=== PATIENT | female | born 2000 | race Caucasian/White ===

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

== ENCOUNTER → 2019-01-17 15:12 | Outpatient (CLI) | payer MEDICAID, SELFPAY | PROVIDERS: Visit Provider Nurse Practitioner Obstetrics & Gynecology | DX: Z34.90 Encounter for supervision of normal pregnancy, unspecified, unspecified trimester (principal) | CPT/HCPCS: 86403 ==

== ENCOUNTER 2019-02-03 01:57 | Outpatient (CLI) | payer MEDICAID, SELFPAY ==
[2019-02-03 02:30] VITALS: BMI 30.2
[2019-02-03 02:31] VITALS: BMI 30.2
[2019-02-03 02:41] LABS: Microscopic, Urine URINE MICROSCOPIC (MICROSCOPIC)
[2019-02-03 02:43] LABS: Appearance,Urine SL CLOUDY (Clear); Bilirubin,Urine Negative (Negative); Blood, Urine Negative (Negative); Color,Urine YELLOW (Yellow); Glucose,Urine (UA) Negative (Negative); Ketones,Urine Negative (Negative); Leukocyte Esterase,Urine 1+ (Negative); Nitrate,Urine Negative (Negative); Protein,Urine Negative (Negative); Specific Gravity, Urine <= 1.005 (1.005-1.030); Urobilinogen,Urine 0.2 EU/dl (0.2)
[2019-02-03 02:45] LABS: Squamous Epithelial Cell,Urine 20-50 #/hpf (0-5)
[2019-02-03 02:48] LABS: Amphetamine/Metha Screen,Urine Negative ng/mL (<1000); Barbiturates Screen,Urine Negative ng/mL (<200); Benzodiazepines Screen,Urine Negative ng/mL (<200); Cannabinoid Screen,Urine Negative ng/mL (<50); Cocaine Screen,Urine Negative ng/mL (<300); Methadone Screen,Urine Negative ng/mL (<300); Opiate Screen,Urine Negative ng/mL (<300); Phencyclidine Screen,Urine Negative ng/mL (<25)
== END 2019-02-03 03:30 | disposition home or self-care (01) ==
LOC: OBOUT 01:59 → OB 02:00
PROVIDERS: PCP Internal Medicine Adolescent Medicine; Referring Provider Nurse Practitioner Obstetrics & Gynecology; Visit Provider Obstetrics & Gynecology
DX: O60.03 Preterm labor without delivery, third trimester (principal); Z3A.38 38 weeks gestation of pregnancy
CPT/HCPCS: 59025; 80305; 81001; 87086

== ENCOUNTER 2019-02-03 13:32 | Outpatient (CLI) | payer MEDICAID, SELFPAY ==
[2019-02-03 13:45] VITALS: BP 108/66; PULSE 103; RESP 18; TEMP 36.9; O2SAT 97; BMI 29.9
[2019-02-03 15:00] LABS: Amphetamine/Metha Screen,Urine Negative ng/mL (<1000); Barbiturates Screen,Urine Negative ng/mL (<200); Benzodiazepines Screen,Urine Negative ng/mL (<200); Cannabinoid Screen,Urine Negative ng/mL (<50); Cocaine Screen,Urine Negative ng/mL (<300); Methadone Screen,Urine Negative ng/mL (<300); Opiate Screen,Urine Negative ng/mL (<300); Phencyclidine Screen,Urine Negative ng/mL (<25)
== END 2019-02-03 15:45 | disposition home or self-care (01) ==
LOC: OBOUT 13:34 → OB 13:35
PROVIDERS: PCP Internal Medicine Adolescent Medicine; Visit Provider Nurse Practitioner Obstetrics & Gynecology
DX: O60.03 Preterm labor without delivery, third trimester (principal); Z3A.38 38 weeks gestation of pregnancy
CPT/HCPCS: 59025; 80305; 96360

== ENCOUNTER 2019-02-06 21:47 | Outpatient (CLI) | payer MEDICAID, SELFPAY ==
[2019-02-06 21:54] VITALS: BMI 30.4
[2019-02-06 21:55] VITALS: BP 116/62; PULSE 102; RESP 18; TEMP 37.1; O2SAT 95; BMI 30.4
[2019-02-06 22:03] LABS: Microscopic, Urine URINE MICROSCOPIC (MICROSCOPIC)
[2019-02-06 22:12] LABS: Amphetamine/Metha Screen,Urine Negative ng/mL (<1000); Appearance,Urine CLEAR (Clear); Barbiturates Screen,Urine Negative ng/mL (<200); Benzodiazepines Screen,Urine Negative ng/mL (<200); Bilirubin,Urine Negative (Negative); Blood, Urine Negative (Negative); Cannabinoid Screen,Urine Negative ng/mL (<50); Cocaine Screen,Urine Negative ng/mL (<300); Color,Urine YELLOW (Yellow); Glucose,Urine (UA) Negative (Negative); Ketones,Urine Negative (Negative); Leukocyte Esterase,Urine 1+ (Negative); Methadone Screen,Urine Negative ng/mL (<300); Nitrate,Urine Negative (Negative); Opiate Screen,Urine Negative ng/mL (<300); Phencyclidine Screen,Urine Negative ng/mL (<25); Protein,Urine Negative (Negative); Specific Gravity, Urine <= 1.005 (1.005-1.030); Urobilinogen,Urine 0.2 EU/dl (0.2)
[2019-02-06 22:34] LABS: Bacteria,Urine Trace /lpf
== END 2019-02-06 23:00 | disposition home or self-care (01) ==
LOC: OBOUT 21:48 → OB 21:48
PROVIDERS: PCP Internal Medicine Adolescent Medicine; Visit Provider Obstetrics & Gynecology
DX: O60.03 Preterm labor without delivery, third trimester (principal); Z3A.38 38 weeks gestation of pregnancy
CPT/HCPCS: 59025; 80305; 81001; 87086

== ENCOUNTER 2019-02-08 19:16 | Outpatient (CLI) | payer MEDICAID, SELFPAY ==
[2019-02-08 19:24] VITALS: BMI 30.4
[2019-02-08 19:40] LABS: Microscopic, Urine URINE MICROSCOPIC (MICROSCOPIC)
[2019-02-08 19:47] LABS: Appearance,Urine CLEAR (Clear); Bilirubin,Urine Negative (Negative); Blood, Urine Negative (Negative); Color,Urine YELLOW (Yellow); Glucose,Urine (UA) Negative (Negative); Ketones,Urine Negative (Negative); Leukocyte Esterase,Urine Negative (Negative); Nitrate,Urine Negative (Negative); Protein,Urine Negative (Negative); Urobilinogen,Urine 0.2 EU/dl (0.2)
[2019-02-08 19:51] LABS: Amphetamine/Metha Screen,Urine Negative ng/mL (<1000); Barbiturates Screen,Urine Negative ng/mL (<200); Benzodiazepines Screen,Urine Negative ng/mL (<200); Cannabinoid Screen,Urine Negative ng/mL (<50); Cocaine Screen,Urine Negative ng/mL (<300); Methadone Screen,Urine Negative ng/mL (<300); Opiate Screen,Urine Negative ng/mL (<300); Phencyclidine Screen,Urine Negative ng/mL (<25)
[2019-02-08 19:53] LABS: Amorphous Sediment,Urine Trace /lpf; WBC,Urine Occasional #/hpf (0-3)
[2019-02-08 20:15] LABS: Fetal Membrane Rupture (Rapid) Negative (Negative)
[2019-02-08 20:23] VITALS: BP 116/69; PULSE 95; RESP 18; TEMP 37.1; O2SAT 98; BMI 30.4
== END 2019-02-08 20:55 | disposition home or self-care (01) ==
LOC: OBOUT 19:18 → OB 19:20
PROVIDERS: PCP Nurse Practitioner Obstetrics & Gynecology; Visit Provider Nurse Practitioner Obstetrics & Gynecology
DX: O60.03 Preterm labor without delivery, third trimester (principal); Z3A.38 38 weeks gestation of pregnancy
CPT/HCPCS: 59025; 80305; 81001; 84112

== ENCOUNTER 2019-02-10 14:51 | Outpatient (CLI) | payer MEDICAID, SELFPAY ==
[2019-02-10 15:12] VITALS: BP 115/57; PULSE 90; RESP 18; TEMP 36.8; O2SAT 98; BMI 30.4
[2019-02-10 15:45] LABS: Microscopic, Urine URINE MICROSCOPIC (MICROSCOPIC)
[2019-02-10 15:54] LABS: Appearance,Urine CLOUDY (Clear); Bilirubin,Urine Negative (Negative); Blood, Urine Negative (Negative); Color,Urine YELLOW (Yellow); Glucose,Urine (UA) Negative (Negative); Ketones,Urine Negative (Negative); Leukocyte Esterase,Urine 3+ (Negative); Nitrate,Urine Negative (Negative); Protein,Urine Negative (Negative); Urobilinogen,Urine 0.2 EU/dl (0.2)
[2019-02-10 15:55] LABS: Amphetamine/Metha Screen,Urine Negative ng/mL (<1000); Barbiturates Screen,Urine Negative ng/mL (<200); Benzodiazepines Screen,Urine Negative ng/mL (<200); Cannabinoid Screen,Urine Negative ng/mL (<50); Cocaine Screen,Urine Negative ng/mL (<300); Methadone Screen,Urine Negative ng/mL (<300); Opiate Screen,Urine Negative ng/mL (<300); Phencyclidine Screen,Urine Negative ng/mL (<25)
[2019-02-10 16:12] LABS: Bacteria,Urine 1+ /lpf; Squamous Epithelial Cell,Urine 20-50 #/hpf (0-5)
--- NOTE | 2019-02-10 17:29 | P.PN_ITS ---
Internal Medicine - PN: Subj *Date: 02/10/19 *Time: 17:28 Interval history: She is a 19-year-old 2 para 1 at 38+ weeks gestational age. She is scheduled for in 48 hours time. She complains of contractions and discomfort. Exam Vital signs and Labs for Last 24 Hours: Temp Pulse Resp BP Pulse Ox 98.3 F 90 18 115/57 L 98 02/10/19 15:12 02/10/19 15:12 02/10/19 15:12 02/10/19 15:12 02/10/19 15:12 Laboratory Results - last 24 hr 02/10/19 15:07: Urine Color Yellow, Urine Appearance Cloudy, Urine pH 7.0, Ur Specific [place] 1.010, Urine Protein Negative, Urine Glucose (UA) Negative, Urine Ketones Negative, Urine Blood Negative, Urine Nitrate Negative, Urine Bilirubin Negative, Urine Urobilinogen 0.2, Ur Leukocyte Esterase 3+ A, Urine WBC 5-10, Ur Squamous Epith Cells 20-50, Urine Bacteria 1+ 02/10/19 15:07: Urine Opiates Screen Negative, Urine Methadone Screen Negative, Ur Barbituates Screen Negative, Ur Phencyclidine Scrn Negative, Ur Amphetamines Screen Negative, U Benzodiazepines Scrn Negative, Urine Cocaine Screen Negative, U Marijuana (THC) Screen Negative I & O for Last 24 hours: Intake & Output 02/08/19 02/09/19 02/10/19 02/11/19 11:59 11:59 11:59 11:59 Weight 172 lb - Constitutional no acute distress - *Routine HEENT Exam Head: Present: normocephalic Eye: Present: EOMI, PERRL ENT: Present: mucous membranes moist - *Routine Exam Patient deferred: external exam, groin exam, perineal exam Assessment and Plan (1) False labor Current visit: Yes Status: Acute Category: Medical Code(s): O47.9 - False labor, unspecified - Assessment and plan all Dx Assessment and Plan for all problems:: Her cervix is 2 cm 50% effaced and has not changed. She is having irregular contractions she does not appear to be in any distress. As result of that we are giving her Vistaril to help her sleep and she will follow-up with me in the morning. We will plan her at 48 hours.
== END 2019-02-10 17:36 | disposition home or self-care (01) ==
LOC: OBOUT 14:53 → OB 14:53
PROVIDERS: PCP Internal Medicine Adolescent Medicine; Visit Provider Nurse Practitioner Obstetrics & Gynecology
DX: O60.03 Preterm labor without delivery, third trimester (principal); Z3A.39 39 weeks gestation of pregnancy
CPT/HCPCS: 59025; 80305; 81001; 87086

== ENCOUNTER 2019-02-11 16:23 | Inpatient (IN) ==
[2019-02-11 17:29] LABS: Microscopic, Urine URINE MICROSCOPIC (MICROSCOPIC)
[2019-02-11 18:01] LABS: Appearance,Urine CLEAR (Clear); Bilirubin,Urine Negative (Negative); Blood, Urine Negative (Negative); Color,Urine YELLOW (Yellow); Glucose,Urine (UA) Negative (Negative); Ketones,Urine Negative (Negative); Leukocyte Esterase,Urine 1+ (Negative); PH,Urine 6.5 (5.0-8.5); Protein,Urine Negative (Negative); Urobilinogen,Urine 0.2 EU/dl (0.2)
[2019-02-11 18:05] LABS: Amphetamine/Metha Screen,Urine Negative ng/mL (<1000); Barbiturates Screen,Urine Negative ng/mL (<200); Benzodiazepines Screen,Urine Negative ng/mL (<200); Cannabinoid Screen,Urine Negative ng/mL (<50); Cocaine Screen,Urine Negative ng/mL (<300); Methadone Screen,Urine Negative ng/mL (<300); Opiate Screen,Urine Negative ng/mL (<300); Phencyclidine Screen,Urine Negative ng/mL (<25)
[2019-02-11 18:10] LABS: Bacteria,Urine Trace /lpf
[2019-02-11 19:18] LABS: Basophils % 0.2 % (0.1-2.0); Eosinophils # 0.1 K/mm3 (0.0-0.4); Eosinophils % 0.9 % (0.1-12.0); Hematocrit 39.3 % (37.0-47.0); Hemoglobin 13.1 g/dL (12.2-16.2); Lymphocytes # 1.8 K/mm3 (0.7-4.5); Lymphocytes % 17.8 % (10-50); Mean Corpuscular HGB Conc 33.4 g/dL (31.8-35.4); Mean Platelet Volume 8.1 fl (7.4-10.4); Monocytes # 0.5 K/mm3 (0.1-1.0); Neutrophils # 7.8 K/mm3 (1.8-7.8); Neutrophils % 76.1 % (37.0-80.0); Platelet Count 257 K/mm3 (142-424); Red Blood Count 4.37 M/mm3 (4.20-5.40); Red Cell Distribution Width 15.8 % (11.5-17.5); White Blood Count 10.2 K/mm3 (4.5-13.0)
--- NOTE | 2019-02-11 19:43 | History & Physical Report ---
OB - H&P: HPI Antepartum - History of Present Illness Chief complaint: Term , contractions, pain History of present illness: She is a 19-year-old 2 para 1 at 39 weeks. She is due for a section tomorrow morning. She came in having contractions. She has not changed her cervix. She has had multiple admissions over the last couple of weeks and her cervix has remained 2 cm 50% and station -2. We are going to admit her overnight for pain relief and her is scheduled for tomorrow morning. - History of Present Criteria for establishing EDC:: LMP confirmed by 1st trimester US care: good care Ultrasounds: normal 1st trimester US, normal mid trimester US Obstetrical complications: none Medical complications: none [facility] History I have reviewed the patient's past medical history: Yes Medical History: Reports:: Anxiety, Asthma, Depression, Migraine Denies:: Cancer, Diabetes Mellitus Type 1, Diabetes Mellitus Type 2, MRSA *Have you ever received a pneumonia vaccine?: No *Have you received a flu vaccine this season?: No Other Medical History: Reports: Arthritis, Thyroid Disease Other Surgeries: Yes: No Previous Surgery, Amputation: No Fractures: No - *Social History Smoking Status: Current every day smoker Tobacco Type: cigarettes # Packs/Day (cigarettes): 1 #Yrs smoked (if former smoker): 2 Alcohol Intake: never Alcohol Intake Frequency:: holidays/special occasions only Substance Use Type: denies use *Occupational Status:: unemployed Housing: house Household Members: family *Travel in the last 8 weeks: None - Psychiatric History Pschychiatric History:: Reports:: Anxiety, Depression Family Hx:: Diabetes, Hypertension, Cancer Para: 1 Review of Systems - Review of Systems Review of systems:: pertinent systems reviewed and negative unless documented below Meds Home Medications Medication Instructions Recorded Confirmed Type 1 tab PO HS 06/12/17 02/11/19 History vitamin,calcium,vbdagora-yafl-kxash acid tablet RX: Docusate Sodium 100 mg PO DAILY 02/06/19 02/11/19 History RX: Ferrous Sulfate 325 mg PO DAILY 02/06/19 02/11/19 History RX: Loratadine [Allergy Relief] 10 mg PO DAILY 02/06/19 02/11/19 History RX: Sertraline HCl [Zoloft] 50 mg PO DAILY 02/06/19 02/11/19 History Allergies Allergy/AdvReac Type Severity Reaction Status Date / Time cephalexin [From KEFLEX] Allergy Intermediate I-RASH Verified 02/11/19 09:52 OB - H&P: Exam - Physical Exam Vital signs: Temp Pulse Resp BP Pulse Ox 98.4 F 86 20 133/71 98 02/11/19 17:04 02/11/19 17:04 02/11/19 17:04 02/11/19 17:04 02/11/19 17:04 - Constitutional no acute distress - Routine HEENT Exam Head: Present: normocephalic Eye: Present: EOMI, PERRL ENT: Present: mucous membranes moist - Routine Neck Exam Present: supple, full ROM - Routine Respiratory Exam Absent: accessory muscle use (good air entry bilaterally), respiratory distress, wheezes, crackles - Routine Cardiovascular Exam Present: RRR. Absent: murmur - Routine Abdominal Exam Present: soft, normoactive bowel sounds. Absent: tenderness, distended, guarding - Routine Rectal Exam Patient deferred: visual exam, digital exam - Routine Exam Patient deferred: external exam, groin exam, perineal exam - Routine Extremities Exam Present: full ROM. Absent: cyanosis, edema - Routine Skin Exam Present: intact. Absent: cyanosis - Routine Neurological Exam Present: alert, oriented X3 - Routine Psychiatric Exam Present: normal affect OB - Results - Labs Labs: Short CBC 02/11/19 Range/Units 19:08 WBC 10.2 (4.5-13.0) K/mm3 Hgb 13.1 (12.2-16.2) g/dL Hct 39.3 (37.0-47.0) % Plt Count 257 (142-424) K/mm3 Urine 02/11/19 Range/Units 16:30 Urine Color Yellow (Yellow) Urine Appearance Clear (Clear) Urine pH 6.5 (5.0-8.5) Ur Specific [place] 1.010 (1.005-1.030) Urine Protein Negative (Negative) Urine Glucose (UA) Negative (Negative) OB - A/P Antepartum (1) Previous section Current visit: Yes Status: Acute (2) Delivery by section of full-term Current visit: Yes Status: Acute - Additional Plan Planning to breastfeed?: No Plan: expectant management Additional Information:: She is admitted for pain relief overnight and her section is scheduled for tomorrow morning. She is having contractions but her cervix has remained unchanged.
[2019-02-11 20:25] LABS: Anion Gap 15.9 mEq/L (5-15); Calcium 10.6 mg/dL (8.5-10.1)
--- NOTE | 2019-02-12 06:30 | Progress Note ---
[facility] Anesthesia Checklist - Structural Data Admitted From: Inpatient Planned Operative Procedure/s: labor epidural Consent for Planned Operative Procedure(s) Verified: Yes - Additional verifications Anesthesia Reactions: No - Airway Assessment C-Spine Mobility Assessed: Yes TMJ Mobility Assessed: Yes Dentition: Good Dentition - Neurological Assessment Level of Consciousness: Awake, Alert, Appropriate, Restless - Anesthesia Plan Anesthesia Risk discussed: Yes Anesthesia Plan: Verified ASA Class: II Anesthesia Type: Epidural [facility] History I have reviewed the patient's past medical history: Yes Medical History: Reports:: Anxiety, Asthma, Depression, Migraine Denies:: Cancer, Diabetes Mellitus Type 1, Diabetes Mellitus Type 2, MRSA *Have you ever received a pneumonia vaccine?: No *Have you received a flu vaccine this season?: No Other Medical History: Reports: Arthritis, Thyroid Disease Anesthesia experience/problems:: none Other Surgeries: Yes: No Previous Surgery, Amputation: No Fractures: No - *Social History Educational Level: Completed High School Smoking Status: Current every day smoker Tobacco Type: cigarettes # Packs/Day (cigarettes): 1 #Yrs smoked (if former smoker): 2 Alcohol Intake: never Alcohol Intake Frequency:: holidays/special occasions only Substance Use Type: denies use *Occupational Status:: unemployed Housing: house Household Members: family *Travel in the last 8 weeks: None - Psychiatric History Pschychiatric History:: Reports:: Anxiety, Depression Family Hx:: Diabetes, Hypertension, Cancer Para: 1
--- NOTE | 2019-02-12 08:20 | Operative Note ---
Date of procedure: 02/12/19 Pre-op Diagnosis:: Term , previous section Post-op Diagnosis:: Term , previous section Procedure performed:: Repeat lower segment transverse section Surgeon:: Zain Brar MD Mash Grinder(s):: Dr. Rey PLASMA CUTTING MACHINE OPERATOR:: Dakota Pena Anesthesia: epidural Estimated blood loss (mL): 600 Clinical Note:: She is a 19-year-old 2 para 1 whose had a previous section. She was offered repeat lower segment transverse section at term. Operative findings:: She delivered a liveborn female child at 7:49 AM on the morning of February 12, 2019. Baby had Apgars of 8 at 1 minute and 9 at 5 minutes. pH was 7.37. There was thin meconium. The lower uterine segment was extremely thin. Operative note:: She was taken to the operating room where epidural anesthesia was found be adequate. She was prepped and draped in normal sterile fashion in the supine position with a leftward tilt. A Covington catheter was in the bladder. A Pfannenstiel skin incision was made with knife then carried through to the underlying layer of fascia with cautery. The fascia was opened in the midline with cautery and extended laterally using Solis scissors. [place] clamps were applied to the superior aspect of the fascial incision which was tented up and the underlying rectus muscles dissected off using cautery. The Holly clamps were then applied to the inferior aspect of the fascial incision which in a similar f ashion was tented up and the underlying rectus muscles dissected off using cautery. The rectus muscles were then in the midline, the peritoneum identified, and entered sharply with Metzenbaum scissors. This incision was then extended superiorly and inferiorly with cautery. We had good visualization of the bladder inferiorly. The bladder peritoneum was then opened in the midline and extended laterally using Metzenbaum scissors. A bladder flap was created digitally. Transverse incision was made through the uterine muscle to the amnion. This incision was then extended laterally using fingers traction. The amnion was entered sharply with knife. There was thin meconium in the amniotic fluid. The 's head was then delivered atraumatically. This was followed by the anterior shoulder and the rest of the 's body atraumatically. The oropharynx and nasopharynx were DeLee suctioned. The was then handed off to Dr. Guzmán who assigned Apgars of 8 at 1 minute and 9 at 5 minutes. We then obtained cord blood as well as cord pH. The pH was 7.37. Using gentle traction on the cord and countertraction on the fundus I was able to easily deliver the placenta intact. It had a normal three-vessel cord. The uterus was then cleared of clots and debris . The uterine incision was then closed using running 0 Vicryl suture in a locked fashion. A second layer of the same suture was used to imbricate the first layer. The bladder peritoneum was then closed using running 2-0 Vicryl suture in a locked fashion. The gutters and cul-de-sac were then cleared of clots and debris . Once again hemostasis was assured. The uterus was returned to the abdominal cavity. The peritoneum was grasped with Megan clamps and closed using running 2-0 Vicryl suture. The rectus muscles were then reapproximated using running 0 Vicryl suture. The fascia was closed using running #1 Vicryl suture. The subcutaneous tissues were then irrigated with warm water followed by closure Primitivo's fascia using running 2-0 Monocryl suture. The skin was closed with carlos. I then cleaned the skin with Hibiclens. Sterile dressings were applied. She tolerated the procedure well and was taken to the recovery room in excellent condition. All sponges, instrument and needle counts were correct. Estimated blood loss was approximately 600 mL. Condition: stable Disposition: PACU Specimens:: None Complications:: None
--- NOTE | 2019-02-12 08:26 | Progress Note ---
[facility] Anesthesia Record Part II Discharge Time: 08:52 Destination: Obstetric PACU nurse assessment reviewed?: Yes Patient Condition:: Good Anesthesia Complications:: None Swallowing reflex intact?: Yes Cyanosis?: No
--- NOTE | 2019-02-12 08:26 | Progress Note ---
[facility] Anesthesia Record Part I Intake, IV Amount: 1,200 Estimated blood loss (mL): 600 Urine output (mL): 300 Blood Products used (#): none Blood Pressure: 141/75 SaO2: 98 Pulse Rate: 100 Respiratory Rate: 16 Temperature: 98.6 F Patient is:: Awake, Drowsy, Stable Stable to PACU at:: 08:22
--- NOTE | 2019-02-12 11:09 | Pharmacy Consult Notes ---
[facility] Pharmacy VTE Monitoring - Patient Demographics Admission date: 02/12/19 Report Date: 02/12/19 Time: 11:09 Allergies/Adverse Reactions: Patient Allergies cephalexin [From KEFLEX] Allergy (Intermediate, Verified 02/11/19 09:52) I-RASH Height: 1.52 m Weight: 78.018 kg Patient Problems: Current Active Problems Previous section (Acute) Delivery by section of full-term infant (Acute) - VTE Risk Labs: VTE Related Lab Results Hgb 13.1 g/dL (12.2-16.2) 02/11/19 19:08 Hct 39.3 % (37.0-47.0) 02/11/19 19:08 Plt Count 257 K/mm3 (142-424) 02/11/19 19:08 BUN 4 mg/dL (7-18) L 02/11/19 19:08 Creatinine 0.75 mg/dL (0.55-1.02) 02/11/19 19:08 Estimated Creat Clear 147 mL/min (50-200) 02/11/19 19:08 - Prophylaxis VTE Prophylaxis Ordered?: Yes Types of VTE Prophylaxis: IPCS Thigh High Location of Applied Device: Bilateral Lower Extremeties
[2019-02-12 12:13] LABS: Hematocrit 33.1 % (37.0-47.0)
[2019-02-12 12:14] LABS: Hemoglobin 10.9 g/dL (12.2-16.2)
[2019-02-12 16:29] LABS: Hemoglobin 9.1 g/dL (12.2-16.2)
[2019-02-13 08:35] LABS: Basophils % 0.2 % (0.1-2.0); Eosinophils # 0.1 K/mm3 (0.0-0.4); Eosinophils % 0.6 % (0.1-12.0); Hematocrit 26.8 % (37.0-47.0); Hemoglobin 8.8 g/dL (12.2-16.2); Lymphocytes # 2.5 K/mm3 (0.7-4.5); Lymphocytes % 20.8 % (10-50); Mean Corpuscular HGB Conc 32.7 g/dL (31.8-35.4); Mean Corpuscular Volume 91.9 fl (81-99); Monocytes # 0.6 K/mm3 (0.1-1.0); Neutrophils # 8.8 K/mm3 (1.8-7.8); Neutrophils % 73.6 % (37.0-80.0); Platelet Count 221 K/mm3 (142-424); Red Blood Count 2.92 M/mm3 (4.20-5.40); Red Cell Distribution Width 15.9 % (11.5-17.5)
--- NOTE | 2019-02-13 08:50 | Progress Note ---
Internal Medicine - PN: Subj *Date: 02/13/19 *Time: 08:49 Interval history: She is doing very well this morning. She denies any fever or chills. We are waiting for her blood work. She looks well. She does not look pale. Her hemoglobin yesterday was 9.1. Her lochia is normal. She is bottlefeeding. Exam Vital signs and Labs for Last 24 Hours: Temp Pulse Resp BP Pulse Ox 98.3 F 83 18 112/57 L 98 02/13/19 05:23 02/13/19 05:23 02/13/19 05:23 02/13/19 05:23 02/13/19 05:23 Laboratory Results - last 24 hr 02/12/19 12:00: Hgb 10.9 L D, Hct 33.1 L 02/12/19 16:00: Hgb 9.1 L D, Hct 28.0 L I & O for Last 24 hours: Intake & Output 02/10/19 02/11/19 02/12/19 02/13/19 11:59 11:59 11:59 11:59 Intake Total 1200 / 1200 Balance 1200 / 1200 Weight 172 lb Microbiology Reports for the Last 24 Hours: Microbiology 02/11/19 16:30 Urine,Clean Catch Urine Culture - Final Multiple organisms, suggests contamination. - Constitutional no acute distress Assessment and Plan (1) Previous section Current visit: Yes Status: Acute Category: Surgical Code(s): Z98.891 - History of uterine scar from previous surgery (2) Delivery by section of full-term infant Current visit: Yes Status: Acute Category: Medical Code(s): O82 - Encounter for delivery without indication (3) hemorrhage Current visit: Yes Status: Acute Category: Medical Code(s): O72.1 - Other immediate hemorrhage - Assessment and plan all Dx Assessment and Plan for all problems:: She is doing well this morning. We will await her blood work. She will be here for another 48 hours.
--- NOTE | 2019-02-14 09:17 | Progress Note ---
Internal Medicine - PN: Subj *Date: 02/14/19 *Time: 09:16 Interval history: She continues to do well this morning. She has some complaints of swelling in her legs but otherwise she is doing well. Her incision is clean and dry. She is bottlefeeding. Her lochia is normal. Exam Vital signs and Labs for Last 24 Hours: Temp Pulse Resp BP Pulse Ox 98.2 F 80 18 95/54 L 100 02/14/19 08:00 02/14/19 08:00 02/14/19 08:00 02/14/19 08:00 02/14/19 08:00 I & O for Last 24 hours: Intake & Output 02/11/19 02/12/19 02/13/19 02/14/19 11:59 11:59 11:59 11:59 Intake Total 1200 / 1200 Balance 1200 / 1200 Weight 172 lb Microbiology Reports for the Last 24 Hours: Microbiology 02/11/19 16:30 Urine,Clean Catch Urine Culture - Final Multiple organisms, suggests contamination. - Constitutional no acute distress - *Routine Extremities Exam Present: edema. Absent: calf tenderness Comments: She has 2+ edema of her lower legs. Assessment and Plan (1) Previous section Current visit: Yes Status: Acute Category: Surgical Code(s): Z98.891 - History of uterine scar from previous surgery (2) Delivery by section of full-term Current visit: Yes Status: Acute Category: Medical Code(s): O82 - Encounter for delivery without indication (3) hemorrhage Current visit: Yes Status: Acute Category: Medical Code(s): O72.1 - Other immediate hemorrhage - Assessment and plan all Dx Assessment and Plan for all problems:: She continues to do well. We will encourage her to put her feet up. We will see her back in the morning. We will plan to send her home tomorrow.
[2019-02-15 09:17] VITALS: BP 116/70
--- NOTE | 2019-02-15 09:53 | Discharge Summary ---
General - General Admission date:: 02/11/19 Discharge date: 02/15/19 HPI HPI: She is a 19-year-old 2 now para 2 who was 39 weeks gestational age. She has had a previous section was offered repeat lower segment transverse section at term. She was admitted the night before her surgery with occasional contractions. Hospital Course Hospital Course: On February 12, 2019 she underwent a repeat lower segment transverse section. She delivered a liveborn female child at 7:49 AM. Baby had Apgars of 8 at 1 minute and 9 at 5 minutes. She weighed 8 pounds 12 ounces. She has done well postoperatively and has remained afebrile throughout her hospitalization. She is eating and drinking and ambulating. She is bottlefeeding. Her lochia is normal. She has a positive blood, she is rubella immune and was group A streptococcus negative. She was given the usual instructions with respect to limiting her activity, driving and sexual activity. She was given an injection of Depo-Provera prior to discharge. Her condition on discharge is stable and improved. She will be given a prescription for Percocet 5/325 number 30 tablets. She will also take Motrin along with this. Her condition on discharge is stable. Rhogam Administration: Not Indicated Objective Vital signs: Temp Pulse Resp BP Pulse Ox 98.0 F 90 20 116/70 98 02/15/19 09:17 02/15/19 09:17 02/15/19 09:17 02/15/19 09:17 02/15/19 09:17 no acute distress DS: Diagnosis - Discharge Diagnosis (1) Previous section Status: Acute (2) Delivery by section of full-term Status: Acute (3) hemorrhage Status: Acute Discharge Plan - Patient Discharge Instructions ACTIVITY: No heavy lifting DIET: continue same diet - Follow up Plan Disposition: Home, Self-Intermediate Medications: Home Medications Medication Instructions Recorded Confirmed Type 1 tab PO HS 06/12/17 02/12/19 History vitamin,calcium,wceiedcx-kmym-ttxvv acid tablet Docusate Sodium 100 mg PO DAILY 02/06/19 02/12/19 History Ferrous Sulfate 325 mg PO DAILY 02/06/19 02/12/19 History Loratadine [Allergy Relief] 10 mg PO DAILY 02/06/19 02/12/19 History Sertraline HCl [Zoloft] 50 mg PO DAILY 02/06/19 02/12/19 History Oxycodone HCl/Acetaminophen 1 - 2 tab PO Q4-6H PRN #30 tab 02/15/19 Rx [Percocet 5/325mg tablet] Prescriptions/Medication Reconciliation: New Oxycodone HCl/Acetaminophen [Percocet 5/325mg tablet] 1 - 2 tab PO Q4-6H PRN #30 tab PRN Reason: Severe Pain Continued vitamin,calcium,fpjeucgx-xzpd-ohtpe acid tablet 1 tab PO HS Sertraline HCl [Zoloft] 50 mg PO DAILY Docusate Sodium 100 mg PO DAILY Loratadine [Allergy Relief] 10 mg PO DAILY Ferrous Sulfate 325 mg PO DAILY - Problem Reconciliation Problems Reviewed?: Yes
== END 2019-02-15 14:45 | disposition home or self-care (01) | DRG 788 ==
LOC: OBOUT 16:23 → OB 16:26
PROVIDERS: ADMIT Nurse Practitioner Obstetrics & Gynecology; ATTEND Nurse Practitioner Obstetrics & Gynecology
CPT/HCPCS: 36415; 59025; 80048; 80305; 81001; 82800; 84112; 85014; 85018; 85025; 86850; 87086; J0595; J1050

== ENCOUNTER → 2019-12-24 10:48 | Outpatient (CLI) | payer OTHER, SELFPAY ==
[2019-12-27 19:55] LABS: HCG,Quantitative 16873 mIU/ml (0-5.42)
== END ==
PROVIDERS: Visit Provider Nurse Practitioner Obstetrics & Gynecology
DX: Z34.90 Encounter for supervision of normal pregnancy, unspecified, unspecified trimester (principal)
CPT/HCPCS: 36415; 84702

== ENCOUNTER → 2019-12-30 13:56 | Outpatient (CLI) | payer OTHER, SELFPAY ==
[2020-01-02 09:11] LABS: Neisseria gonorrhoeae, NAA Negative (Negative)
== END ==
PROVIDERS: Visit Provider Nurse Practitioner Obstetrics & Gynecology
DX: Z34.90 Encounter for supervision of normal pregnancy, unspecified, unspecified trimester (principal)
CPT/HCPCS: 87491; 87591

== ENCOUNTER → 2020-01-05 12:35 | Outpatient (CLI) | payer OTHER, SELFPAY ==
--- NOTE | 2020-01-05 12:35 | US_ITS ---
PROCEDURE: US OB <= 14 WEEKS FETUS CLINICAL INDICATION: for dates Early Ob for dates COMPARISON: US OBFEMAT US OB /maternal detail from 09/30/2018 FINDINGS: An intrauterine gestational sac is present with a pole with a crown-rump length of 1.67cm correlating to gestational age of 8weeks 1day. heart tones are present with an FHR of 178bpm. Yolk sac is noted. There is a 1.3 cm right ovarian cyst containing a small at septation. There is a 2 cm left ovarian cyst. IMPRESSION: Live IUP at 8 weeks 1 day Estimated due date by Ultrasound is 08/15/2020 Dictated b Yehuda Mcfadden MD 01/05/2020 16:00 Yehuda Mcfadden MD in [facility] 01/05/2020 16:00
== END ==
PROVIDERS: PCP Internal Medicine Adolescent Medicine; Visit Provider Nurse Practitioner Obstetrics & Gynecology
DX: Z34.90 Encounter for supervision of normal pregnancy, unspecified, unspecified trimester (principal)
CPT/HCPCS: 76801

== ENCOUNTER 2020-01-22 12:39 | Emergency (ER) | payer OTHER, SELFPAY ==
[2020-01-22 12:51] VITALS: BP 108/67; PULSE 91; RESP 16; TEMP 37; O2SAT 98; BMI 21.2
--- NOTE | 2020-01-22 13:01 | US_ITS ---
PROCEDURE: US OB TRANSVAGINAL CLINICAL INDICATION: bleeding MS or bleeding COMPARISON: US US OB <= 14 WEEKS FETUS from 01/05/2020 FINDINGS: An intrauterine gestational sac is present with a pole with a crown-rump length of 4.07cm correlating to gestational age of 11weeks. heart tones are present with an FHR of 164bpm. Yolk sac is noted. There is a 2 cm left ovarian cyst IMPRESSION: Live IUP at 11 weeks Estimated due date by Ultrasound is 08/12/2020 Dictated by: Yehuda Mcfadden MD 01/22/2020 14:40 Yehuda Mcfadden MD in [facility] 01/22/2020 14:40
[2020-01-22 13:10] VITALS: BP 128/73; PULSE 78; O2SAT 98
--- NOTE | 2020-01-22 13:13 | HMH.EDUROGF ---
ED Disposition Clinical Impression: Vaginal bleeding during Disposition: Home, Self-Care Condition on Discharge: Good Instructions: DI for Vaginal Bleeding Additional Instructions: You were seen on an emergency basis. It is very important that you follow up with your primary care provider and/or specialist as we discussed within 2 days. All labs and imaging were obtained and interpreted here to rule out life threatening emergencies, but your final results should be reviewed by your primary doctor at your follow up appointment. Please return to the emergency department if any of your symptoms worsen, or if they do not improve as we discussed. Referrals: Rubens Guzmán MD [Primary Care Provider] - - Critical Care Critical Care Time: No Attestation: On 01/22/20, the high probability of a clinically significant, sudden or life threatening deterioration of the following system(s) required my full and direct attention, intervention and personal management. The time I documented below is in addition to time spent performing reported procedures but includes the following listed in this critical care notation. Medical Decision Making - Jairo Inquiry Pt receiving controlled substance: No Vital Signs: 01/22/20 12:51 01/22/20 13:10 Temperature 98.6 F Temperature Source Oral Pulse Rate [Right Brachial] 91 H 78 Respiratory Rate 16 Blood Pressure [Right Arm] 108/67 L 128/73 Blood Pressure Mean [Right Arm] 80 91 Blood Pressure Source [Right Arm] Automatic Cuff Automatic Cuff Blood Pressure Position [Right Arm] Sitting Sitting 02 Sat by Pulse Oximetry 98 98 Oxygen Delivery Method Room Air Room Air - Lab Data Lab Results 01/22/20 13:10: WBC 8.5, RBC 4.62, Hgb 13.2, Hct 38.6, MCV 83.4, MCH 28.6, MCHC 34.3, RDW 14.4, Plt Count 233, MPV 8.6, Neut % (Auto) 70.1, Lymph % (Auto) 25.3, [place] % (Auto) 3.1, Eos % (Auto) 1.2, Baso % (Auto) 0.3, Neut # (Auto) 5.9, Lymph # (Auto) 2.1, [place] # (Auto) 0.3, Eos # (Auto) 0.1, Baso # (Auto) 0.0 01/22/20 13:10: Sodium 139, Potassium 4.1, Chloride 104, Carbon Dioxide 26, Anion Gap 13.1, BUN 5 L, Creatinine 0.60, Estimated Creat Clear 136, Estimated GFR 126, Est GFR ( Amer) 153, Glucose 91, Calcium 9.6, Total Bilirubin 0.3, AST 20, ALT 20, Alkaline Phosphatase 52, Total Protein 7.2, Albumin 4.1, Globulin 3.1, Albumin/Globulin Ratio 1.3, HCG, Quant [id number] H 01/22/20 13:10: Blood Type A Positive, Antibody Screen Negative Result diagrams: 01/22/20 13:10 01/22/20 13:10 Medical Decision Narrative: 20-year-old female approximately 10 weeks presenting with new onset vaginal bleeding. Nontoxic, afebrile, hemodynamically stable initial and repeat abdominal exam negative for rebound/guarding/rigidity. Transvaginal ultrasound demonstrated a viable IUP. Hemoglobin and hematocrit are nonactionable. Electrolytes are normal. Patient has a known urinary tract infection is already being treated. Rh+ RhoGam not indicated. hCG documented and she will follow-up with obstetrics in 2 days. Female Urogenital HPI - General Chief complaint: Vaginal Bleeding Stated complaint: 10 wks preg cramping bleeding Time Seen by Provider: 01/22/20 13:13 Mode of Arrival: Ambulatory Limitations: No Limitations Description of Symptoms (Recalled from ER Triage Doc. by RN): Patient reports she is 10 wks and about an hour ago started having some bright red bleeding and cramping. - History of Present Illness HPI Narrative: This is a 20-year-old female who presents with a 1 hour history of acute onset moderate bright red blood per vagina with associated lower abdominal cramping that feels like a period. She also had some nausea with this. She has a active UTI and was prescribed Macrobid but has not taken her first dose yet. No fever, chills, vomiting, diarrhea, constipation, cough, shortness of breath, weakness. : Yes - Related Data Home Medications Medication Instru
[2020-01-22 13:22] LABS: Basophils % 0.3 % (0.1-2.0); Eosinophils # 0.1 K/mm3 (0.0-0.4); Eosinophils % 1.2 % (0.1-12.0); Hematocrit 38.6 % (37.0-47.0); Hemoglobin 13.2 g/dL (12.2-16.2); Lymphocytes # 2.1 K/mm3 (0.7-4.5); Lymphocytes % 25.3 % (10-50); Mean Corpuscular HGB Conc 34.3 g/dL (31.8-35.4); Mean Corpuscular Hemoglobin 28.6 pg (27.0-31.2); Mean Corpuscular Volume 83.4 fl (81-99); Mean Platelet Volume 8.6 fl (7.4-10.4); Monocytes # 0.3 K/mm3 (0.1-1.0); Monocytes % 3.1 % (1.7-9.3); Neutrophils # 5.9 K/mm3 (1.8-7.8); Neutrophils % 70.1 % (37.0-80.0); Platelet Count 233 K/mm3 (142-424); Red Blood Count 4.62 M/mm3 (4.20-5.40); Red Cell Distribution Width 14.4 % (11.5-17.5); White Blood Count 8.5 K/mm3 (4.8-10.8)
[2020-01-22 13:26] LABS: Chloride 104 mmol/L (98-107); Potassium 4.1 mmoL/L (3.5-5.1); Sodium 139 mmol/L (136-145)
[2020-01-22 13:29] LABS: Alanine Aminotransferase 20 U/L (12-78); Albumin Level 4.1 g/dl (3.5-5.0); Albumin/Globulin Ratio 1.3 (1.1-1.8); Alkaline Phosphatase 52 U/L (38-126); Anion Gap 13.1 mEq/L (5-15); Aspartate Amino Transferase 20 U/L (14-36); Bilirubin,Total 0.3 mg/dl (0.2-1.3); Blood Urea Nitrogen 5 mg/dl (7-17); Calcium 9.6 mg/dl (8.4-10.2); Carbon Dioxide 26 mmol/L (22.0-30.0); Creatinine Clearance Estimated 136 mL/min (50-200); Estimated Glomerular Filt Rate 126 ml/min (>60); GFR (African American) 153 ML/MIN (>60); Globulin 3.1 g/dL (1.3-3.2); Glucose 91 mg/dl (74-100); Total Protein,Serum 7.2 g/dl (6.3-8.2)
[2020-01-22 15:26] VITALS: BP 99/56; PULSE 74; RESP 16; TEMP 37; O2SAT 98
== END 2020-01-22 15:33 | disposition home or self-care (01) ==
PROVIDERS: Emergency Provider Physician Assistant; PCP Internal Medicine Adolescent Medicine
DX: O20.8 Other hemorrhage in early pregnancy (principal); Z3A.10 10 weeks gestation of pregnancy; O23.11 Infections of bladder in pregnancy, first trimester; F41.8 Other specified anxiety disorders; G43.709 Chronic migraine without aura, not intractable, without status migrainosus; J45.909 Unspecified asthma, uncomplicated; F17.210 Nicotine dependence, cigarettes, uncomplicated
CPT/HCPCS: 76817; 80053; 84702; 85025; 86850; 99283

== ENCOUNTER 2020-01-26 16:52 | Emergency (ER) | payer OTHER, SELFPAY ==
[2020-01-26 16:53] VITALS: BP 128/79; PULSE 87; RESP 18; TEMP 36.9; O2SAT 100; BMI 21.2
--- NOTE | 2020-01-26 16:54 | HMH.EDGENADL ---
ED Disposition Clinical Impression: Vaginal bleeding, Threatened Disposition: Home, Self-Care Condition on Discharge: Good Instructions: DI for Vaginal Bleeding, DI for Threatened Additional Instructions: Follow-up with your industrial energy engineer tomorrow as scheduled. Return to the emergency department if you develop vaginal bleeding significant enough to soak 2 pads completely per hour, or if you develop fever, worsening symptoms, other acute new concerns. - Critical Care Critical Care Time: No Attestation: On , the high probability of a clinically significant, sudden or life threatening deterioration of the following system(s) required my full and direct attention, intervention and personal management. The time I documented below is in addition to time spent performing reported procedures but includes the following listed in this critical care notation. Medical Decision Making - Medical Records Medical records reviewed: Yes: I reviewed the patient's medical records. - Jairo Inquiry Pt receiving controlled substance: No Vital Signs: 01/26/20 16:53 Temperature 98.5 F Temperature Source Oral Pulse Rate [Left Radial] 87 Respiratory Rate 18 Blood Pressure [Right Arm] 128/79 Blood Pressure Mean [Right Arm] 95 Blood Pressure Source [Right Arm] Automatic Cuff Blood Pressure Position [Right Arm] Sitting 02 Sat by Pulse Oximetry 100 Oxygen Delivery Method Room Air Medical Decision Narrative: Patient has heart tones of 148, only 1 pad per 3 hours. Symptoms occurred 4 days ago and stopped but ultrasound at that time did not show any placental aberrancies. She is hemodynamically stable and has a soft abdomen with no rebound, guarding or rigidity. Currently on antibiotics for UTI and reportedly taking antibiotics appropriately. No fevers or vomiting that would suggest septic process. Has follow-up with OB tomorrow. Recommended pelvic rest and return if bleeding greater than 2 pads per hour. Discharged home. General Adult HPI - General Stated complaint: 11 wk preg vag bleeding Time Seen by Provider: 01/26/20 16:54 Mode of Arrival: Ambulatory Source of Information: Patient Limitations: No Limitations - History of Present Illness HPI narrative: This is a G3, P2 20-year-old female ( 2 prior c/s) at approximately 11 weeks gestation who presents to the emergency department for evaluation of vaginal bleeding. She also has had some vaginal cramping and lower abdominal cramping. Symptoms started about 3 hours ago. She has only had to change her pad once during this time. No fevers, vomiting. No flank pain. She denies any abnormal vaginal discharge or burning with urination. She is currently on Macrobid and taking her antibiotics as prescribed for a UTI. She had an episode like this about 4 days ago, but symptoms resolved. At that time she had a transvaginal ultrasound here which showed an intrauterine with appropriate heart rate. She has follow-up with her OB tomorrow. - Related Data Home Medications Medication Instructions Recorded Confirmed prenat.vits,clifford,qzd-kwiv-vmmiu 1 tab PO DAILY 12/30/19 12/30/19 Previous Rx's Medication Instructions Recorded promethazine 12.5 mg tablet 12.5 mg PO Q4-6H PRN #30 tab 01/01/20 nitrofurantoin 100 mg PO BID 5 Days #10 cap 01/21/20 monohydrate/macrocrystals 100 mg capsule Allergies Allergy/AdvReac Type Severity Reaction Status Date / Time cephalexin [From KEFLEX] Allergy Intermediate I-RASH Verified 12/30/19 08:40 [facility] History - Hepatitis A Screen Attestation statement:: This patient has been screened for Hepatitis A risk factors. I have reviewed the patient's past medical history: Yes Medical History: Reports:: Anxiety, Asthma, Depression, Migraine Denies:: Cancer, Diabetes Mellitus Type 1, Diabetes Mellitus Type 2, Internal Pacemaker, MRSA Other Medical History: Reports: Arthritis, Thyroid Disease Oth
--- NOTE | 2020-01-26 17:32 | PC.NURSE ---
FHT: 148
[2020-01-26 17:45] VITALS: BP 119/75; PULSE 84; RESP 17; TEMP 36.9; O2SAT 99
== END 2020-01-26 17:46 | disposition home or self-care (01) ==
PROVIDERS: Emergency Provider Emergency Medicine; PCP Internal Medicine Adolescent Medicine
DX: O46.91 Antepartum hemorrhage, unspecified, first trimester (principal); G43.709 Chronic migraine without aura, not intractable, without status migrainosus; F41.8 Other specified anxiety disorders; F17.210 Nicotine dependence, cigarettes, uncomplicated
CPT/HCPCS: 99281

== ENCOUNTER 2020-03-04 11:52 | Emergency (ER) | payer OTHER, SELFPAY ==
[2020-03-04 12:00] VITALS: BP 116/72; PULSE 87; RESP 16; TEMP 36.7; O2SAT 100; BMI 21.6
--- NOTE | 2020-03-04 12:01 | US_ITS ---
PROCEDURE: US OB >= 14 WEEKS FETUS CLINICAL INDICATION: abdominal cramping, bleeding COMPARISON: US US OB TRANSVAGINAL from 01/22/2020 FINDINGS: There is a single live fetus present which is in cephalic presentation. heart and body motion noted. FHR is 163 beats per minute. Average ultrasound age is 16 weeks 6 days. BPD 17 weeks 3 days, OFD 17 weeks 2 days, HC 16 weeks 6 days, AC 16 weeks 4 days, FL 16 weeks 4 days. The placenta is posterior in implantation. There is a subtle area of decreased echogenicity along the subchorionic region of the placenta anteriorly possibly due to small subchorionic bleed. There is a 2.8 cm left ovarian cyst. IMPRESSION: Live IUP at 16 weeks 6 days. Possible small subchorionic bleed. Estimated due date by Ultrasound is 08/13/2020 Dictated by: Yehuda Mcfadden MD 03/04/2020 15:35 Yehuda Mcfadden MD in [facility] 03/04/2020 15:35
[2020-03-04 12:11] LABS: Microscopic, Urine URINE MICROSCOPIC (MICROSCOPIC)
--- NOTE | 2020-03-04 12:12 | HMH.EDGENADL ---
ED Disposition Clinical Impression: Threatened in second trimester, UTI (urinary tract infection) in in second trimester Disposition: Home, Self-Care Condition on Discharge: Fair Instructions: DI for Threatened Additional Instructions: You have been evaluated for vaginal bleeding and . Please follow-up with your MENAGERIE CARETAKER in 24 to 48 hours. Return to the emergency department if you have any new or worsening symptoms. Take fosfomycin for urinary tract infection Prescriptions: Fosfomycin Tromethamine [Monurol] 3 gm PO ONCE 1 Days #1 packet Transmission Status: Pending to [facility] #[id number] Referrals: Rubens Guzmán MD [Primary Care Provider] - Time of Disposition: 14:08 - Critical Care Critical Care Time: No Attestation: On , the high probability of a clinically significant, sudden or life threatening deterioration of the following system(s) required my full and direct attention, intervention and personal management. The time I documented below is in addition to time spent performing reported procedures but includes the following listed in this critical care notation. Medical Decision Making - Medical Records Medical records reviewed: Yes: I reviewed the patient's medical records. - Jairo Inquiry Pt receiving controlled substance: No Vital Signs: 03/04/20 12:00 03/04/20 13:04 03/04/20 13:46 Temperature 98.1 F Temperature Source Oral Pulse Rate [Right Brachial] 87 82 77 Respiratory Rate 16 16 Blood Pressure [Right Arm] 116/72 106/58 L 111/61 Blood Pressure Mean [Right Arm] 86 74 77 Blood Pressure Source [Right Arm] Automatic Cuff Automatic Cuff Automatic Cuff Blood Pressure Position [Right Arm] Sitting Sitting Sitting 02 Sat by Pulse Oximetry 100 98 100 Oxygen Delivery Method Room Air Room Air Room Air - Lab Data Lab Results 03/04/20 11:55: Urine Color Yellow, Urine Appearance Clear, Urine pH 6.0, Ur Specific [place] 1.025, Urine Protein Trace, Urine Glucose (UA) Negative, Urine Ketones 3+, Urine Blood 3+, Urine Nitrate Negative, Urine Bilirubin 1+ A, Urine Urobilinogen 0.2, Ur Leukocyte Esterase 1+ A, Urine RBC 3-5, Urine WBC 3-5, Ur Squamous Epith Cells 5-10, Amorphous Sediment 2+, Urine Bacteria None 03/04/20 12:08: WBC 11.5 H, RBC 3.93 L, Hgb 11.1 L, Hct 34.4 L, MCV 87.5, MCH 28.3, MCHC 32.3, RDW 14.7, Plt Count 290, MPV 8.0, Neut % (Auto) 78.4, Lymph % (Auto) 17.5, Amador % (Auto) 3.3, Eos % (Auto) 0.6, Baso % (Auto) 0.2, Neut # (Auto) 9.0 H, Lymph # (Auto) 2.0, Amador # (Auto) 0.4, Eos # (Auto) 0.1, Baso # (Auto) 0.0 03/04/20 12:08: Sodium 137, Potassium 3.5, Chloride 105, Carbon Dioxide 21 L, Anion Gap 14.5, BUN 9, Creatinine 0.70, Estimated Creat Clear 118, Estimated GFR 106, Est GFR ( Amer) 128, Glucose 75, Calcium 9.3, HCG, Quant [id number] H Result diagrams: 03/04/20 12:08 03/04/20 12:08 Orders (Tests/Meds): ORDERS Category Date Time Status Urine Culture Stat Micro 03/04/20 11:55 Received US OB >= 14 weeks Fetus Stat Ultrasound 03/04/20 12:01 Taken Medical Decision Narrative: In summary this is a 20-year-old G3, P2 female at 17 weeks by last menstrual period presenting to the emergency department with lower abdominal cramping and vaginal bleeding. Patient clinically stable on arrival. Concern for threatened miscarriage, completed miscarriage, urinary tract infection. Will obtain CBC, BMP, urinalysis, transvaginal ultrasound. Patient's blood type is A+, does not require RhoGam. Urinalysis shows signs of urinary tract infection. Patient given prescription for one-time dose of fosfomycin. She took Macrobid 6 weeks ago. Ultrasound shows intrauterine . Patient counseled to establish with an MENAGERIE CARETAKER in 24 to 48 hours. Given return precautions. Stable for discharge. General Adult HPI - General Chief complaint: Vaginal Bleeding Stated complaint: 17 weeks , lt side sharp pain Time Seen by Provider: 03/04/20 12:04
[2020-03-04 12:15] LABS: Appearance,Urine CLEAR (Clear); Bilirubin,Urine 1+ (Negative); Blood, Urine 3+ (Negative); Color,Urine YELLOW (Yellow); Glucose,Urine (UA) Negative (Negative); Ketones,Urine 3+ (Negative); Leukocyte Esterase,Urine 1+ (Negative); Nitrate,Urine Negative (Negative); Protein,Urine TRACE (Negative); Specific Gravity, Urine 1.025 (1.005-1.030); Urobilinogen,Urine 0.2 EU/dl (0.2)
[2020-03-04 12:23] LABS: Amorphous Sediment,Urine 2+ /lpf
[2020-03-04 12:24] LABS: Basophils % 0.2 % (0.1-2.0); Eosinophils # 0.1 K/mm3 (0.0-0.4); Eosinophils % 0.6 % (0.1-12.0); Hematocrit 34.4 % (37.0-47.0); Hemoglobin 11.1 g/dL (12.2-16.2); Lymphocytes % 17.5 % (10-50); Mean Corpuscular HGB Conc 32.3 g/dL (31.8-35.4); Mean Corpuscular Hemoglobin 28.3 pg (27.0-31.2); Mean Corpuscular Volume 87.5 fl (81-99); Monocytes # 0.4 K/mm3 (0.1-1.0); Monocytes % 3.3 % (1.7-9.3); Neutrophils % 78.4 % (37.0-80.0); Platelet Count 290 K/mm3 (142-424); Red Blood Count 3.93 M/mm3 (4.20-5.40); Red Cell Distribution Width 14.7 % (11.5-17.5); White Blood Count 11.5 K/mm3 (4.8-10.8)
--- NOTE | 2020-03-04 12:30 | PC.NURSE ---
PATIENT GONE TO US AT THIS TIME
[2020-03-04 12:53] LABS: Chloride 105 mmol/L (98-107); Sodium 137 mmol/L (136-145)
[2020-03-04 12:54] LABS: Potassium 3.5 mmoL/L (3.5-5.1)
[2020-03-04 12:56] LABS: Blood Urea Nitrogen 9 mg/dl (7-17); Creatinine Clearance Estimated 118 mL/min (50-200); Estimated Glomerular Filt Rate 106 ml/min (>60); GFR (African American) 128 ML/MIN (>60)
[2020-03-04 12:57] LABS: Anion Gap 14.5 mEq/L (5-15); Calcium 9.3 mg/dl (8.4-10.2); Carbon Dioxide 21 mmol/L (22.0-30.0); Glucose 75 mg/dl (74-100)
[2020-03-04 13:04] VITALS: BP 106/58; PULSE 82; RESP 16; O2SAT 98
[2020-03-04 13:40] LABS: HCG,Quantitative 46115 mIU/ml (0-5.42)
[2020-03-04 13:46] VITALS: BP 111/61; PULSE 77; O2SAT 100
[2020-03-04 14:25] VITALS: BP 108/60; PULSE 74; RESP 16; TEMP 36.7; O2SAT 100
== END 2020-03-04 14:27 | disposition home or self-care (01) ==
PROVIDERS: Emergency Provider Emergency Medicine; PCP Internal Medicine Adolescent Medicine
DX: O20.0 Threatened abortion (principal); O23.42 Unspecified infection of urinary tract in pregnancy, second trimester; F41.8 Other specified anxiety disorders; F17.210 Nicotine dependence, cigarettes, uncomplicated; Z88.1 Allergy status to other antibiotic agents
CPT/HCPCS: 76805; 80048; 81001; 84702; 85025; 87086; 87088; 87186; 99283

== ENCOUNTER → 2020-03-22 09:51 | Outpatient (CLI) | payer OTHER, SELFPAY ==
--- NOTE | 2020-03-22 09:59 | US_ITS ---
PROCEDURE: US OB /MATERNAL DETAIL CLINICAL INDICATION: 20 week gestation Anatomy exam COMPARISON: US US OB >= 14 WEEKS FETUS from 03/04/2020 FINDINGS: There is a single live fetus which is in breech presentation. heart body motion noted. The cervix is closed measuring 3.5 cm. The placenta is posterior in implantation and grade 1. There is a persistent area of decreased echogenicity along the anterior subchorionic aspect of the uterus measuring 6 x 1 by 5 cm hypoechoic in nature and may represent an area of previously noted subchorionic hemorrhage. Incidental note is made of a 3 cm left ovarian cyst. Complete survey performed and was unremarkable on the submitted images as in PACS. No discrete anomalies identified on survey imaging by technologist. Active fetus. Three-vessel cord with satisfactory umbilical cord insertion. 4- chamber heart noted. Survey of brain & ventricles Unremarkable. Face and neck survey unremarkable. Diaphragm and chest views unremarkable. Abdomen: Both kidneys noted and unremarkable. Stomach noted and satisfactory. Spine: Survey of the spine satisfactory with no anomalies identified nor imaged. Both arms and legs noted. Amniotic Fluid: Adequate. Maternal adnexa: No significant findings. Measurements: Average ultrasound age 19weeks 4days. Gestational Age 19weeks 1day Estimated due date by ultrasound age 0308/12/2020. Estimated weight 287g BPD = 19weeks 6days OFD = 19weeks 6days HC = 19weeks 1day AC = 19weeks 4days FL = 19weeks 2days Growth Percentile= 57Percent% Heart Rate = 156bpm Cerebellum = 19weeks 5days Humerus = 19weeks 1day HC/AC is 1.15 CI is 0.79 FL/BPD is 0.66 FL/AC is 0.21 IMPRESSION: Live IUP in breech presentation with an average ultrasound age of 19 weeks 4 days. No obvious anomalies are evident with all parameters correlating. There is a persistent hypoechoic subchorionic area of decreased echogenicity along the anterior aspect of the uterus and may be related to sequela from a prior subchorionic bleed. This is slightly more prominent compared to the previous exam. Dictated by: Yehuda Mcfadden MD 03/23/2020 12:10 Yehuda Mcfadden MD in OV 03/23/2020 12:10
== END ==
PROVIDERS: PCP Internal Medicine Adolescent Medicine; Visit Provider Nurse Practitioner Obstetrics & Gynecology
DX: Z34.90 Encounter for supervision of normal pregnancy, unspecified, unspecified trimester (principal); Z3A.20 20 weeks gestation of pregnancy
CPT/HCPCS: 76811

== ENCOUNTER 2020-04-07 19:49 | Emergency (ER) | payer OTHER, SELFPAY ==
[2020-04-07 20:02] VITALS: BP 116/63; PULSE 68; RESP 18; TEMP 36.8; O2SAT 99; BMI 24.1
--- NOTE | 2020-04-07 20:25 | HMH.EDUTC ---
[facility] [place] Clinical Impression: Strep throat Disposition: Home, Self-Care Condition on Discharge: Good Instructions: Strep Throat, DI for Strep Throat Additional Instructions: Drink plenty of fluids. Take tylenol or ibuprofen for pain or fever. Take the medications as directed. Follow up with your regular doctor. GO TO THE ER FOR ANY WORSENING SYMPTOMS Throw your tooth brush away and get a new one tomorrow. Prescriptions: Amoxicillin [Amoxicillin 500mg Tab] 500 mg PO TID 10 Days #30 tab Transmission Status: Pending to [facility] #[id number] Referrals: Rubens Guzmán MD [Primary Care Provider] - Forms: Work/School Release Time of Disposition: 20:29 Medical Decision Making - Medical Records Medical records reviewed: No: I reviewed the patient's medical records. - Jairo Inquiry Pt receiving controlled substance: No Vital Signs: 04/07/20 20:02 Temperature 98.2 F Temperature Source Oral Pulse Rate [Radial] 68 Respiratory Rate 18 Blood Pressure [Right Arm] 116/63 Blood Pressure Mean [Right Arm] 80 Blood Pressure Source [Right Arm] Automatic Cuff Blood Pressure Position [Right Arm] Sitting 02 Sat by Pulse Oximetry 99 Oxygen Delivery Method Room Air - Lab Data Lab results reviewed: Yes: I reviewed the patient's lab results. Lab Results 04/07/20 19:57: Strep Scn Rapid Clinic Negative Orders (Tests/Meds): ORDERS Category Date Time Status Strep Screen Confirmation Stat Micro 04/07/20 19:57 Received [facility] [place] - General Stated complaint: sore throat Time Seen by Provider: 04/07/20 20:25 Mode of Arrival: Ambulatory Source of Information: Patient Limitations: No Limitations Description of Symptoms (Recalled from Triage Doc. by RN): sore throat since last night. HEENT Symptoms (Recalled from RN notes): Yes Resp Symptoms (Recalled from RN notes): No Skin Symptoms (Recalled from RN notes): No MS Symptoms (Recalled from RN notes): No Functional Status (Recalled from RN notes): wnl - History of Present Illness Provider Complaint: She c/o sore throat that started yesterday. She states that she gets strep throat often and she has it now. - Related Data Home Medications Medication Instructions Recorded Confirmed prenat.vits,clifford,[id number] 1 tab PO DAILY 12/30/19 02/06/20 Previous Rx's Medication Instructions Recorded promethazine 12.5 mg tablet 12.5 mg PO Q4-6H PRN #30 tab 01/01/20 nitrofurantoin 100 mg PO BID 5 Days #10 cap 01/21/20 monohydrate/macrocrystals 100 mg capsule ondansetron HCl 4 mg tablet 4 mg PO Q6H PRN #30 tab 02/18/20 Fosfomycin Tromethamine [Monurol] 3 gm PO ONCE 1 Days #1 packet 03/04/20 Amoxicillin [Amoxicillin 500mg Tab] 500 mg PO TID 10 Days #30 tab 04/07/20 Allergies Allergy/AdvReac Type Severity Reaction Status Date / Time cephalexin [From KEFLEX] Allergy Intermediate I-RASH Verified 02/06/20 10:52 - Worker's Comp Is this a Worker's Comp case?: No [facility] History - Hepatitis A Screen Drug use history?: No High risk sexual behaviors?: No History of sexually transmitted infection?: No Currently employed?: No Childcare worker?: No Do you have indoor plumbing?: Yes Do you have electricity?: Yes Attestation statement:: This patient has been screened for Hepatitis A risk factors. I have reviewed the patient's past medical history: Yes Medical History: Reports:: Anxiety, Asthma, Depression, Migraine Denies:: Cancer, Diabetes Mellitus Type 1, Diabetes Mellitus Type 2, Internal Pacemaker, MRSA Other Medical History: Reports: Arthritis, Thyroid Disease Other Surgeries: Yes: No Previous Surgery, . No: Pacemaker Amputation: No Fractures: Yes (JAW) - Social History Smoking Status: Current every day smoker Tobacco Type: cigarettes # Packs/Day (cigarettes): 1 #Yrs smoked (if former smoker): 2 Alcohol Intake: never Alcohol Intake Frequency:: holidays/special occasions only Substance Use Type:
[2020-04-07 20:28] LABS: UTC Strep Screen (Rapid) Positive (Negative)
[2020-04-07 20:36] VITALS: BP 116/63; PULSE 68; RESP 18; TEMP 36.8; O2SAT 99
== END 2020-04-07 20:37 | disposition home or self-care (01) ==
PROVIDERS: Emergency Provider Nurse Practitioner Family; PCP Internal Medicine Adolescent Medicine
DX: J02.0 Streptococcal pharyngitis (principal); Z3A.20 20 weeks gestation of pregnancy; F41.8 Other specified anxiety disorders; Z79.899 Other long term (current) drug therapy; Z88.1 Allergy status to other antibiotic agents
CPT/HCPCS: 87880; 99201

== ENCOUNTER 2020-04-19 11:29 | Outpatient (CLI) | payer OTHER, SELFPAY ==
[2020-04-19 12:18] VITALS: BP 111/69; PULSE 82; RESP 20; TEMP 37.2; O2SAT 99; BMI 27.1
[2020-04-19 12:55] LABS: Microscopic, Urine URINE MICROSCOPIC (MICROSCOPIC)
[2020-04-19 12:57] LABS: Appearance,Urine CLEAR (Clear); Bilirubin,Urine Negative (Negative); Blood, Urine Negative (Negative); Color,Urine YELLOW (Yellow); Glucose,Urine (UA) Negative (Negative); Ketones,Urine Negative (Negative); Leukocyte Esterase,Urine 1+ (Negative); Nitrate,Urine Negative (Negative); Protein,Urine Negative (Negative); Urobilinogen,Urine 0.2 EU/dl (0.2)
[2020-04-19 13:08] LABS: Bacteria,Urine 1+ /lpf
[2020-04-19 13:09] LABS: Opiate Screen,Urine Negative ng/ml (<300); Phencyclidine Screen,Urine Negative ng/ml (<25)
[2020-04-19 13:11] LABS: Amphetamine/Metha Screen,Urine Negative ng/ml (<1000); Barbiturates Screen,Urine Negative ng/ml (<200)
[2020-04-19 13:12] LABS: Benzodiazepines Screen,Urine Negative ng/ml (<200)
[2020-04-19 13:15] LABS: Cannabinoid Screen,Urine Negative ng/ml (<50); Cocaine Screen,Urine Negative ng/ml (<300)
[2020-04-19 13:16] LABS: Methadone Screen,Urine Negative ng/ml (<300)
== END 2020-04-19 13:22 | disposition home or self-care (01) ==
LOC: OBOUT 11:31 → OB 11:31
PROVIDERS: PCP Internal Medicine Adolescent Medicine; Visit Provider Nurse Practitioner Obstetrics & Gynecology
DX: O26.892 Other specified pregnancy related conditions, second trimester (principal); Z3A.23 23 weeks gestation of pregnancy; M54.5 Low back pain
CPT/HCPCS: 59025; 80305; 81001; 87086; G0463

== ENCOUNTER 2020-05-04 13:17 | Emergency (ER) | payer OTHER, SELFPAY ==
[2020-05-04 13:26] VITALS: BP 122/56; PULSE 118; RESP 20; O2SAT 98; BMI 23.9
--- NOTE | 2020-05-04 13:41 | HMH.EDUTC ---
[facility] [place] Clinical Impression: Sore throat (viral) Disposition: Home, Self-Care Condition on Discharge: Good Instructions: Sore Throat Additional Instructions: *Monitor Temp, Over the counter Motrin or Tylenol as directed/as needed Tylenol every 4 hours and Motrin every 6 hours (as long as your family doctor has told you that you can take it) for fever or pain. and straight to ER if unable to lower temp less than 101.0 after medication given *Warm salt water gargles may help to soothe the throat *Throat Lozenges *Warm fluids like tea with honey may help to soothe the throat *Sleep elevated *Humidifier/Vaporizer Your throat swab was sent for culture. Those results are typically sent to your primary care. Be sure to follow up in 2-3 days with your family doctor/primary care physician if no improvement so they can review those result and treat if necessary. If you don?t have a primary care doctor, I recommend you get one but in the mean time, you will have to return to a walk in clinic Follow up IMMEDIATELY for new or worsening symptoms or no Noticeable improvement over the next 48-72 hours. 911 for difficulty breathing or swallowing Referrals: Rubens Guzmán MD [Primary Care Provider] - As needed Forms: Work/School Release Time of Disposition: 13:48 Medical Decision Making - Jairo Inquiry Pt receiving controlled substance: No Jairo was queried for this patient: No Vital Signs: 05/04/20 13:26 Pulse Rate [Radial] 118 H Respiratory Rate 20 Blood Pressure [Right Arm] 122/56 L Blood Pressure Mean [Right Arm] 78 Blood Pressure Source [Right Arm] Automatic Cuff Blood Pressure Position [Right Arm] Sitting 02 Sat by Pulse Oximetry 98 Oxygen Delivery Method Room Air - Lab Data Lab results reviewed: Yes: I reviewed the patient's lab results. [facility] [place] - General Stated complaint: Sore throat, leg cramps Time Seen by Provider: 05/04/20 13:41 Mode of Arrival: Ambulatory Source of Information: Patient Limitations: No Limitations Description of Symptoms (Recalled from Triage Doc. by RN): sore throat, leg cramps. Diagnosed with strep 2 weeks ago and states it has not gotten better. HEENT Symptoms (Recalled from RN notes): Yes Resp Symptoms (Recalled from RN notes): No Skin Symptoms (Recalled from RN notes): No MS Symptoms (Recalled from RN notes): No Functional Status (Recalled from RN notes): wnl - History of Present Illness Provider Complaint: Patient state that she was seen and treated a couple weeks ago for strep throat State that she has continued to have sore throat on and off and noticed white things in her tonsils States that she is and has been having some cramping like feeling on and off in her legs and she was worried that the medication didnt clear up the strep throat - Related Data Home Medications Medication Instructions Recorded Confirmed prenat.vits,clifford,[id number] 1 tab PO DAILY 12/30/19 02/06/20 Previous Rx's Medication Instructions Recorded promethazine 12.5 mg tablet 12.5 mg PO Q4-6H PRN #30 tab 01/01/20 nitrofurantoin 100 mg PO BID 5 Days #10 cap 01/21/20 monohydrate/macrocrystals 100 mg capsule ondansetron HCl 4 mg tablet 4 mg PO Q6H PRN #30 tab 02/18/20 Fosfomycin Tromethamine [Monurol] 3 gm PO ONCE 1 Days #1 packet 03/04/20 Amoxicillin [Amoxicillin 500mg Tab] 500 mg PO TID 10 Days #30 tab 04/07/20 Allergies Allergy/AdvReac Type Severity Reaction Status Date / Time cephalexin [From KEFLEX] Allergy Intermediate I-RASH Verified 02/06/20 10:52 - Worker's Comp Is this a Worker's Comp case?: No [facility] History - Hepatitis A Screen Drug use history?: No High risk sexual behaviors?: No History of sexually transmitted infection?: No Currently employed?: No Childcare worker?: No Do you have indoor plumbing?: Yes Do you have electricity?: Yes Attestation statement:: This patient has been screened for Hepatitis A risk factors. I have rev
[2020-05-04 14:01] VITALS: BP 122/87; PULSE 102; RESP 20; TEMP 36.7; O2SAT 99
[2020-05-04 20:16] LABS: UTC Strep Screen (Rapid) Negative (Negative)
== END 2020-05-04 14:01 | disposition home or self-care (01) ==
PROVIDERS: Emergency Provider Nurse Practitioner; PCP Internal Medicine Adolescent Medicine
DX: J02.9 Acute pharyngitis, unspecified (principal); J45.909 Unspecified asthma, uncomplicated; F41.8 Other specified anxiety disorders; F17.210 Nicotine dependence, cigarettes, uncomplicated
CPT/HCPCS: 87880; 99201

== ENCOUNTER → 2020-05-31 17:10 | Outpatient (CLI) | payer OTHER, SELFPAY ==
[2020-06-04 07:55] LABS: Neisseria gonorrhoeae, NAA Negative (Negative)
== END ==
PROVIDERS: Visit Provider Nurse Practitioner Obstetrics & Gynecology
DX: Z34.90 Encounter for supervision of normal pregnancy, unspecified, unspecified trimester (principal)
CPT/HCPCS: 87491; 87591

== ENCOUNTER → 2020-06-11 09:47 | Outpatient (CLI) | payer OTHER, SELFPAY ==
[2020-06-11 10:34] LABS: Basophils % 0.2 % (0.1-2.0); Eosinophils # 0.1 K/mm3 (0.0-0.4); Eosinophils % 0.9 % (0.1-12.0); Hematocrit 32.3 % (37.0-47.0); Hemoglobin 10.5 g/dL (12.2-16.2); Lymphocytes # 2.4 K/mm3 (0.7-4.5); Lymphocytes % 18.1 % (10-50); Mean Corpuscular HGB Conc 32.4 g/dL (31.8-35.4); Mean Corpuscular Hemoglobin 26.9 pg (27.0-31.2); Mean Corpuscular Volume 83.2 fl (81-99); Mean Platelet Volume 7.7 fl (7.4-10.4); Monocytes # 0.6 K/mm3 (0.1-1.0); Monocytes % 4.3 % (1.7-9.3); Neutrophils # 10.1 K/mm3 (1.8-7.8); Neutrophils % 76.5 % (37.0-80.0); Platelet Count 305 K/mm3 (142-424); Red Blood Count 3.88 M/mm3 (4.20-5.40); Red Cell Distribution Width 15.2 % (11.5-17.5); White Blood Count 13.2 K/mm3 (4.8-10.8)
[2020-06-11 11:11] LABS: Glucose,Fasting 84 mg/dl (74-100)
[2020-06-11 12:11] LABS: Glucose 1 Hour 100 mg/dL (74-100)
[2020-06-12 19:40] LABS: HIV Screen 4th Generation wRfx Non Reactive (Non Reactive); Hepatitis B Surface Antigen Negative (Negative); Hepatitis C Antibody <0.1 s/co ratio (0.0-0.9); Rapid Plasma Reagin Ab Titer Non Reactive (NonRea<1:1); Rubella Antibodies, IgG 3.01 index (Immune >0.99)
== END ==
PROVIDERS: Visit Provider Nurse Practitioner Obstetrics & Gynecology
DX: Z34.90 Encounter for supervision of normal pregnancy, unspecified, unspecified trimester (principal)
CPT/HCPCS: 36415; 82951; 85025; 86592; 86703; 86762; 86850; 87340; 87380; G0432

== ENCOUNTER 2020-06-13 15:15 | Emergency (ER) | payer OTHER, SELFPAY ==
[2020-06-13 15:36] VITALS: BP 112/63; PULSE 107; RESP 14; TEMP 36.6; O2SAT 97; BMI 26.2
--- NOTE | 2020-06-13 15:41 | HMH.EDUTC ---
[facility] [place] Clinical Impression: Pain, dental, Jaw pain, Dental abscess Disposition: Home, Self-Care Condition on Discharge: Good Instructions: Tooth Abscess Additional Instructions: You have to follow up with your dentist and your seaming inspector. You have to follow up with your gis application developer doctor. Call his office first thing in the morning to let him know what is going on with you. Take the antibiotics (amoxicillin) as directed. Take tylenol for pain, unless your gis application developer directs you to take something else. GO TO THE ER FOR ANY WORSENING SYMPTOMS OR CONCERNS Prescriptions: Amoxicillin [Amoxicillin 500mg Tab] 500 mg PO TID 10 Days #30 tab Transmission Status: Received by [facility] #[id number] Referrals: Rubens Guzmán MD [Primary Care Provider] - Time of Disposition: 16:03 Medical Decision Making - Medical Records Medical records reviewed: No: I reviewed the patient's medical records. - Jairo Inquiry Pt receiving controlled substance: No Vital Signs: 06/13/20 15:36 Temperature 97.8 F Temperature Source Oral Pulse Rate [Right Brachial] 107 H Respiratory Rate 14 Blood Pressure [Right Arm] 112/63 Blood Pressure Mean [Right Arm] 79 Blood Pressure Source [Right Arm] Automatic Cuff Blood Pressure Position [Right Arm] Sitting 02 Sat by Pulse Oximetry 97 Oxygen Delivery Method Room Air [facility] [place] HPI - General Stated complaint: dental pain Time Seen by Provider: 06/13/20 15:41 - History of Present Illness Provider Complaint: She states that she had the wires on her braces adjusted yesterday. Since then she has had dental pain. She rates her pain as an 8/10 at this time. She states that she was told at her seaming inspector yesterday that she had some infection in her gums but no antibiotics were prescribed. There is one area around her top left lateral incisor tooth that the pain is worse at. - Related Data Home Medications Medication Instructions Recorded Confirmed prenat.vits,clifford,[id number] 1 tab PO DAILY 12/30/19 05/31/20 Previous Rx's Medication Instructions Recorded promethazine 12.5 mg tablet 12.5 mg PO Q4-6H PRN #30 tab 01/01/20 ondansetron HCl 4 mg tablet 4 mg PO Q6H PRN #30 tab 05/31/20 docusate sodium 100 mg capsule 100 mg PO DAILY #30 cap 06/04/20 famotidine 20 mg tablet 20 mg PO DAILY #30 tab 06/07/20 Amoxicillin [Amoxicillin 500mg Tab] 500 mg PO TID 10 Days #30 tab 06/13/20 Allergies Allergy/AdvReac Type Severity Reaction Status Date / Time cephalexin [From KEFLEX] Allergy Intermediate I-RASH Verified 05/31/20 14:07 [facility] History - Hepatitis A Screen Attestation statement:: This patient has been screened for Hepatitis A risk factors. I have reviewed the patient's past medical history: Yes Medical History: Reports:: Anxiety, Asthma, Depression, Migraine Denies:: Cancer, Diabetes Mellitus Type 1, Diabetes Mellitus Type 2, Internal Pacemaker, MRSA Other Medical History: Reports: Arthritis, Thyroid Disease Other Surgeries: Yes: No Previous Surgery, . No: Pacemaker Amputation: No Fractures: Yes (JAW) - Social History Smoking Status: Current every day smoker Tobacco Type: cigarettes # Packs/Day (cigarettes): 1 #Yrs smoked (if former smoker): 2 Alcohol Intake: never Alcohol Intake Frequency:: holidays/special occasions only Substance Use Type: denies use Occupational Status: other Housing: house Household Members: spouse, family - Psychiatric History Pschychiatric History:: Reports:: Anxiety, Depression Family Hx:: Diabetes, Hypertension, Cancer ROS Obtained: Yes All systems reviewed & no additional complaints - Constitutional Constitutional: Reports system reviewed and no additional complaints, except as docu, Denies chills, Denies fever(s) - Eyes Eyes: Denies eye discharge - ENT Ears, Nose, Mouth, and Throat: Reports as per HPI - Cardiovascular Cardiovascular: Denies chest pain - Respiratory Respiratory: Denies chest
[2020-06-13 15:58] VITALS: BP 112/63; PULSE 107; RESP 14; TEMP 36.6; O2SAT 97
== END 2020-06-13 16:00 | disposition home or self-care (01) ==
PROVIDERS: Emergency Provider Nurse Practitioner Family; PCP Internal Medicine Adolescent Medicine
DX: K04.7 Periapical abscess without sinus (principal); Z3A.31 31 weeks gestation of pregnancy; F41.8 Other specified anxiety disorders; J45.909 Unspecified asthma, uncomplicated; F17.210 Nicotine dependence, cigarettes, uncomplicated
CPT/HCPCS: 99202; G0463

== ENCOUNTER 2020-07-04 00:52 | Outpatient (CLI) | payer OTHER, SELFPAY ==
[2020-07-04 01:26] VITALS: BMI 28.1
[2020-07-04 01:32] VITALS: BP 111/60; PULSE 96; RESP 18; TEMP 37.1; O2SAT 97; BMI 28.1
[2020-07-04 01:39] LABS: Microscopic, Urine URINE MICROSCOPIC (MICROSCOPIC)
[2020-07-04 01:42] LABS: Fetal Membrane Rupture (Rapid) Negative (Negative)
[2020-07-04 01:54] LABS: Barbiturates Screen,Urine Negative ng/ml (<200); Benzodiazepines Screen,Urine Negative ng/ml (<200)
[2020-07-04 01:55] LABS: Amphetamine/Metha Screen,Urine Negative ng/ml (<1000); Methadone Screen,Urine Negative ng/ml (<300)
[2020-07-04 01:56] LABS: Appearance,Urine CLOUDY (Clear); Bilirubin,Urine Negative (Negative); Blood, Urine Negative (Negative); Cannabinoid Screen,Urine Negative ng/ml (<50); Color,Urine YELLOW (Yellow); Glucose,Urine (UA) Negative (Negative); Ketones,Urine Negative (Negative); Leukocyte Esterase,Urine 2+ (Negative); Nitrate,Urine Negative (Negative); PH,Urine 7.5 (5.0-8.5); Protein,Urine Negative (Negative); Urobilinogen,Urine 0.2 EU/dl (0.2)
[2020-07-04 01:57] LABS: Cocaine Screen,Urine Negative ng/ml (<300); Opiate Screen,Urine Negative ng/ml (<300)
[2020-07-04 01:58] LABS: Phencyclidine Screen,Urine Negative ng/ml (<25)
[2020-07-04 02:03] LABS: Squamous Epithelial Cell,Urine 20-50 #/hpf (0-5)
== END 2020-07-04 02:20 | disposition home or self-care (01) ==
LOC: OBOUT 00:53 → OB 00:54
PROVIDERS: PCP Internal Medicine Adolescent Medicine; Referring Provider Nurse Practitioner Obstetrics & Gynecology; Visit Provider Obstetrics & Gynecology
DX: O26.892 Other specified pregnancy related conditions, second trimester (principal); Z3A.24 24 weeks gestation of pregnancy
CPT/HCPCS: 59025; 80305; 81001; 84112; 87086; G0463

== ENCOUNTER → 2020-07-19 16:58 | Outpatient (CLI) | payer OTHER, SELFPAY | PROVIDERS: Visit Provider Nurse Practitioner Obstetrics & Gynecology | DX: Z34.90 Encounter for supervision of normal pregnancy, unspecified, unspecified trimester (principal) | CPT/HCPCS: 86403 ==

== ENCOUNTER 2020-08-06 20:11 | Outpatient (CLI) | payer OTHER, SELFPAY ==
[2020-08-06 20:25] VITALS: BMI 29.7
[2020-08-06 20:48] VITALS: BP 130/76; PULSE 114; RESP 18; TEMP 37; O2SAT 98; BMI 29.7
[2020-08-06 20:50] LABS: Microscopic, Urine URINE MICROSCOPIC (MICROSCOPIC)
[2020-08-06 20:52] LABS: Appearance,Urine CLOUDY (Clear); Bilirubin,Urine Negative (Negative); Blood, Urine Negative (Negative); Color,Urine YELLOW (Yellow); Glucose,Urine (UA) Negative (Negative); Ketones,Urine Negative (Negative); Leukocyte Esterase,Urine 2+ (Negative); Nitrate,Urine Negative (Negative); PH,Urine 6.5 (5.0-8.5); Protein,Urine Negative (Negative); Urobilinogen,Urine 0.2 EU/dl (0.2)
[2020-08-06 21:01] LABS: Amorphous Sediment,Urine 3+ /lpf; Squamous Epithelial Cell,Urine 20-50 #/hpf (0-5)
[2020-08-06 21:04] LABS: Amphetamine/Metha Screen,Urine Negative ng/ml (<1000)
[2020-08-06 21:05] LABS: Barbiturates Screen,Urine Negative ng/ml (<200); Benzodiazepines Screen,Urine Negative ng/ml (<200)
[2020-08-06 21:06] LABS: Cannabinoid Screen,Urine Negative ng/ml (<50)
[2020-08-06 21:07] LABS: Cocaine Screen,Urine Negative ng/ml (<300); Methadone Screen,Urine Negative ng/ml (<300)
[2020-08-06 21:08] LABS: Opiate Screen,Urine Negative ng/ml (<300)
[2020-08-06 21:09] LABS: Phencyclidine Screen,Urine Negative ng/ml (<25)
== END 2020-08-06 21:45 | disposition home or self-care (01) ==
LOC: OBOUT 20:13 → OB 20:14
PROVIDERS: PCP Internal Medicine Adolescent Medicine; Visit Provider Nurse Practitioner Obstetrics & Gynecology
DX: O60.03 Preterm labor without delivery, third trimester (principal); Z3A.38 38 weeks gestation of pregnancy
CPT/HCPCS: 59025; 80305; 81001; 87086; G0463

== ENCOUNTER → 2020-08-07 10:53 | Outpatient (CLI) | payer OTHER, SELFPAY ==
[2020-08-07 11:26] LABS: Anion Gap 11.2 mEq/L (5-15); Blood Urea Nitrogen 5 mg/dl (7-17); Calcium 9.7 mg/dl (8.4-10.2); Carbon Dioxide 21 mmol/L (22.0-30.0); Chloride 107 mmol/L (98-107); Estimated Glomerular Filt Rate 126 ml/min (>60); GFR (African American) 153 ML/MIN (>60); Glucose 89 mg/dl (74-100); Potassium 4.2 mmoL/L (3.5-5.1); Sodium 135 mmol/L (136-145)
[2020-08-07 12:20] LABS: Basophils % 0.2 % (0.1-2.0); Eosinophils # 0.1 K/mm3 (0.0-0.4); Eosinophils % 0.8 % (0.1-12.0); Hematocrit 39.1 % (37.0-47.0); Hemoglobin 11.9 g/dL (12.2-16.2); Lymphocytes # 2.1 K/mm3 (0.7-4.5); Lymphocytes % 19.4 % (10-50); Mean Corpuscular HGB Conc 30.4 g/dL (31.8-35.4); Mean Corpuscular Hemoglobin 27.2 pg (27.0-31.2); Mean Corpuscular Volume 89.7 fl (81-99); Mean Platelet Volume 8.4 fl (7.4-10.4); Monocytes # 0.6 K/mm3 (0.1-1.0); Monocytes % 5.8 % (1.7-9.3); Neutrophils # 8.2 K/mm3 (1.8-7.8); Neutrophils % 73.8 % (37.0-80.0); Platelet Count 273 K/mm3 (142-424); Red Blood Count 4.35 M/mm3 (4.20-5.40); Red Cell Distribution Width 19.2 % (11.5-17.5); White Blood Count 11.1 K/mm3 (4.8-10.8)
== END ==
PROVIDERS: PCP Internal Medicine Adolescent Medicine; Visit Provider Nurse Practitioner Obstetrics & Gynecology
DX: Z01.818 Encounter for other preprocedural examination (principal); Z34.90 Encounter for supervision of normal pregnancy, unspecified, unspecified trimester
CPT/HCPCS: 36415; 80048; 85025; U0003

== ENCOUNTER 2020-08-09 06:34 | Inpatient (IN) | payer OTHER, SELFPAY ==
--- NOTE | 2020-08-04 11:46 | SUR.PREOP ---
1146- 08/04/20- left detailed msg to come in for COVID PCR swab on 08/07 or 08/08. To call if have any questions
[2020-08-09] VITALS (10 sets, daily range): BP systolic 89–124; BP diastolic 44–94; PULSE 71–109; RESP 12–22; TEMP 36.3–36.9; O2SAT 98–100; BMI 29.1
--- NOTE | 2020-08-09 07:36 | HMH.PHAINT ---
MEDICATION RECONCILIATION COMPLETED ON PATIENT USING EXTERNAL FILL HISTORY FROM PHARMACY AND LIST FROM MD OFFICE. -DODIE PATRICKD
[2020-08-09 07:53] LABS: Microscopic, Urine URINE MICROSCOPIC (MICROSCOPIC)
[2020-08-09 07:56] LABS: Appearance,Urine CLEAR (Clear); Bilirubin,Urine Negative (Negative); Blood, Urine Negative (Negative); Color,Urine YELLOW (Yellow); Glucose,Urine (UA) Negative (Negative); Ketones,Urine Negative (Negative); Leukocyte Esterase,Urine 1+ (Negative); Nitrate,Urine Negative (Negative); Protein,Urine Negative (Negative); Specific Gravity, Urine 1.015 (1.005-1.030); Urobilinogen,Urine 0.2 EU/dl (0.2)
[2020-08-09 08:07] LABS: Bacteria,Urine Trace /lpf; RBC,Urine Occasional #/hpf (0-3)
[2020-08-09 08:14] LABS: Amphetamine/Metha Screen,Urine Negative ng/ml (<1000); Barbiturates Screen,Urine Negative ng/ml (<200)
[2020-08-09 08:15] LABS: Benzodiazepines Screen,Urine Negative ng/ml (<200); Cannabinoid Screen,Urine Negative ng/ml (<50)
[2020-08-09 08:16] LABS: Cocaine Screen,Urine Negative ng/ml (<300)
[2020-08-09 08:17] LABS: Methadone Screen,Urine Negative ng/ml (<300); Opiate Screen,Urine Negative ng/ml (<300)
[2020-08-09 08:18] LABS: Phencyclidine Screen,Urine Negative ng/ml (<25)
--- NOTE | 2020-08-09 09:35 | HMH.OBAPHP ---
OB - H&P: HPI Antepartum - History of Present Illness Chief complaint: Term , previous section, desire for sterilization History of present illness: She is a 20-year-old 3 para 2 at 39 weeks gestational age. She had 2 previous sections and as result of that offered repeat lower segment transverse section at term. She also expressed desire for sterilization. - History of Present Criteria for establishing EDC:: LMP confirmed by 1st trimester US care: good care Ultrasounds: normal 1st trimester US, normal mid trimester US Obstetrical complications: none, previous Medical complications: none - Labs Blood type: A (+) positive Rubella: immune RPR/VDRL: nonreactive GBS status: negative HBsAG: negative [facility] History I have reviewed the patient's past medical history: Yes Medical History: Reports:: Anxiety, Asthma, Depression, Migraine Denies:: Cancer, Diabetes Mellitus Type 1, Diabetes Mellitus Type 2, Internal Pacemaker, MRSA *Have you ever received a pneumonia vaccine?: No *Have you received a flu vaccine this season?: No Other Medical History: Reports: Arthritis, Thyroid Disease Other Surgeries: Yes: No Previous Surgery, . No: Pacemaker Amputation: No Fractures: Yes (JAW) - *Social History Smoking Status: Current every day smoker Tobacco Type: cigarettes # Packs/Day (cigarettes): 1 #Yrs smoked (if former smoker): 2 Alcohol Intake: never Alcohol Intake Frequency:: holidays/special occasions only Substance Use Type: denies use *Occupational Status:: unemployed Housing: house Household Members: spouse, family *Travel in the last 8 weeks: None - Psychiatric History Pschychiatric History:: Reports:: Anxiety, Depression Family Hx:: Diabetes, Hypertension, Cancer Para: 2 Review of Systems - Review of Systems Review of systems:: pertinent systems reviewed and negative unless documented below Meds Home Medications Medication Instructions Recorded Confirmed Type prenat.vits,clifford,[id number] 1 tab PO DAILY 12/30/19 08/09/20 History Docusate Sodium 100 mg PO DAILY 08/09/20 08/09/20 History Famotidine [Acid Train Electronic Technician] 20 mg PO DAILY 08/09/20 08/09/20 History Ferrous Sulfate 325 mg PO DAILY 08/09/20 08/09/20 History Sertraline HCl [Zoloft] 50 mg PO DAILY 08/09/20 08/09/20 History ondansetron HCL [Zofran 4mg Tab*] 4 mg PO Q6HP PRN 08/09/20 08/09/20 History Allergies Allergy/AdvReac Type Severity Reaction Status Date / Time cephalexin [From KEFLEX] Allergy Intermediate I-RASH Verified 08/03/20 14:42 OB - H&P: Exam - Physical Exam Vital signs: Temp Pulse Resp BP Pulse Ox 98.5 F 94 H 18 118/68 99 08/09/20 07:17 08/09/20 07:17 08/09/20 07:17 08/09/20 07:17 08/09/20 07:17 - Constitutional no acute distress - Routine HEENT Exam Head: Present: normocephalic Eye: Present: EOMI, PERRL ENT: Present: mucous membranes moist - Routine Neck Exam Present: supple, full ROM - Routine Respiratory Exam Absent: accessory muscle use (good air entry bilaterally), respiratory distress, wheezes, crackles - Routine Cardiovascular Exam Present: RRR. Absent: murmur - Routine Abdominal Exam Present: soft, normoactive bowel sounds. Absent: tenderness, distended, guarding - Routine Rectal Exam Patient deferred: visual exam, digital exam - Routine Exam Patient deferred: external exam, groin exam, perineal exam - Routine Extremities Exam Present: full ROM. Absent: cyanosis, edema - Routine Skin Exam Present: intact. Absent: cyanosis - Routine Neurological Exam Present: alert, oriented X3 - Routine Psychiatric Exam Present: normal affect OB - Results - Labs Labs: Urine 08/09/20 Range/Units 06:50 Urine Color Yellow (Yellow) Urine Appearance Clear (Clear) Urine pH 6.0 (5.0-8.5) Ur Specific [place] 1.015 (1.005-1.030) Urine Protein Negative (Negative) Urine Glu
--- NOTE | 2020-08-09 10:57 | HMH.ANESCL ---
[facility] Anesthesia Checklist - Patient Identification Patient Identification: Arm Band - Structural Data Admitted From: Home Planned Operative Procedure/s: C/S with salpingectomy Consent for Planned Operative Procedure(s) Verified: Yes - Additional verifications Anesthesia Reactions: No - Airway Assessment C-Spine Mobility Assessed: Yes TMJ Mobility Assessed: Yes Dentition: Good Dentition - Neurological Assessment Level of Consciousness: Awake Hx Seizures: No Numbness or tingling in extremities: No - Anesthesia Plan Anesthesia Risk discussed: Yes Anesthesia Plan: Verified ASA Class: II Anesthesia Type: Spinal [facility] History I have reviewed the patient's past medical history: Yes Medical History: Reports:: Anxiety, Asthma, Depression, Migraine Denies:: Cancer, Diabetes Mellitus Type 1, Diabetes Mellitus Type 2, Internal Pacemaker, MRSA *Have you ever received a pneumonia vaccine?: No *Have you received a flu vaccine this season?: No Other Medical History: Reports: Arthritis, Thyroid Disease Anesthesia experience/problems:: Panic attack Other Surgeries: Yes: No Previous Surgery, . No: Pacemaker Amputation: No Fractures: Yes (JAW) - *Social History Smoking Status: Current every day smoker Tobacco Type: cigarettes # Packs/Day (cigarettes): 1 #Yrs smoked (if former smoker): 2 Alcohol Intake: never Alcohol Intake Frequency:: holidays/special occasions only Substance Use Type: denies use *Occupational Status:: unemployed Housing: house Household Members: spouse, family *Travel in the last 8 weeks: None - Psychiatric History Pschychiatric History:: Reports:: Anxiety, Depression Family Hx:: Diabetes, Hypertension, Cancer Para: 2
[2020-08-09 11:30] LABS: Cord Blood PH 7.34 (7.35-7.45)
--- NOTE | 2020-08-09 12:03 | HMH.OPNOTE ---
Date of procedure: 08/09/20 Pre-op Diagnosis:: Term , previous section, desire for sterilization Post-op Diagnosis:: Term , previous section, desire for sterilization, left mucinous ovarian cyst Procedure performed:: Repeat lower segment transverse section, bilateral salpingectomy, left ovarian cystectomy Surgeon:: Zain Brar MD Inspector Outside Production(s):: Ngozi Abreu [place] [employer] AUDITOR:: Dewayne Patterson Anesthesia: spinal Estimated blood loss (mL): 600 Clinical Note:: She is a 20-year-old 3 para 2 at 39+ weeks gestational age. She has had 2 previous sections and as result of that was offered repeat lower segment transverse section at term. She also expressed desire for sterilization. The risks and benefits of surgery as well as the irreversibility of bilateral salpingectomy were discussed with patient prior to surgery. Operative findings:: She delivered a liveborn male child at 11:15 AM on the morning of August 09, 2020. The baby had Apgars of 9 at 1 minute and 9 at 5 minutes. Right ovary appeared normal. Tubes appeared normal. She had a 10 cm left mucinous ovarian cyst on the left side. Also at the time of her surgery the lower uterine segment was just a very thin window of amnion and some scar tissue. Operative note:: She was taken to the operating room where spinal anesthesia was found be adequate. She was prepped and draped in normal sterile fashion in the supine position with a leftward tilt. A Covington catheter was in the bladder. A Pfannenstiel skin incision was made with knife then carried through to the underlying layer of fascia with cautery. The fascia was opened in the midline with cautery and extended laterally using Solis scissors. Oaks clamps were applied to the superior aspect of the fascial incision which was tented up and the underlying rectus muscles dissected off using cautery. The Holly clamps were then applied to the inferior aspect of the fascial incision which in a similar fashion was tented up and the underlying rectus muscles dissected off using cautery. The rectus muscles were then in the midline, the peritoneum identified, and entered sharply with Metzenbaum scissors. This incision was then extended superiorly and inferiorly with cautery. We had good visualization of the bladder inferiorly. The bladder peritoneum was then opened in the midline and extended laterally using Metzenbaum scissors. A bladder flap was created digitally. Transverse incision was made through the uterine muscle to the amnion. This incision was then extended laterally using fingers traction. The amnion was entered sharply with knife. There was clear amniotic fluid. The infant's head was then delivered atraumatically. This was followed by the anterior shoulder and the rest of the infant's body atraumatically. The oropharynx and nasopharynx were bulb suctioned. The infant was vigorous so we allowed the cord to continue to pulsate for approximately 1 minute. The was then handed off to Dr. Loera who assigned Apgars of 9 at 1 minute and 9 at 5 minutes. We then obtained cord blood as well as cord pH. Using gentle traction on the cord and countertraction on the fundus I was able to easily deliver the placenta intact. It had a normal three-vessel cord. The uterus was then cleared of clots and debris . The uterus was then exteriorized from the abdominal cavity. The uterine incision was then closed using running 0 Vicryl suture in a locked fashion. A second layer of the same suture was used to imbricate the first layer. The bladder peritoneum was then closed using running 2-0 Vicryl suture in a locked fashion. The gutters and cul-de-sac were then cleared of clots and debris . Once again hemostasis was assured. We then performed a bilateral salpingectomy. There was some distal adhesions on both ovaries and these were taken down with cautery prior to performing her bilateral salpin
--- NOTE | 2020-08-09 12:17 | P.PN_ITS ---
[facility] Anesthesia Record Part I Intake, IV Amount: 1,500 Estimated blood loss (mL): 200 Urine output (mL): 250 Blood Pressure: 115/64 SaO2: 100 Pulse Rate: 109 Respiratory Rate: 12 Temperature: 97.5 F Patient is:: Awake, Stable Stable to PACU at:: 12:00
--- NOTE | 2020-08-09 12:40 | SUR.PHASEI ---
REPORT GIVEN TO Torsten FLORES RN.
--- NOTE | 2020-08-09 12:50 | SUR.PHASEI ---
PT TAKEN TO ROOM 276 VIA STRETCHER AT THIS TIME.
--- NOTE | 2020-08-09 15:03 | SW/DCPLANNER ---
Addendum entered by Kristie Burnham 08/10/20 09:30: CALLED THIS MORNING TO SEE IF THE REFERRAL I CALLED INTO [facility]TAKE MET CRITERIA FOR INVESTIGATION AND IT WAS NOT ACCEPTED. REPEAT PHOTOCOMPOSING MACHINE OPERATOR STATED PATIENT HAS DONE ALL SHE NEEDS TO DO AND IS WORKING TO GET HER OTHER CHILDREN BACK THAT ARE CURRENTLY IN FOSTER CARE, THEIR AGES ARE ONE AND TWO.. SHE STATED SHE HAS EVERYTHING SHE NEEDS TO CARE FOR HER ... HER SALES PROMOTER IS AWARE SHE HAS DELIVERED AND WILL BE FOLLOWING HER.. CARSEAT IN THE CAR, GETS WIC, HAS FOODSTAMPS AND PLANS TO BOTTLE FEED, GOING TO USE DR WELLINGTON THE INFANTS BRUSH OPERATOR.....D/C ON PENDING NO BACKSETS... Original Note: RECEIVED REFERRAL FOR THIS PATIENT WHO PRESENTED INTO THE HOSPITAL FOR A ... PATIENT DELIVERED A LIVE BORN MALE, REFERRAL WAS GENERATED R/T NOT HAVING HER OTHER 2 CHILDREN... PATIENT EXPRESSED THIS WHEN SHE WAS DOING HER ADMISSION.. SHE HAS AN OPEN CASE WITH SUPERVISOR REINFORCED STEEL PLACING AND I CALLED AND MADE A REPORT... AN ID# WAS GIVE [id number]...WILL FOLLOW UP WITH THE ID# IN THE AM AND SEE PATIENT..PATIENT WILL BE HERE FOR A FEW MORE DAYS R/T ..
[2020-08-09 15:58] LABS: Microscopic,Cath URINE MICROSCOPIC (MICROSCOPIC)
--- NOTE | 2020-08-09 16:08 | P.CONPHA_ITS ---
[facility] Pharmacy VTE Monitoring - Patient Demographics Admission date: 08/09/20 Report Date: 08/09/20 Time: 16:08 Allergies/Adverse Reactions: Patient Allergies cephalexin [From KEFLEX] Allergy (Intermediate, Verified 08/03/20 14:42) I-RASH Height: 1.65 m Weight: 79.379 kg Patient Problems: Current Active Problems Previous section complicating (Acute) Admission for sterilization (Acute) - Prophylaxis VTE Prophylaxis Ordered?: Yes Types of VTE Prophylaxis: IPCS Thigh High Location of Applied Device: Bilateral Lower Extremeties
[2020-08-09 17:04] LABS: Appearance,Urine/Cath CLEAR (Clear); Bilirubin,Cath Negative (Negative); Blood, Urine/Cath Negative (Negative); Color,Urine/Cath YELLOW (Yellow); Glucose,Urine/Cath (UA) Negative (Negative); Ketones,Urine/Cath Negative (Negative); Leukocyte Esterase,Cath Negative (Negative); Nitrate,Cath Negative (Negative); Protein,Urine/Cath Negative (Negative); Specific Gravity, Urine/Cath 1.015 (1.005-1.030); Urobilinogen,Cath 0.2 EU/dl (0.2)
[2020-08-09 17:14] LABS: Bacteria,Urine/Cath 1+ /lpf
[2020-08-10 00:46] VITALS: BP 133/75; PULSE 90; RESP 20; TEMP 36.9; O2SAT 99
[2020-08-10 03:30] VITALS: BP 110/58; PULSE 85; RESP 18; TEMP 37; O2SAT 99
[2020-08-10 07:44] LABS: Hematocrit 34.3 % (37.0-47.0); Hemoglobin 10.9 g/dL (12.2-16.2)
[2020-08-10 08:00] VITALS: BP 114/59; PULSE 78; RESP 18; TEMP 37; O2SAT 98
--- NOTE | 2020-08-10 08:42 | HMH.ACPN2 ---
Internal Medicine - PN: Subj *Date: 08/10/20 *Time: 08:42 Interval history: She is doing very well this morning. She is eating and drinking and ambulating. Her pain is well controlled. Exam Vital signs and Labs for Last 24 Hours: Temp Pulse Resp BP Pulse Ox 98.6 F 85 18 110/58 L 99 08/10/20 03:30 08/10/20 03:30 08/10/20 03:30 08/10/20 03:30 08/10/20 03:30 Laboratory Results - last 24 hr 08/09/20 11:05: Urine Color Yellow, Urine Appearance Clear, Urine pH 7.0, Ur Specific [place] 1.015, Urine Protein Negative, Urine Glucose (UA) Negative, Urine Ketones Negative, Urine Blood Negative, Urine Nitrate Negative, Urine Bilirubin Negative, Urine Urobilinogen 0.2, Ur Leukocyte Esterase Negative, Urine RBC None, Urine WBC 3-5, Ur Squamous Epith Cells 5-10, Urine Bacteria 1+ 08/09/20 11:22: Cord ABG pH 7.34 L 08/10/20 06:39: Hgb 10.9 L, Hct 34.3 L I & O for Last 24 hours: Intake & Output 08/07/20 08/08/20 08/09/20 08/10/20 10:59 11:59 11:59 11:59 Intake Total 1500 / 1500 Output Total 425 / 425 Balance 1075 / 1075 Weight 175 lb Microbiology Reports for the Last 24 Hours: Microbiology 08/09/20 06:50 Urine,Clean Catch Urine Culture - Preliminary NO GROWTH AFTER 24 HOURS - Constitutional no acute distress - *Routine HEENT Exam Head: Present: normocephalic Eye: Present: EOMI, PERRL ENT: Present: mucous membranes moist Assessment and Plan (1) Previous section complicating Status: Acute Category: Surgical Code(s): O34.219 - Maternal care for unspecified type scar from previous delivery (2) Admission for sterilization Status: Acute Category: Medical Code(s): Z30.2 - Encounter for sterilization - Assessment and plan all Dx Assessment and Plan for all problems:: She is 1 day post from a section and bilateral salpingectomy. She is doing very well. We will plan to send her home in 48 hours.
--- NOTE | 2020-08-10 10:50 | HMH.ANESII ---
[facility] Anesthesia Record Part II Discharge Time: 12:40 Destination: Obstetric PACU nurse assessment reviewed?: Yes Patient Condition:: Good Anesthesia Complications:: None Swallowing reflex intact?: Yes Cyanosis?: No Blood Pressure: 122/70 Pulse Rate: 78 Temperature: 97.4 F Mental Status: Alert & Oriented Pain level:: 0 Nausea and/or vomitting:: None Intake, IV Amount: 0
[2020-08-10 10:51] VITALS: BP 122/70; PULSE 78; TEMP 36.3
[2020-08-10 12:05] VITALS: BP 104/58; PULSE 82; RESP 18; TEMP 36.7; O2SAT 98
[2020-08-10 19:47] VITALS: BP 109/65; PULSE 83; RESP 18; TEMP 36.8; O2SAT 100
[2020-08-11 03:06] VITALS: BP 112/55; PULSE 83; RESP 18; TEMP 36.6; O2SAT 98
--- NOTE | 2020-08-11 15:17 | HMH.ACPN2 ---
Internal Medicine - PN: Subj *Date: 08/11/20 *Time: 15:17 Interval history: She is doing well today. She is eating and drinking and ambulating. She is bottlefeeding. Her pain is well controlled. Exam Vital signs and Labs for Last 24 Hours: Temp Pulse Resp BP Pulse Ox 97.9 F 83 18 112/55 L 98 08/11/20 03:06 08/11/20 03:06 08/11/20 03:06 08/11/20 03:06 08/11/20 03:06 I & O for Last 24 hours: Intake & Output 08/09/20 08/10/20 08/11/20 08/12/20 11:59 11:59 11:59 11:59 Intake Total 1500 / 1500 Output Total 425 / 425 Balance 1075 / 1075 Weight 175 lb Microbiology Reports for the Last 24 Hours: Microbiology 08/09/20 06:50 Urine,Clean Catch Urine Culture - Final NO GROWTH AFTER 48 HOURS - Constitutional no acute distress - *Routine HEENT Exam Head: Present: normocephalic Eye: Present: EOMI, PERRL ENT: Present: mucous membranes moist Assessment and Plan (1) Previous section complicating Status: Acute Category: Surgical Code(s): O34.219 - Maternal care for unspecified type scar from previous delivery (2) Admission for sterilization Status: Acute Category: Medical Code(s): Z30.2 - Encounter for sterilization - Assessment and plan all Dx Assessment and Plan for all problems:: She is doing well today. We will plan to send her home tomorrow. She is 2 days post .
[2020-08-11 21:09] VITALS: BP 119/70; PULSE 88; RESP 17; TEMP 36.9; O2SAT 97
[2020-08-12 04:12] VITALS: BP 112/53; PULSE 87; RESP 16; TEMP 36.8; O2SAT 96
[2020-08-12 08:00] VITALS: BP 119/60; PULSE 85; RESP 20; TEMP 36.9; O2SAT 100
--- NOTE | 2020-08-12 10:34 | HMH.OBDCSM ---
General - General Admission date:: 08/09/20 Discharge date: 08/12/20 HPI - History of Present Illness History of present illness: She is a 20-year-old 3 now para 3 who was 39 weeks gestational age. She said 2 previous sections and as result of that was offered repeat lower segment transverse section at term. She also expressed desire for sterilization. Hospital Course Hospital Course: She underwent a repeat lower segment transverse section and delivered a liveborn male child at 11:15 AM on the morning of August 09, 2020. The baby weighed 8 pounds 6 ounces and had Apgars of 9 at 1 minute and 9 at 5 minutes. She has done well and has remained afebrile that her hospitalization. She is eating and drinking and ambulating. She is bottlefeeding. She has a positive blood, she is rubella immune and was group B streptococcus negative. Her metal slitter is Dr. Loera. She will be discharged home to follow-up with me in approximately 2 weeks time. She will continue with her vitamins and iron. She was given these instructions with respect to limiting her activity, driving and sexual activity. We gave her a prescription for Percocet 5/325 number 20 tablets. Her condition on discharge is stable and improved. Rhogam Administration: Not Indicated Objective Vital signs: Temp Pulse Resp BP Pulse Ox 98.4 F 85 20 119/60 100 08/12/20 08:00 08/12/20 08:00 08/12/20 08:00 08/12/20 08:00 08/12/20 08:00 no acute distress - *Routine HEENT Exam Head: Present: normocephalic Eye: Present: EOMI, PERRL ENT: Present: mucous membranes moist - *Routine Neck Exam Present: supple - *Routine Respiratory Exam Present: CTA bilaterally - *Routine Cardiovascular Exam Present: RRR - *Routine Abdominal Exam Present: soft, normoactive bowel sounds. Absent: tenderness - *Routine Extremities Exam Absent: cyanosis, clubbing, edema - *Routine Skin Exam Present: warm. Absent: rash - Detailed Eye Exam Eyelids: Bilateral normal inspection DS: Diagnosis - Discharge Diagnosis (1) Previous section complicating Status: Acute (2) Admission for sterilization Status: Acute Discharge Plan - Patient Discharge Instructions ACTIVITY: No heavy lifting DIET: continue same diet Additional Instructions: NO heavy lifting NO strenuous activity NO driving until approved by physician NOTHING in the Vagina for 6 weeks. Patient Instructions: Depression, Hemorrhage, DI for , DI for Pre-eclampsia, [facility] Post Discharge Instructions, Preventing the Spread of Coronavirus Discharge Instructions - Follow up Plan Follow up with: Zain Brar MD [Staff Physician] - 08/23/20 3:00 pm Rubens Guzmán MD [Primary Care Provider] - 08/16/20 9:30 am Disposition: Home, Self-Retirement Medications: Home Medications Medication Instructions Recorded Confirmed Type prenat.vits,clifford,[id number] 1 tab PO DAILY 12/30/19 08/09/20 History Docusate Sodium 100 mg PO DAILY 08/09/20 08/09/20 History Famotidine [Acid Mallet Cutter] 20 mg PO DAILY 08/09/20 08/09/20 History Ferrous Sulfate 325 mg PO DAILY 08/09/20 08/09/20 History Sertraline HCl [Zoloft] 50 mg PO DAILY 08/09/20 08/09/20 History ondansetron HCL [Zofran 4mg Tab*] 4 mg PO Q6HP PRN 08/09/20 08/09/20 History Oxycodone HCl/Acetaminophen 1 tab PO Q4-6H PRN #20 tablet 08/12/20 Rx [Percocet 5/325mg tablet] Prescriptions/Medication Reconciliation: New Oxycodone HCl/Acetaminophen [Percocet 5/325mg tablet] 1 tab PO Q4-6H PRN #20 tablet PRN Reason: Severe Pain Continued prenat.vits,clifford,[id number] 1 tab PO DAILY ondansetron HCL [Zofran 4mg Tab*] 4 mg PO Q6HP PRN PRN Reason: Nausea And Vomiting Sertraline HCl [Zoloft] 50 mg PO DAILY Ferrous Sulfate 325 mg PO DAILY Famotidine [Acid Mallet Cutter] 20 mg PO DAILY Docusate Sodium 100
== END 2020-08-12 16:42 | disposition home or self-care (01) | DRG 785 ==
PROVIDERS: Admitting Provider Nurse Practitioner Obstetrics & Gynecology; PCP Internal Medicine Adolescent Medicine; Visit Provider Nurse Practitioner Obstetrics & Gynecology
PROC: 0UT70ZZ Resection of Bilateral Fallopian Tubes, Open Approach (ICD-10-PCS; CPT 59514; principal; 2020-08-09 08:45)
DX: O34.211 Maternal care for low transverse scar from previous cesarean delivery (principal); N85.8 Other specified noninflammatory disorders of uterus; Z3A.39 39 weeks gestation of pregnancy; Z37.0 Single live birth; N83.202 Unspecified ovarian cyst, left side; Z30.2 Encounter for sterilization
CPT/HCPCS: 59514; 58700; 58925; 36415; 59025; 80048; 80305; 81001; 82800; 85014; 85018; 85025; 86850; 87086; 94761; G0283; G0463; J1956; U0003

== ENCOUNTER → 2020-09-21 14:46 | Outpatient (CLI) | payer OTHER, SELFPAY | PROVIDERS: PCP Internal Medicine Adolescent Medicine; Visit Provider Nurse Practitioner Obstetrics & Gynecology | DX: Z20.822 Contact with and (suspected) exposure to COVID-19 (principal); U07.1 COVID-19 | CPT/HCPCS: U0003 ==

== ENCOUNTER → 2020-10-04 09:47 | Outpatient (CLI) | payer OTHER, SELFPAY | PROVIDERS: PCP Internal Medicine Adolescent Medicine; Visit Provider Nurse Practitioner Obstetrics & Gynecology | DX: Z20.822 Contact with and (suspected) exposure to COVID-19 (principal); R50.9 Fever, unspecified; R05 Cough | CPT/HCPCS: U0003 ==

== ENCOUNTER 2020-11-01 12:48 | Emergency (ER) | payer OTHER, SELFPAY ==
[2020-11-01 13:01] VITALS: BP 127/79; PULSE 87; RESP 17; TEMP 36.9; O2SAT 100; BMI 23.1
--- NOTE | 2020-11-01 13:25 | HMH.EDUTC ---
[facility] [place] Disposition Clinical Impression: Allergic reaction Qualifiers: Encounter type: initial encounter Qualified Code(s): T78.40XA - Allergy, unspecified, initial encounter Disposition: Home, Self-Care Condition on Discharge: Good Instructions: DI for General Allergic Reactions, DI for Adverse Drug Reaction -- Allergic Additional Instructions: Contact your Family Doctor and inform them of rash after taking medication Rash is now gone but may get worse if you continue to take this medication, recommend not taking medication and making appointment with your doctor to discuss medication change Return if needed Over the counter Benadryl may help with itching associated with allergic reactions Referrals: Rubens Guzmán MD [Primary Care Provider] - As needed Time of Disposition: 13:32 Medical Decision Making - Jairo Inquiry Pt receiving controlled substance: No Jairo was queried for this patient: No Vital Signs: 11/01/20 13:01 Temperature 985.3 F H Temperature Source Oral Pulse Rate [Right] 87 Respiratory Rate 17 Blood Pressure [Right Arm] 127/79 Blood Pressure Mean [Right Arm] 95 Blood Pressure Source [Right Arm] Automatic Cuff Blood Pressure Position [Right Arm] Sitting 02 Sat by Pulse Oximetry 100 [facility] [place] HPI - General Stated complaint: red spots on arms Time Seen by Provider: 11/01/20 13:25 Mode of Arrival: Ambulatory Source of Information: Patient Limitations: No Limitations Description of Symptoms (Recalled from Triage Doc. by RN): pt c/o an allergic reaction. she states she has red spots on her hands and arms and a burning sensation. pt believe this is from sertraline. HEENT Symptoms (Recalled from RN notes): No Resp Symptoms (Recalled from RN notes): No Skin Symptoms (Recalled from RN notes): Yes (rash on hands/arms) MS Symptoms (Recalled from RN notes): No Functional Status (Recalled from RN notes): na - History of Present Illness Provider Complaint: Patient states that she has been on Sertraline for her anxiety but she hadnt taken it in awhile States that she had to take it last night and then she noticed she was breaking out in rash on both arms States that it is now almost gone but she was worried that she may be having a reaction - Related Data Home Medications Medication Instructions Recorded Confirmed prenat.vits,clifford,[id number] 1 tab PO DAILY 12/30/19 09/21/20 Ferrous Sulfate 325 mg PO DAILY 08/09/20 09/21/20 Previous Rx's Medication Instructions Recorded loperamide 2 mg capsule 2 mg PO Q6H PRN #10 cap 08/25/20 sertraline 50 mg tablet 100 mg PO DAILY #30 tab 09/21/20 ondansetron 4 mg disintegrating 4 mg PO Q6H PRN #30 tab 09/22/20 tablet nitrofurantoin 100 mg PO BID 5 Days #10 cap 10/01/20 monohydrate/macrocrystals 100 mg capsule Allergies Allergy/AdvReac Type Severity Reaction Status Date / Time cephalexin [From KEFLEX] Allergy Intermediate I-RASH Verified 11/01/20 13:05 - Worker's Comp Is this a Worker's Comp case?: No [facility] History - Hepatitis A Screen Drug use history?: No High risk sexual behaviors?: No History of sexually transmitted infection?: No Currently employed?: No Childcare worker?: No Do you have indoor plumbing?: Yes Do you have electricity?: Yes Attestation statement:: This patient has been screened for Hepatitis A risk factors. I have reviewed the patient's past medical history: Yes Medical History: Reports:: Anxiety, Asthma, Depression, Migraine Denies:: Cancer, Diabetes Mellitus Type 1, Diabetes Mellitus Type 2, Internal Pacemaker, MRSA, Seizures Other Medical History: Reports: Arthritis, Thyroid Disease Other Surgeries: Yes: No Previous Surgery, , Tubal Ligation (Bilateral Salgingectomy). No: Pacemaker Amputation: No Fractures: Yes (JAW) - Social History Smoking Status: Current every day smoker Tobacco Type: cigarettes # Packs/Day (cigarettes): 1 #Yrs smoked (if former smoker): 2 Alcohol Intake: never Alcohol Inta
[2020-11-01 13:46] VITALS: BP 127/79; PULSE 87; RESP 17; TEMP 36.8
== END 2020-11-01 13:46 | disposition home or self-care (01) ==
PROVIDERS: Emergency Provider Nurse Practitioner; PCP Internal Medicine Adolescent Medicine
DX: L27.0 Generalized skin eruption due to drugs and medicaments taken internally (principal); T43.225A Adverse effect of selective serotonin reuptake inhibitors, initial encounter
CPT/HCPCS: 99202; G0463

== ENCOUNTER 2020-11-18 22:07 | Emergency (ER) | payer OTHER, SELFPAY ==
[2020-11-18 22:09] VITALS: BMI 22.9
[2020-11-18 22:26] LABS: Urine Pregnancy, HCG Qual. Negative (Negative)
[2020-11-18 22:27] LABS: Appearance,Urine CLEAR (Clear); Bilirubin,Urine Negative (Negative); Blood, Urine 3+ (Negative); Color,Urine YELLOW (Yellow); Glucose,Urine (UA) Negative (Negative); Ketones,Urine Negative (Negative); Leukocyte Esterase,Urine Negative (Negative); Nitrate,Urine Negative (Negative); PH,Urine 5.5 (5.0-8.5); Protein,Urine Negative (Negative); Specific Gravity, Urine 1.025 (1.005-1.030); Urobilinogen,Urine 0.2 EU/dl (0.2)
[2020-11-18 22:28] VITALS: BP 120/69; PULSE 77; RESP 16; TEMP 37; O2SAT 99; BMI 22.8
[2020-11-18 22:28] LABS: Microscopic, Urine URINE MICROSCOPIC (MICROSCOPIC)
--- NOTE | 2020-11-18 22:29 | US_ITS ---
PROCEDURE INFORMATION: Exam: US Pelvis, Transvaginal Exam date and time: 11/18/2020 10:29 PM Age: 20 years old Clinical indication: Pelvic pain; Prior surgery; Surgery date: 1-6 months; Surgery type: C section and left ovarian cyst drained and tubal ligation in July 2020. PT has had 3 c sections in past history; Patient HX: Tonight low pelvis pain with brownish vaginal discharge; Additional info: Ovarian torsion versus cyst TECHNIQUE: Imaging protocol: Real-time transvaginal pelvic ultrasound with image documentation. Transvaginal imaging was used for better evaluation of the endometrium, adnexa, and/or cervix. COMPARISON: No comparison studies were made available at the time of interpretation. FINDINGS: Uterus/cervix: The uterus is anteverted and measures 8.2 x 4.6 x 5.2 cm. scar in the anterior inferior aspect of the uterus. Nabothian cysts in the lower uterine segment/cervix. The endometrium is normal in thickness, measuring 11.1 mm in thickness. Small amount of fluid in the endometrial canal. Right adnexa: The right ovary measures 3.0 x 2.2 x 2.0 cm and demonstrates ovarian follicles and a 1.4 x 2.1 x 1.3 cm dominant ovarian follicle. Left adnexa: The left ovary measures 2.7 x 1.7 x 2.1 cm and demonstrates ovarian follicles. Intraperitoneal space: No free fluid in the visualized field of view. IMPRESSION: 1.4 x 2.1 x 1.3 cm right dominant ovarian follicle. Small amount of fluid in the endometrial canal. Other findings noted above. The interpretation of this study is based on the receipt of a total image number of 37.
[2020-11-18 22:33] LABS: Basophils # 0.1 K/mm3 (0-0.2); Basophils % 0.6 % (0.1-2.0); Eosinophils # 0.1 K/mm3 (0.0-0.4); Hematocrit 39.1 % (37.0-47.0); Hemoglobin 13.3 g/dL (12.2-16.2); Lymphocytes # 2.7 K/mm3 (0.7-4.5); Lymphocytes % 27.5 % (10-50); Mean Corpuscular Hemoglobin 28.5 pg (27.0-31.2); Mean Corpuscular Volume 83.8 fl (81-99); Mean Platelet Volume 8.7 fl (7.4-10.4); Monocytes # 0.4 K/mm3 (0.1-1.0); Monocytes % 3.5 % (1.7-9.3); Neutrophils # 6.7 K/mm3 (1.8-7.8); Neutrophils % 67.5 % (37.0-80.0); Platelet Count 268 K/mm3 (142-424); Red Blood Count 4.66 M/mm3 (4.20-5.40); White Blood Count 9.9 K/mm3 (4.8-10.8)
[2020-11-18 22:38] LABS: Chloride 104 mmol/L (98-107); Sodium 141 mmol/L (136-145)
[2020-11-18 22:39] LABS: Potassium 3.8 mmoL/L (3.5-5.1)
[2020-11-18 22:41] LABS: Alanine Aminotransferase 28 U/L (12-78); Albumin Level 4.9 g/dl (3.5-5.0); Albumin/Globulin Ratio 1.8 (1.1-1.8); Alkaline Phosphatase 79 U/L (38-126); Anion Gap 14.8 mEq/L (5-15); Aspartate Amino Transferase 26 U/L (14-36); Bilirubin,Total 0.4 mg/dl (0.2-1.3); Blood Urea Nitrogen 10 mg/dl (7-17); Calcium 9.9 mg/dl (8.4-10.2); Carbon Dioxide 26 mmol/L (22.0-30.0); Creatinine Clearance Estimated 109 mL/min (50-200); Estimated Glomerular Filt Rate 91 ml/min (>60); GFR (African American) 110 ML/MIN (>60); Globulin 2.8 g/dL (1.3-3.2); Glucose 96 mg/dl (74-100); Lipase 148 U/L (23-300); Total Protein,Serum 7.7 g/dl (6.3-8.2)
[2020-11-18 22:45] LABS: Bacteria,Urine 1+ /lpf; Mucus,Urine 1+ /lpf
--- NOTE | 2020-11-18 23:08 | HMH.EDABDPAI ---
ED Disposition Clinical Impression: Ovarian cyst Disposition: Home, Self-Care Condition on Discharge: Good Instructions: DI for Acute Abdominal Pain Additional Instructions: Return for worsening pain fever chills nausea vomiting or any other concerns within the next 8 hours otherwise follow-up with your crimper assembler within the next few days. Prescriptions: Naproxen Sodium [Naproxen 220mg Tab] 220 mg PO BID PRN 10 Days #20 tab PRN Reason: Mild To Moderate Pain Transmission Status: Pending to [employer] #[id number] Referrals: Rubens Guzmán MD [Primary Care Provider] - - Critical Care Critical Care Time: No Attestation: On 11/18/20, the high probability of a clinically significant, sudden or life threatening deterioration of the following system(s) required my full and direct attention, intervention and personal management. The time I documented below is in addition to time spent performing reported procedures but includes the following listed in this critical care notation. Medical Decision Making - Medical Records Medical records reviewed: Yes: I reviewed the patient's medical records. - Jairo Inquiry Pt receiving controlled substance: No Vital Signs: 11/18/20 22:28 11/18/20 23:30 Temperature 98.6 F Temperature Source Oral Pulse Rate 65 Pulse Rate [Right] 77 Respiratory Rate 16 Blood Pressure 110/61 Blood Pressure [Right Arm] 120/69 Blood Pressure Mean [Right Arm] 86 Blood Pressure Source [Right Arm] Automatic Cuff Blood Pressure Position [Right Arm] Sitting 02 Sat by Pulse Oximetry 99 99 Oxygen Delivery Method Room Air - Lab Data Lab Results 11/18/20 22:17: Urine HCG, Qual Negative 11/18/20 22:17: Urine Color Yellow, Urine Appearance Clear, Urine pH 5.5, Ur Specific [place] 1.025, Urine Protein Negative, Urine Glucose (UA) Negative, Urine Ketones Negative, Urine Blood 3+, Urine Nitrate Negative, Urine Bilirubin Negative, Urine Urobilinogen 0.2, Ur Leukocyte Esterase Negative, Urine RBC 5-10, Urine WBC 3-5, Ur Squamous Epith Cells 3-5, Urine Bacteria 1+, Urine Mucus 1+ 11/18/20 22:24: WBC 9.9, RBC 4.66, Hgb 13.3, Hct 39.1, MCV 83.8, MCH 28.5, MCHC 34.0, RDW 14.0, Plt Count 268, MPV 8.7, Neut % (Auto) 67.5, Lymph % (Auto) 27.5, Dodge % (Auto) 3.5, Eos % (Auto) 1.0, Baso % (Auto) 0.6, Neut # (Auto) 6.7, Lymph # (Auto) 2.7, Dodge # (Auto) 0.4, Eos # (Auto) 0.1, Baso # (Auto) 0.1 11/18/20 22:24: Sodium 141, Potassium 3.8, Chloride 104, Carbon Dioxide 26, Anion Gap 14.8, BUN 10, Creatinine 0.80, Estimated Creat Clear 109, Estimated GFR 91, Est GFR ( Amer) 110, Glucose 96, Calcium 9.9, Total Bilirubin 0.4, AST 26, ALT 28, Alkaline Phosphatase 79, Total Protein 7.7, Albumin 4.9, Globulin 2.8, Albumin/Globulin Ratio 1.8, Lipase 148 Result diagrams: 11/18/20 22:24 11/18/20 22:24 Orders (Tests/Meds): ORDERS Category Date Time Status Rapid Strep Scrn Group A [Strep Scrn Group A (Rapid)] Lab 11/18/20 22:39 Ordered Stat Medical Decision Narrative: 20-year-old female presents with pelvic pain for the last few days. The symptoms are atypical for ovarian torsion. She is not test was negative. No concern for appendicitis based on history or exam. No fever no chills no discharge or concern for PID. Pelvic exam declined. Transvaginal ultrasound obtained and laboratory evaluation obtained as well. Ultrasound shows right ovarian cyst with free fluid in the abdomen no concern for ovarian torsion. Otherwise no remarkable findings, she is very comfortable on reexam without tenderness at all her pain. Plan to write her for anti-inflammatories and recommend follow-up with gynecology Abdominal Pain HPI - General Chief Complaint: Abdominal Pain Stated Complaint: sharp abdominal and back pain with brown discharge Time Seen by Provider: 11/18/20 22:10 Mode of Arrival: Ambulatory Limitations: No Limitations Description of Symptoms (Recalled from ER Triage Doc.
[2020-11-18 23:30] VITALS: BP 110/61; PULSE 65; O2SAT 99
[2020-11-18 23:57] VITALS: BP 115/62; PULSE 71; RESP 16; TEMP 36.8; O2SAT 99
== END 2020-11-18 23:59 | disposition home or self-care (01) ==
PROVIDERS: Emergency Provider Emergency Medicine; PCP Internal Medicine Adolescent Medicine
DX: N83.202 Unspecified ovarian cyst, left side (principal); F41.8 Other specified anxiety disorders; F17.210 Nicotine dependence, cigarettes, uncomplicated
CPT/HCPCS: 76830; 80053; 81001; 81025; 83690; 85025; 99283

== ENCOUNTER 2020-12-18 14:05 | Emergency (ER) | payer OTHER, SELFPAY ==
[2020-12-18 14:27] VITALS: BP 111/67; PULSE 86; RESP 16; TEMP 36.3; O2SAT 97; BMI 21.9
[2020-12-18 14:46] LABS: UTC Strep Screen (Rapid) Positive (Negative)
--- NOTE | 2020-12-18 14:50 | HMH.EDUTC ---
[facility] [place] Disposition Clinical Impression: Strep throat, STD (female) Disposition: Home, Self-Care Condition on Discharge: Good Instructions: DI for Strep Throat, An STD Now Can Result in Infertility Later, How to Detect and Treat STDs, Facts About Sexually Transmitted Infections Additional Instructions: Start antibiotics today be sure to take it as ordered with the full length of time although you should start feeling better in 24-48 hours. Change toothbrush and toothpaste 24-48 hours after starting antibiotics Tylenol or Motrin as needed for fever or pain Encourage fluids, water, Gatorade, Powerade, try cold fluids, popsicles, ice cream will make it feel better You are contagious for 24 hours. Avoid kissing anyone, no eating or drinking after anyone. You are contagious. Follow-up the ER for new or worsening symptoms or no noticeable improvement over the next 24-48 hours. Follow-up with PCP this week. practice safe sex practices Prescriptions: Azithromycin [Zithromax 250mg tab] 250 mg PO DIRECTED #6 tab Transmission Status: Pending to [facility] #[id number] Referrals: Rubens Guzmán MD [Primary Care Provider] - Time of Disposition: 15:01 Medical Decision Making - Jairo Inquiry Pt receiving controlled substance: No Vital Signs: 12/18/20 14:27 Temperature 97.4 F L Temperature Source Tympanic Pulse Rate [Apical] 86 Respiratory Rate 16 Blood Pressure [Right Arm] 111/67 Blood Pressure Mean [Right Arm] 81 Blood Pressure Source [Right Arm] Automatic Cuff Blood Pressure Position [Right Arm] Supine 02 Sat by Pulse Oximetry 97 Oxygen Delivery Method Room Air - Lab Data Lab Results 12/18/20 14:32: Strep Scn [facility] Positive A Orders (Tests/Meds): ORDERS Category Date Time Status HIV Panel [id number] Stat Lab 12/18/20 14:53 Ordered Hepatitis Panel (4) Stat Lab 12/18/20 14:53 Ordered Treponema pallidum Ab (FTA-ABS Stat Lab 12/18/20 14:53 Ordered Urinalysis and Microscopic Stat Lab 12/18/20 14:27 Ordered [facility] [place] HPI - General Chief complaint: Urgent [facility] Stated complaint: std panel Time Seen by Provider: 12/18/20 14:50 Mode of Arrival: Ambulatory Source of Information: Patient Limitations: No Limitations Description of Symptoms (Recalled from Triage Doc. by RN): std panel, sore throat HEENT Symptoms (Recalled from RN notes): No Resp Symptoms (Recalled from RN notes): No Skin Symptoms (Recalled from RN notes): No MS Symptoms (Recalled from RN notes): No Functional Status (Recalled from RN notes): na - History of Present Illness Provider Complaint: 20 yr old female presents for std testing no known exposer, and sore throat - Related Data Previous Rx's Medication Instructions Recorded sertraline 50 mg tablet 100 mg PO DAILY #30 tab 09/21/20 Naproxen Sodium [Naproxen 220mg 220 mg PO BID PRN 10 Days #20 tab 11/18/20 Tab] Azithromycin [Zithromax 250mg 250 mg PO DIRECTED #6 tab 12/18/20 tab] Allergies Allergy/AdvReac Type Severity Reaction Status Date / Time cephalexin [From KEFLEX] Allergy Intermediate I-RASH Verified 11/22/20 11:04 - Worker's Comp Is this a Worker's Comp case?: No Is this an H Worker's Comp?: No Is this a [place] Worker's Comp?: No [facility] History - Hepatitis A Screen Drug use history?: No High risk sexual behaviors?: No History of sexually transmitted infection?: No Currently employed?: No Childcare worker?: No Do you have indoor plumbing?: Yes Do you have electricity?: Yes Attestation statement:: This patient has been screened for Hepatitis A risk factors. I have reviewed the patient's past medical history: Yes Medical History: Reports:: Anxiety, Asthma, Depression, Migraine Denies:: Cancer, Diabetes Mellitus Type 1, Diabetes Mellitus Type 2, Internal Pacemaker, MRSA, Seizures Other Medical History: Reports: Arthritis, Thyroid Disease Other Surgeries: Yes: No Previous Surgery, , Tubal Ligation (Jeb
[2020-12-18 15:12] VITALS: BP 111/67; PULSE 86; RESP 16; TEMP 36.3; O2SAT 97
[2020-12-18 16:21] LABS: Microscopic, Urine URINE MICROSCOPIC (MICROSCOPIC)
[2020-12-18 16:23] LABS: Appearance,Urine CLOUDY (Clear); Bilirubin,Urine Negative (Negative); Blood, Urine 1+ (Negative); Color,Urine ORANGE (Yellow); Glucose,Urine (UA) Negative (Negative); Ketones,Urine TRACE (Negative); Leukocyte Esterase,Urine Negative (Negative); Nitrate,Urine Negative (Negative); Protein,Urine TRACE (Negative); Specific Gravity, Urine 1.025 (1.005-1.030)
[2020-12-18 16:31] LABS: Bacteria,Urine 3+ /lpf; Mucus,Urine 4+ /lpf
[2020-12-20 12:05] LABS: HIV Screen 4th Generation wRfx Non Reactive (Non Reactive)
[2020-12-21 08:09] LABS: Hep A Ab, IgM Negative (Negative); Hepatitis B Core Antibody IgM Negative (Negative); Hepatitis B Surface Antigen Negative (Negative); Hepatitis C Antibody <0.1 s/co ratio (0.0-0.9)
[2020-12-21 16:13] LABS: Treponema pallidum Ab (FTA-ABS Non Reactive (Non Reactive)
[2020-12-21 18:44] LABS: Neisseria gonorrhoeae, NAA Negative (Negative)
== END 2020-12-18 15:21 | disposition home or self-care (01) ==
PROVIDERS: Emergency Provider Nurse Practitioner Family; PCP Internal Medicine Adolescent Medicine
DX: J02.0 Streptococcal pharyngitis (principal); Z11.3 Encounter for screening for infections with a predominantly sexual mode of transmission; J45.909 Unspecified asthma, uncomplicated; F41.8 Other specified anxiety disorders; F17.210 Nicotine dependence, cigarettes, uncomplicated
CPT/HCPCS: 80074; 81001; 86703; 86780; 87086; 87491; 87591; 87880; 99202; G0432; G0463

== ENCOUNTER 2020-12-20 21:29 | Emergency (ER) | payer OTHER, SELFPAY ==
[2020-12-20 21:59] VITALS: BP 104/68; PULSE 99; RESP 18; TEMP 37.1; O2SAT 98; BMI 21.9
--- NOTE | 2020-12-20 22:13 | HMH.EDGENADL ---
ED Disposition Clinical Impression: Pharyngitis Qualifiers: Pharyngitis/tonsillitis etiology: streptococcus Qualified Code(s): J02.0 - Streptococcal pharyngitis Disposition: Home, Self-Care Condition on Discharge: Good Instructions: DI for Strep Throat Additional Instructions: fluids and see pcp for follow up Referrals: Rubens Guzmán MD [Primary Care Provider] - - Critical Care Critical Care Time: No Attestation: On 12/20/20, the high probability of a clinically significant, sudden or life threatening deterioration of the following system(s) required my full and direct attention, intervention and personal management. The time I documented below is in addition to time spent performing reported procedures but includes the following listed in this critical care notation. Medical Decision Making - Medical Records Medical records reviewed: Yes: I reviewed the patient's medical records. - Jairo Inquiry Pt receiving controlled substance: No Vital Signs: 12/20/20 21:59 Temperature 98.7 F Temperature Source Oral Pulse Rate [Right] 99 H Respiratory Rate 18 Blood Pressure [Right Arm] 104/68 L Blood Pressure Mean [Right Arm] 80 Blood Pressure Source [Right Arm] Automatic Cuff Blood Pressure Position [Right Arm] Sitting 02 Sat by Pulse Oximetry 98 Oxygen Delivery Method Room Air - Lab Data Lab results reviewed: Yes: I reviewed the patient's lab results. Lab Results 12/20/20 21:50: Urine Color Yellow, Urine Appearance Clear, Urine pH 8.0, Ur Specific Walsh 1.020, Urine Protein Negative, Urine Glucose (UA) Negative, Urine Ketones Negative, Urine Blood Negative, Urine Nitrate Negative, Urine Bilirubin Negative, Urine Urobilinogen 0.2, Ur Leukocyte Esterase Trace, Urine RBC Occasional, Urine WBC 3-5, Ur Squamous Epith Cells 5-10, Urine Bacteria None 12/20/20 22:25: WBC 9.1, RBC 5.03, Hgb 14.0, Hct 43.8, MCV 87.1, MCH 27.8, MCHC 31.9, RDW 12.7, Plt Count 265, MPV 8.3, Neut % (Auto) 66.9, Lymph % (Auto) 27.5, Johnson % (Auto) 4.3, Eos % (Auto) 0.9, Baso % (Auto) 0.4, Neut # (Auto) 6.1, Lymph # (Auto) 2.5, Johnson # (Auto) 0.4, Eos # (Auto) 0.1, Baso # (Auto) 0.0 12/20/20 22:25: Sodium 143, Potassium 4.0, Chloride 106, Carbon Dioxide 29, Anion Gap 12.0, BUN 9, Creatinine 0.80, Estimated Creat Clear 105, Estimated GFR 91, Est GFR ( Amer) 110, Glucose 90, Calcium 9.9, Total Bilirubin 0.3, AST 23, ALT 20, Alkaline Phosphatase 59, Total Protein 7.7, Albumin 4.8, Globulin 2.9, Albumin/Globulin Ratio 1.7 12/20/20 22:25: Monoscreen Negative 12/20/20 22:56: SARS-CoV-2 (PCR) Not detected, Influenza A Untype (PCR) Not detected, Influenza Type B (PCR) Not detected Result diagrams: 12/20/20 22:25 12/20/20 22:25 Orders (Tests/Meds): ED MEDICATIONS Generic Name Dose Route Start Last Admin Trade Name Freq PRN Reason Stop Dose Admin Sodium Chloride 1,000 mls @ 999 mls/hr 12/20/20 22:15 12/20/20 22:34 Sod Chlor 0.9% 1000ml Bag IV 12/20/20 23:15 999 mls/hr .Q1H1M AVILA Administration Ceftriaxone Sodium 1 gm/ 50 mls @ 100 mls/hr 12/20/20 22:15 12/20/20 22:34 Sodium Chloride IV 01/03/21 22:14 100 mls/hr Q24H AVILA Administration Protocol Discontinued Medications Generic Name Dose Route Start Last Admin Trade Name Freq PRN Reason Stop Dose Admin Ketorolac Tromethamine 30 mg 12/20/20 22:12 12/20/20 22:34 Ketorolac 30mg/Ml Vial IV 12/20/20 22:13 30 mg ONCE ONE Administration Methylprednisolone Sodium Succinate 125 mg 12/20/20 22:12 12/20/20 22:34 Methylprednisolone Sod Succ 125mg Vial IV 12/20/20 22:13 125 mg ONCE ONE Administration Medical Decision Narrative: has neg w/u and will give iv treatment and ask pt to see pcp General Adult HPI - General Chief complaint: PAIN Stated complaint: sore throat,vomiting Time Seen by Provider: 12/20/20 22:13 Mode of Arrival: Ambulatory Source of Information: Patient, Relative, Medical Record Limitations: No Limitations Descri
[2020-12-20 22:17] LABS: Microscopic, Urine URINE MICROSCOPIC (MICROSCOPIC)
[2020-12-20 22:27] LABS: Appearance,Urine CLEAR (Clear); Bilirubin,Urine Negative (Negative); Blood, Urine Negative (Negative); Color,Urine YELLOW (Yellow); Glucose,Urine (UA) Negative (Negative); Ketones,Urine Negative (Negative); Leukocyte Esterase,Urine TRACE (Negative); Nitrate,Urine Negative (Negative); Protein,Urine Negative (Negative); Urobilinogen,Urine 0.2 EU/dl (0.2)
[2020-12-20 22:34] LABS: RBC,Urine Occasional #/hpf (0-3)
[2020-12-20 22:50] LABS: Basophils % 0.4 % (0.1-2.0); Eosinophils # 0.1 K/mm3 (0.0-0.4); Eosinophils % 0.9 % (0.1-12.0); Hematocrit 43.8 % (37.0-47.0); Lymphocytes # 2.5 K/mm3 (0.7-4.5); Lymphocytes % 27.5 % (10-50); Mean Corpuscular HGB Conc 31.9 g/dL (31.8-35.4); Mean Corpuscular Hemoglobin 27.8 pg (27.0-31.2); Mean Corpuscular Volume 87.1 fl (81-99); Mean Platelet Volume 8.3 fl (7.4-10.4); Monocytes # 0.4 K/mm3 (0.1-1.0); Monocytes % 4.3 % (1.7-9.3); Neutrophils # 6.1 K/mm3 (1.8-7.8); Neutrophils % 66.9 % (37.0-80.0); Platelet Count 265 K/mm3 (142-424); Red Blood Count 5.03 M/mm3 (4.20-5.40); Red Cell Distribution Width 12.7 % (11.5-17.5); White Blood Count 9.1 K/mm3 (4.8-10.8)
[2020-12-20 22:57] LABS: Chloride 106 mmol/L (98-107)
[2020-12-20 22:58] LABS: Sodium 143 mmol/L (136-145)
[2020-12-20 23:00] LABS: Alanine Aminotransferase 20 U/L (12-78); Alkaline Phosphatase 59 U/L (38-126); Aspartate Amino Transferase 23 U/L (14-36); Bilirubin,Total 0.3 mg/dl (0.2-1.3); Blood Urea Nitrogen 9 mg/dl (7-17); Creatinine Clearance Estimated 105 mL/min (50-200); Estimated Glomerular Filt Rate 91 ml/min (>60); GFR (African American) 110 ML/MIN (>60)
[2020-12-20 23:01] LABS: Albumin Level 4.8 g/dl (3.5-5.0); Albumin/Globulin Ratio 1.7 (1.1-1.8); Calcium 9.9 mg/dl (8.4-10.2); Carbon Dioxide 29 mmol/L (22.0-30.0); Globulin 2.9 g/dL (1.3-3.2); Glucose 90 mg/dl (74-100); Total Protein,Serum 7.7 g/dl (6.3-8.2)
[2020-12-20 23:07] LABS: Coronavirus 19, PCR Not Detected (NotDetected); Influenza A, PCR Not Detected (NotDetected); Influenza B, PCR Not Detected (NotDetected)
[2020-12-20 23:34] LABS: Monoscreen (Rapid) Negative (Negative)
[2020-12-20 23:44] VITALS: BP 102/60; PULSE 78; RESP 16; TEMP 37.1; O2SAT 100
== END 2020-12-20 23:47 | disposition home or self-care (01) ==
PROVIDERS: Emergency Provider Emergency Medicine; PCP Internal Medicine Adolescent Medicine
DX: J02.0 Streptococcal pharyngitis (principal); F41.8 Other specified anxiety disorders; F17.210 Nicotine dependence, cigarettes, uncomplicated
CPT/HCPCS: 80053; 81001; 85025; 86318; 96365; 96367; 96375; 99283; U0003

== ENCOUNTER 2020-12-24 16:19 | Emergency (ER) | payer OTHER, SELFPAY ==
[2020-12-24 16:27] VITALS: BP 120/71; PULSE 82; RESP 18; TEMP 36.9; O2SAT 96; BMI 22.1
--- NOTE | 2020-12-24 16:40 | HMH.EDUTC ---
[facility] [place] Disposition Clinical Impression: Strep throat Disposition: Home, Self-Care Condition on Discharge: Good Instructions: DI for Strep Throat, Strep Throat Additional Instructions: *Monitor Temp, Over the counter Motrin or Tylenol as directed/as needed Tylenol every 4 hours and Motrin every 6 hours (as long as your family doctor has told you that you can take it) for fever or pain. and straight to ER if unable to lower temp less than 101.0 after medication given *Warm salt water gargles may help to soothe the throat *Throat Lozenges *Warm fluids like tea with honey may help to soothe the throat *Sleep elevated *Humidifier/Vaporizer *Flonase 2 sprays in each nostril daily but be aware that it may take 2-3 days before you notice improvement *If you did not take Penicillin shot or was unable to, start taking antibiotic immediately and make sure that you take it for the FULL length of time although you should start to feel better in 24-48 hours *change toothbrush and toothpaste 24-48 hours after starting to take antibiotics so you do not reinfect yourself Monitor Temp. Tylenol and/or Ibuprofen as needed. ER if fever is no less than 101 despite alternating Tylenol and Ibuprofen * Encourage fluids, water, Gatorade, powerade, pedialyte if infant/toddler/or child *Cold fluids, popsicles and ice cream may feel good on his throat Follow up IMMEDIATELY for new or worsening symptoms or no Noticeable improvement over the next 48-72 hours. 911 for difficulty breathing or swallowing Prescriptions: Amoxicillin [Amoxicillin 500mg Cap] 500 mg PO TID #30 cap Transmission Status: Pending to [facility] # Fluticasone Propionate [Flonase 50mcg nasal spray 16gm] 1 spr NS DAILY #1 bottle Transmission Status: Pending to [facility] # methylPREDNISolone [Medrol 4mg tab] 4 mg PO DIRECTED #21 tab Transmission Status: Pending to [facility] # Referrals: Rubens Guzmán MD [Primary Care Provider] - As needed Medical Decision Making - Jairo Inquiry Pt receiving controlled substance: No Jairo was queried for this patient: No Vital Signs: 12/24/20 16:27 Temperature 98.5 F Temperature Source Oral Pulse Rate [Left] 82 Respiratory Rate 18 Blood Pressure [Right Arm] 120/71 Blood Pressure Mean [Right Arm] 87 02 Sat by Pulse Oximetry 96 Medical Decision Narrative: Patient states that she is allergic to Keflex but has taken amoxicillin in the past without reactions or complications [facility] [place] HPI - General Stated complaint: sore throat, left ear Time Seen by Provider: 12/24/20 16:40 Mode of Arrival: Ambulatory Source of Information: Patient Limitations: No Limitations Description of Symptoms (Recalled from Triage Doc. by RN): pt c/o a sore throat and L ear ache HEENT Symptoms (Recalled from RN notes): Yes (sore throat and L ear ache) Resp Symptoms (Recalled from RN notes): No Skin Symptoms (Recalled from RN notes): No MS Symptoms (Recalled from RN notes): No Functional Status (Recalled from RN notes): na - History of Present Illness Provider Complaint: Patient states that she was seen last week for strep throat and given antibiotics States that she got better but now feels like she has strep throat again States that her throat is hurting and her left ear is hurting and sounds muffled States that today she came back in to get checked again - Related Data Previous Rx's Medication Instructions Recorded sertraline 50 mg tablet 100 mg PO DAILY #30 tab 09/21/20 Naproxen Sodium [Naproxen 220mg 220 mg PO BID PRN 10 Days #20 tab 11/18/20 Tab] Azithromycin [Zithromax 250mg 250 mg PO DIRECTED #6 tab 12/18/20 tab] Amoxicillin [Amoxicillin 500mg 500 mg PO TID #30 cap 12/24/20 Cap] Fluticasone Propionate [Flonase 1 spr NS DAILY #1 bottle 12/24/20 50mcg nasal spray 16gm] methylPREDNISolone [Medrol 4mg 4 mg PO DIRECTED #21 tab 12/24/20 tab] Allergies Allerg
[2020-12-24 16:57] LABS: UTC Strep Screen (Rapid) Positive (Negative)
[2020-12-24 17:04] VITALS: BP 118/72; PULSE 78; RESP 18; TEMP 36.9
== END 2020-12-24 17:10 | disposition home or self-care (01) ==
PROVIDERS: Emergency Provider Nurse Practitioner; PCP Internal Medicine Adolescent Medicine
DX: J02.0 Streptococcal pharyngitis (principal); F41.8 Other specified anxiety disorders; J45.909 Unspecified asthma, uncomplicated; F17.210 Nicotine dependence, cigarettes, uncomplicated
CPT/HCPCS: 87880; 99202; G0463

== ENCOUNTER 2021-01-11 20:47 | Emergency (ER) | payer OTHER, SELFPAY ==
[2021-01-11 21:30] VITALS: BP 107/65; PULSE 86; RESP 19; TEMP 36.8; O2SAT 98; BMI 21.4
--- NOTE | 2021-01-11 22:01 | HMH.EDUTC ---
[facility] [place] Disposition Clinical Impression: Strep throat Disposition: Home, Self-Care Condition on Discharge: Good Instructions: Strep Throat (Alternative Therapy), DI for Strep Throat, Amoxicillin and Clavulanic Acid Additional Instructions: *Monitor Temp, Over the counter Motrin or Tylenol as directed/as needed Tylenol every 4 hours and Motrin every 6 hours (as long as your family doctor has told you that you can take it) for fever or pain. and straight to ER if unable to lower temp less than 101.0 after medication given *Warm salt water gargles may help to soothe the throat *Throat Lozenges *Warm fluids like tea with honey may help to soothe the throat *Sleep elevated *Humidifier/Vaporizer *If you did not take Penicillin shot or was unable to, start taking antibiotic immediately and make sure that you take it for the FULL length of time although you should start to feel better in 24-48 hours *change toothbrush and toothpaste 24-48 hours after starting to take antibiotics so you do not reinfect yourself Monitor Temp. Tylenol and/or Ibuprofen as needed. ER if fever is no less than 101 despite alternating Tylenol and Ibuprofen * Encourage fluids, water, Gatorade, powerade, pedialyte if /toddler/or child *Cold fluids, popsicles and ice cream may feel good on his throat Follow up IMMEDIATELY for new or worsening symptoms or no Noticeable improvement over the next 48-72 hours. 911 for difficulty breathing or swallowing You were tested for today for COVID19 your test result should be back in the next 24-48 hours, you may call to the [facility] to see if your test results are back in the next 48 hours [phone] [facility] hours are 9am-9pm You was given a handout with instructions for Self Quarantine and Self isolation for while you wait on test results and what to do if they are positive If you are positive the Health Dept will be contacting you also Make sure to take your Vitamins Vit. C Vit D and Zinc if you can take them Prescriptions: Amoxicillin/Potassium Clav [Augmentin 875-125 Tablet] 1 tab PO Q12H 10 Days #20 tab Transmission Status: Pending to [facility] #[id number] Referrals: Rubens Guzmán MD [Primary Care Provider] - As needed Zarate,Bolivar, MD [Staff Physician] - Andria Lowe MD [Consulting Physician] - Forms: Work/School Release Time of Disposition: 22:06 Medical Decision Making - Jairo Inquiry Pt receiving controlled substance: No Jairo was queried for this patient: No Vital Signs: 01/11/21 21:30 Temperature 98.3 F Temperature Source Oral Pulse Rate [Right Brachial] 86 Respiratory Rate 19 Blood Pressure [Right Arm] 107/65 L Blood Pressure Mean [Right Arm] 79 Blood Pressure Source [Right Arm] Automatic Cuff Blood Pressure Position [Right Arm] Sitting 02 Sat by Pulse Oximetry 98 Oxygen Delivery Method Room Air - Lab Data Lab results reviewed: Yes: I reviewed the patient's lab results. Orders (Tests/Meds): ORDERS Category Date Time Status Covid-19 Nasal PCR ([facility]) Routine Lab 01/11/21 21:44 Received Medical Decision Narrative: Patient state that she is allergic to Cephalexin but has taken augmentin in the past without reactions or complications [facility] [place] HPI - General Stated complaint: covid with sore throat,congestion Time Seen by Provider: 01/11/21 22:01 Mode of Arrival: Ambulatory Source of Information: Patient Limitations: No Limitations Description of Symptoms (Recalled from Triage Doc. by RN): PATIENT C/O SORE THROAT, CONGESTION, BODY ACHES, AND NAUSEA X 2 DAYS HEENT Symptoms (Recalled from RN notes): Yes Resp Symptoms (Recalled from RN notes): No Skin Symptoms (Recalled from RN notes): No MS Symptoms (Recalled from RN notes): No Functional Status (Recalled from RN notes): WNL - History of Present Illness Provider Complaint: Patient state that she has had strep throat several times over the last couple of months States that she feels like she may have it again States ashley
[2021-01-11 22:02] LABS: UTC Strep Screen (Rapid) Positive (Negative)
[2021-01-11 22:12] VITALS: BP 107/65; PULSE 86; RESP 19; TEMP 36.8; O2SAT 98
== END 2021-01-11 22:15 | disposition home or self-care (01) ==
PROVIDERS: Emergency Provider Nurse Practitioner; PCP Internal Medicine Adolescent Medicine
DX: J02.0 Streptococcal pharyngitis (principal); Z20.822 Contact with and (suspected) exposure to COVID-19; F41.8 Other specified anxiety disorders; F17.210 Nicotine dependence, cigarettes, uncomplicated
CPT/HCPCS: 87880; 99203; G0463; U0003

== ENCOUNTER 2021-01-15 19:24 | Emergency (ER) | payer OTHER, SELFPAY ==
[2021-01-15 19:44] LABS: Influenza A, PCR Not Detected (NotDetected); Influenza B, PCR Not Detected (NotDetected)
[2021-01-15 19:47] VITALS: BP 105/68; PULSE 110; RESP 16; TEMP 37.4; O2SAT 97; BMI 21.4
[2021-01-15 20:07] LABS: Coronavirus 19, PCR Detected (NotDetected)
--- NOTE | 2021-01-15 20:47 | XR_ITS ---
PROCEDURE INFORMATION: Exam: XR Chest Exam date and time: 01/15/2021 8:47 PM Age: 21 years old Clinical indication: Cough and fever and other: Covid; Additional info: Covid + cough fever TECHNIQUE: Imaging protocol: XR of the chest. Views: 2 views. COMPARISON: CR CXR2V XR chest 2V 05/12/2018 11:22 AM FINDINGS: Lungs: Unremarkable. No consolidation. Pleural spaces: Unremarkable. No pleural effusion. No pneumothorax. Heart/Mediastinum: Unremarkable. No cardiomegaly. Bones/joints: Unremarkable. IMPRESSION: No acute findings.
--- NOTE | 2021-01-15 20:47 | HMH.EDFEV ---
ED Disposition Clinical Impression: COVID-19, Strep pharyngitis Disposition: Home, Self-Care Condition on Discharge: Good Additional Instructions: Needed pain Tylenol Motrin to control fever. Drink plenty of fluids. Self quarantine for next 14 days. Return to the emergency room for any new symptoms. Follow-up with primary care physician in 2 days. Continue antibiotic as directed for strep throat. Take over the counter medications for sore throat. Referrals: Rubens Guzmán MD [Primary Care Provider] - - Critical Care Critical Care Time: No Attestation: On 01/15/21, the high probability of a clinically significant, sudden or life threatening deterioration of the following system(s) required my full and direct attention, intervention and personal management. The time I documented below is in addition to time spent performing reported procedures but includes the following listed in this critical care notation. Medical Decision Making - Medical Records MR Comment: Patient was tested positive for Covid. She does not have any respiratory symptoms. No cough. No shortness of breath. She was tested positive for strep test. She is recommended to continue Augmentin. Her chest x-ray was clear. No infiltrate. - Jairo Inquiry Pt receiving controlled substance: No Jairo was queried for this patient: No Vital Signs: 01/15/21 19:47 Temperature 99.4 F Temperature Source Oral Pulse Rate [Right] 110 H Respiratory Rate 16 Blood Pressure [Right Arm] 105/68 L Blood Pressure Mean [Right Arm] 80 Blood Pressure Source [Right Arm] Automatic Cuff Blood Pressure Position [Right Arm] Sitting 02 Sat by Pulse Oximetry 97 Oxygen Delivery Method Room Air - Lab Data Lab Results 01/15/21 19:34: SARS-CoV-2 (PCR) Detected A, Influenza A Untype (PCR) Not detected, Influenza Type B (PCR) Not detected Fever HPI - General Chief Complaint: Fever Stated Complaint: fever 101,tyron aches,sore throat Time Seen by Provider: 01/15/21 20:47 Mode of Arrival: Ambulatory Limitations: No Limitations Description of Symptoms (Recalled from ER Triage Doc. by RN): Pt tested positive for Strep last sunday in the [facility], placed on ABX, but feels worse today with fever and chills. Pt wanted checked for COVID. - History of Present Illness HPI Narrative: The patient is a 21-year-old female who was diagnosed with strep test about 3 days ago and started on antibiotic. She is on Augmentin for the past 3 days. Despite that she still has. fever and muscle aches. She has no nausea or vomiting. She has no abdominal pain. She does not have any shortness of breath. She does not have any chronic disease. She does not take any medication on a regular basis. - Related Data Previous Rx's Medication Instructions Recorded sertraline 50 mg tablet 100 mg PO DAILY #30 tab 09/21/20 Naproxen Sodium [Naproxen 220mg 220 mg PO BID PRN 10 Days #20 tab 11/18/20 Tab] Azithromycin [Zithromax 250mg 250 mg PO DIRECTED #6 tab 12/18/20 tab] Amoxicillin [Amoxicillin 500mg 500 mg PO TID #30 cap 12/24/20 Cap] Fluticasone Propionate [Flonase 1 spr NS DAILY #1 bottle 12/24/20 50mcg nasal spray 16gm] methylPREDNISolone [Medrol 4mg 4 mg PO DIRECTED #21 tab 12/24/20 tab] Amoxicillin/Potassium Clav 1 tab PO Q12H 10 Days #20 tab 01/11/21 [Augmentin 875-125 Tablet] Allergies Allergy/AdvReac Type Severity Reaction Status Date / Time cephalexin [From KEFLEX] Allergy Intermediate I-RASH Verified 12/24/20 16:32 [facility] History - Hepatitis A Screen Drug use history?: No High risk sexual behaviors?: No History of sexually transmitted infection?: No Currently employed?: No Childcare worker?: No Do you have indoor plumbing?: Yes Do you have electricity?: Yes Attestation statement:: This patient has been screened for Hepatitis A risk factors. Medical History: Reports:: Anxiety, Asthma, Depression, Migraine Denies:: Cancer, Diabetes M
[2021-01-15 21:34] VITALS: BP 112/60; PULSE 92; RESP 16; TEMP 37.4; O2SAT 97
== END 2021-01-15 21:35 | disposition home or self-care (01) ==
PROVIDERS: Emergency Provider Emergency Medicine; PCP Internal Medicine Adolescent Medicine
DX: U07.1 COVID-19 (principal); J02.0 Streptococcal pharyngitis; M79.7 Fibromyalgia; F41.8 Other specified anxiety disorders; J45.909 Unspecified asthma, uncomplicated; F17.210 Nicotine dependence, cigarettes, uncomplicated; Z79.899 Other long term (current) drug therapy
CPT/HCPCS: 71046; 99282; U0003

== ENCOUNTER 2021-01-27 16:05 | Emergency (ER) | payer OTHER, SELFPAY ==
[2021-01-27 16:07] VITALS: BP 113/70; PULSE 76; RESP 16; TEMP 36.7; O2SAT 97; BMI 25.0
--- NOTE | 2021-01-27 16:56 | XR_ITS ---
PROCEDURE INFORMATION: Exam: XR Chest Exam date and time: 01/27/2021 4:56 PM Age: 21 years old Clinical indication: Patient HX: Patient is just done with covid quarantine period but still having symptoms, shortness of breath. ; Additional info: Intermittent SOA TECHNIQUE: Imaging protocol: XR of the chest. Portable AP upright exam. Views: 1 view. Four images received. COMPARISON: CR XR CHEST 2V 01/15/2021 9:09 PM FINDINGS: Lungs: Mild pulmonary hyperinflation. No focal consolidation. No significant airspace disease seen. Pleural spaces: Unremarkable. No significant pleural effusion. No pneumothorax. Heart/Mediastinum: The cardiac silhouette is normal. Bones/joints: There is no evidence of acute fracture. IMPRESSION: 1. Mild pulmonary hyperinflation. 2. No pulmonary consolidation. 3. Note that subtle ground-glass opacities of COVID-19 pneumonia can be radiographically occult. If further imaging is warranted by the clinical findings or course, recommend CT.
[2021-01-27 17:30] VITALS: BP 106/68; PULSE 63; RESP 18; O2SAT 99
[2021-01-27 17:39] LABS: Basophils % 0.4 % (0.1-2.0); Eosinophils % 0.4 % (0.1-12.0); Hematocrit 42.7 % (37.0-47.0); Hemoglobin 13.9 g/dL (12.2-16.2); Lymphocytes # 1.9 K/mm3 (0.7-4.5); Lymphocytes % 25.7 % (10-50); Mean Corpuscular HGB Conc 32.5 g/dL (31.8-35.4); Mean Corpuscular Hemoglobin 28.6 pg (27.0-31.2); Mean Corpuscular Volume 88.1 fl (81-99); Mean Platelet Volume 9.3 fl (7.4-10.4); Monocytes # 0.4 K/mm3 (0.1-1.0); Monocytes % 4.7 % (1.7-9.3); Neutrophils # 5.2 K/mm3 (1.8-7.8); Neutrophils % 68.8 % (37.0-80.0); Platelet Count 279 K/mm3 (142-424); Red Blood Count 4.85 M/mm3 (4.20-5.40); Red Cell Distribution Width 12.8 % (11.5-17.5); White Blood Count 7.5 K/mm3 (4.8-10.8)
[2021-01-27 17:41] LABS: Alanine Aminotransferase 20 U/L (12-78); Albumin Level 4.3 g/dl (3.5-5.0); Albumin/Globulin Ratio 1.6 (1.1-1.8); Alkaline Phosphatase 59 U/L (38-126); Anion Gap 12.9 mEq/L (5-15); Aspartate Amino Transferase 24 U/L (14-36); Bilirubin,Total 0.6 mg/dl (0.2-1.3); Blood Urea Nitrogen 11 mg/dl (7-17); Calcium 9.6 mg/dl (8.4-10.2); Carbon Dioxide 27 mmol/L (22.0-30.0); Chloride 105 mmol/L (98-107); Creatinine Clearance Estimated 122 mL/min (50-200); Estimated Glomerular Filt Rate 90 ml/min (>60); GFR (African American) 109 ML/MIN (>60); Globulin 2.7 g/dL (1.3-3.2); Glucose 94 mg/dl (74-100); Potassium 3.9 mmoL/L (3.5-5.1); Sodium 141 mmol/L (136-145)
--- NOTE | 2021-01-27 18:11 | HMH.EDGENADL ---
ED Disposition Clinical Impression: COVID-19 virus infection Disposition: Home, Self-Care Condition on Discharge: Good Additional Instructions: Continue to isolate until your symptoms are improving and also no fevers for 24 hours without taking ibuprofen or Tylenol. Drink plenty of fluids. Zofran for nausea. [id number] Imodium for diarrhea. Prescriptions: Ondansetron [Zofran 4mg ODT] 4 mg PO TIDP PRN #10 tab PRN Reason: Nausea And Vomiting Transmission Status: Pending to [facility] #[id number] Referrals: Rubens Guzmán MD [Primary Care Provider] - - Critical Care Critical Care Time: No Attestation: On 01/27/21, the high probability of a clinically significant, sudden or life threatening deterioration of the following system(s) required my full and direct attention, intervention and personal management. The time I documented below is in addition to time spent performing reported procedures but includes the following listed in this critical care notation. Medical Decision Making - Jairo Inquiry Pt receiving controlled substance: No Vital Signs: 01/27/21 16:07 Temperature 98.0 F Temperature Source Oral Pulse Rate [Right] 76 Respiratory Rate 16 Blood Pressure [Right Arm] 113/70 Blood Pressure Mean [Right Arm] 84 02 Sat by Pulse Oximetry 97 Oxygen Delivery Method Room Air - Lab Data Lab Results 01/27/21 17:17: WBC 7.5, RBC 4.85, Hgb 13.9, Hct 42.7, MCV 88.1, MCH 28.6, MCHC 32.5, RDW 12.8, Plt Count 279, MPV 9.3, Neut % (Auto) 68.8, Lymph % (Auto) 25.7, [place] % (Auto) 4.7, Eos % (Auto) 0.4, Baso % (Auto) 0.4, Neut # (Auto) 5.2, Lymph # (Auto) 1.9, [place] # (Auto) 0.4, Eos # (Auto) 0.0, Baso # (Auto) 0.0 01/27/21 17:17: Sodium 141, Potassium 3.9, Chloride 105, Carbon Dioxide 27, Anion Gap 12.9, BUN 11, Creatinine 0.80, Estimated Creat Clear 122, Estimated GFR 90, Est GFR ( Amer) 109, Glucose 94, Calcium 9.6, Total Bilirubin 0.6, AST 24, ALT 20, Alkaline Phosphatase 59, Total Protein 7.0, Albumin 4.3, Globulin 2.7, Albumin/Globulin Ratio 1.6 Result diagrams: 01/27/21 17:17 01/27/21 17:17 Orders (Tests/Meds): ED MEDICATIONS Discontinued Medications Generic Name Dose Route Start Last Admin Trade Name Freq PRN Reason Stop Dose Admin Ondansetron HCl 4 mg 01/27/21 18:20 Ondansetron 4mg/2ml Vial IV 01/27/21 18:21 ONCE ONE Sodium Chloride 1,000 ml 01/27/21 18:20 Sodium Chloride 0.9% 1000ml Bag IV 01/27/21 18:21 BOLUS ONE ORDERS Category Date Time Status Serum [HCG Qualitative, Serum] Stat Lab 01/27/21 18:20 Ordered Urinalysis and Microscopic Stat Lab 01/27/21 16:56 Ordered - Radiology Data #1 Image(s): Chest Image Reviewed: Yes I have reviewed radiologist's interpretation PROCEDURE INFORMATION: Exam: XR Chest Exam date and time: 01/27/2021 4:56 PM Age: 21 years old Clinical indication: Patient HX: Patient is just done with covid quarantine period but still having symptoms, shortness of breath. ; Additional info: Intermittent SOA TECHNIQUE: Imaging protocol: XR of the chest. Portable AP upright exam. Views: 1 view. Four images received. COMPARISON: CR XR CHEST 2V 01/15/2021 9:09 PM FINDINGS: Lungs: Mild pulmonary hyperinflation. No focal consolidation. No significant airspace disease seen. Pleural spaces: Unremarkable. No significant pleural effusion. No pneumothorax. Heart/Mediastinum: The cardiac silhouette is normal. Bones/joints: There is no evidence of acute fracture. IMPRESSION: 1. Mild pulmonary hyperinflation. 2. No pulmonary consolidation. 3. Note that subtle ground-glass opacities of COVID-19 pneumonia can be radiographically occult. If further imaging is warranted by the clinical findings or course, recommend CT. Medical Decision Narrative: Advised patient that isolation for COVID-19 is recommend
[2021-01-27 18:15] VITALS: BP 112/64; PULSE 75; RESP 18; O2SAT 98
[2021-01-27 18:33] LABS: Microscopic, Urine URINE MICROSCOPIC (MICROSCOPIC)
[2021-01-27 18:35] VITALS: BP 112/64; PULSE 64; RESP 18; O2SAT 99
[2021-01-27 18:36] LABS: HCG Qualitative, Serum Negative (Negative)
[2021-01-27 18:39] LABS: Appearance,Urine CLEAR (Clear); Blood, Urine 3+ (Negative); Color,Urine YELLOW (Yellow); Glucose,Urine (UA) Negative (Negative); Ketones,Urine 1+ (Negative); Leukocyte Esterase,Urine Negative (Negative); Nitrate,Urine Negative (Negative); PH,Urine 6.5 (5.0-8.5); Protein,Urine TRACE (Negative); Urobilinogen,Urine 0.2 EU/dl (0.2)
[2021-01-27 18:41] LABS: Bilirubin,Urine 1+ (Negative)
[2021-01-27 18:55] LABS: Bacteria,Urine 3+ /lpf; Mucus,Urine 4+ /lpf
[2021-01-27 19:00] VITALS: BP 125/65; PULSE 78; RESP 18; TEMP 36.8; O2SAT 98
== END 2021-01-27 19:09 | disposition home or self-care (01) ==
PROVIDERS: Emergency Provider Emergency Medicine; PCP Internal Medicine Adolescent Medicine
DX: U07.1 COVID-19 (principal); F41.8 Other specified anxiety disorders; F17.210 Nicotine dependence, cigarettes, uncomplicated
CPT/HCPCS: 71045; 80053; 81001; 84703; 85025; 87086; 99283; J2405

== ENCOUNTER → 2021-02-10 16:10 | Outpatient (CLI) | payer OTHER, SELFPAY | PROVIDERS: Visit Provider Nurse Practitioner Family | DX: J02.9 Acute pharyngitis, unspecified (principal) | CPT/HCPCS: 87070; 87077 ==

== ENCOUNTER 2021-03-23 14:52 | Emergency (ER) | payer OTHER, SELFPAY ==
[2021-03-23 16:15] VITALS: BP 103/60; PULSE 74; RESP 20; TEMP 36.9; O2SAT 96; BMI 20.7
--- NOTE | 2021-03-23 16:35 | HMH.EDUTC ---
[facility] [place] Disposition Clinical Impression: Strep throat Disposition: Home, Self-Care Condition on Discharge: Good Instructions: Strep Throat, DI for Strep Throat Additional Instructions: Drink plenty of fluids. Take tylenol or ibuprofen for pain or fever. Take the medications as directed. Follow up with your regular doctor. GO TO THE ER FOR ANY WORSENING SYMPTOMS Throw your tooth brush away and get a new one. Prescriptions: Brompheniramine/Pseudoephed/Dm [Bromfed Dm Cough Syrup] 5 ml PO Q6HP PRN #240 ml PRN Reason: Cough Transmission Status: Received by [facility] # Amoxicillin [Amoxicillin 500mg Tab] 500 mg PO TID 10 Days #30 tab Transmission Status: Received by [facility] # predniSONE [Deltasone 10mg tablet] 10 mg PO BID 3 Days #6 tab Transmission Status: Received by [facility] # Referrals: Rubens Guzmán MD [Primary Care Provider] - Forms: Work/School Release Time of Disposition: 17:02 Medical Decision Making - Medical Records Medical records reviewed: No: I reviewed the patient's medical records. - Jairo Inquiry Pt receiving controlled substance: No Vital Signs: 03/23/21 16:15 03/23/21 16:58 Temperature 98.5 F 98.5 F Temperature Source Oral Pulse Rate 74 Pulse Rate [Right] 74 Respiratory Rate 20 20 Blood Pressure 103/60 L Blood Pressure [Right Arm] 103/60 L Blood Pressure Mean [Right Arm] 74 Blood Pressure Source [Right Arm] Automatic Cuff Blood Pressure Position [Right Arm] Sitting 02 Sat by Pulse Oximetry 96 Oxygen Delivery Method Room Air - Lab Data Lab results reviewed: Yes: I reviewed the patient's lab results. Lab Results 03/23/21 16:37: Strep Scn Rapid Clinic Positive A [facility] [place] HPI - General Stated complaint: sore throat Time Seen by Provider: 03/23/21 16:35 Mode of Arrival: Ambulatory Source of Information: Patient Limitations: No Limitations Description of Symptoms (Recalled from Triage Doc. by RN): PATIENT C/O SORE THROAT SINCE YESTERDAY HEENT Symptoms (Recalled from RN notes): Yes Resp Symptoms (Recalled from RN notes): No Skin Symptoms (Recalled from RN notes): No MS Symptoms (Recalled from RN notes): No Functional Status (Recalled from RN notes): WNL - History of Present Illness Provider Complaint: She states that for the past 2 days she has had a sore throat and sinus drainage. She denies fever, but she has had chilling. - Related Data Home Medications Medication Instructions Recorded Confirmed trazodone 50 mg tablet 50 mg PO DAILY 03/22/21 03/23/21 norgestimate-ethinyl estradioL 1 tab PO DAILY 03/23/21 03/23/21 [Previfem Tablet] Previous Rx's Medication Instructions Recorded Amoxicillin [Amoxicillin 500mg Tab] 500 mg PO TID 10 Days #30 tab 03/23/21 Brompheniramine/Pseudoephed/Dm 5 ml PO Q6HP PRN #240 ml 03/23/21 [Bromfed Dm Cough Syrup] predniSONE [Deltasone 10mg tablet] 10 mg PO BID 3 Days #6 tab 03/23/21 Allergies Allergy/AdvReac Type Severity Reaction Status Date / Time cephalexin [From KEFLEX] Allergy Intermediate I-RASH Verified 03/22/21 14:04 - Worker's Comp Is this a Worker's Comp case?: No [facility] History - Hepatitis A Screen Drug use history?: No High risk sexual behaviors?: No History of sexually transmitted infection?: No Currently employed?: No Childcare worker?: No Do you have indoor plumbing?: Yes Do you have electricity?: Yes Attestation statement:: This patient has been screened for Hepatitis A risk factors. I have reviewed the patient's past medical history: Yes Medical History: Reports:: Anxiety, Asthma, Depression, Migraine Denies:: Cancer, Diabetes Mellitus Type 1, Diabetes Mellitus Type 2, Internal Pacemaker, MRSA, Seizures Other Medical History: Reports: Arthritis, Thyroid Disease Other Surgeries: Yes: No Previous Surgery, , Tubal Ligation (Bilateral Salgingectomy). No: Pacemaker Amputation: No Fractures: Yes (JAW)
[2021-03-23 16:38] LABS: UTC Strep Screen (Rapid) Positive (Negative)
[2021-03-23 16:58] VITALS: BP 103/60; PULSE 74; RESP 20; TEMP 36.9; O2SAT 96
== END 2021-03-23 17:05 | disposition home or self-care (01) ==
PROVIDERS: Emergency Provider Nurse Practitioner Family; PCP Internal Medicine Adolescent Medicine
DX: J02.0 Streptococcal pharyngitis (principal); F41.8 Other specified anxiety disorders; J45.909 Unspecified asthma, uncomplicated; G43.709 Chronic migraine without aura, not intractable, without status migrainosus; F17.210 Nicotine dependence, cigarettes, uncomplicated
CPT/HCPCS: 87880; 99202; G0463

== ENCOUNTER 2021-04-10 14:53 | Emergency (ER) | payer OTHER, SELFPAY ==
[2021-04-10 14:55] VITALS: BP 127/72; PULSE 68; RESP 19; TEMP 37; O2SAT 100; BMI 17.9
[2021-04-10 15:30] LABS: UTC Strep Screen (Rapid) Positive (Negative)
--- NOTE | 2021-04-10 15:35 | HMH.EDUTC ---
[facility] [place] Impression: Strep throat Disposition: Home, Self-Care Condition on Discharge: Good Instructions: Strep Throat, DI for Strep Throat Additional Instructions: *Monitor Temp, Over the counter Motrin or Tylenol as directed/as needed Tylenol every 4 hours and Motrin every 6 hours (as long as your family doctor has told you that you can take it) for fever or pain. and straight to ER if unable to lower temp less than 101.0 after medication given *Warm salt water gargles may help to soothe the throat *Throat Lozenges *Warm fluids like tea with honey may help to soothe the throat *Sleep elevated *Humidifier/Vaporizer *If you did not take Penicillin shot or was unable to, start taking antibiotic immediately and make sure that you take it for the FULL length of time although you should start to feel better in 24-48 hours *change toothbrush and toothpaste 24-48 hours after starting to take antibiotics so you do not reinfect yourself Monitor Temp. Tylenol and/or Ibuprofen as needed. ER if fever is no less than 101 despite alternating Tylenol and Ibuprofen * Encourage fluids, water, Gatorade, powerade, pedialyte if infant/toddler/or child *Cold fluids, popsicles and ice cream may feel good on his throat Follow up IMMEDIATELY for new or worsening symptoms or no Noticeable improvement over the next 48-72 hours. 911 for difficulty breathing or swallowing You were tested for today for COVID19 your test result should be back in the next 24-48 hours, you may check your test results on the [facility] [employer] Portal if you have trouble logging on you may call You was given a handout with instructions for Self Quarantine and Self isolation for while you wait on test results and what to do if they are positive If you are positive the Health Dept will be contacting you also Make sure to take your Vitamins Vit. C Vit D and Zinc if you can take them Prescriptions: Amoxicillin [Amoxicillin 500mg Cap] 500 mg PO TID #30 cap Transmission Status: Pending to [facility] #[id number] Referrals: Rubens Guzmán MD [Primary Care Provider] - As needed Bolivar Zarate MD [Staff Physician] - Andria Lowe MD [Consulting Physician] - Forms: Work/School Release Time of Disposition: 15:40 Medical Decision Making - Jairo Inquiry Pt receiving controlled substance: No Jairo was queried for this patient: No Vital Signs: 04/10/21 14:55 Temperature 98.6 F Temperature Source Oral Pulse Rate [Right Brachial] 68 Respiratory Rate 19 Blood Pressure [Right Arm] 127/72 Blood Pressure Mean [Right Arm] 90 Blood Pressure Source [Right Arm] Automatic Cuff Blood Pressure Position [Right Arm] Sitting 02 Sat by Pulse Oximetry 100 Oxygen Delivery Method Room Air - Lab Data Lab results reviewed: Yes: I reviewed the patient's lab results. Lab Results 04/10/21 15:12: Strep Scn Rapid Clinic Positive A Orders (Tests/Meds): ORDERS Category Date Time Status Covid-19 Nasal PCR ([facility]) Routine Lab 04/10/21 15:13 Ordered [facility] [place] - General Stated complaint: sore thrroat, body aches Time Seen by Provider: 04/10/21 15:35 Mode of Arrival: Ambulatory Source of Information: Patient Limitations: No Limitations Description of Symptoms (Recalled from Triage Doc. by RN): PATIENT C/O SORE THROAT, NAUSEA AND BODY ACHES. REQUESTING COVID AND STREP TEST HEENT Symptoms (Recalled from RN notes): Yes Resp Symptoms (Recalled from RN notes): No Skin Symptoms (Recalled from RN notes): No MS Symptoms (Recalled from RN notes): No Functional Status (Recalled from RN notes): WNL - History of Present Illness Provider Complaint: Patient states that she has been having sore throat, body aches, headache and nausea for several days State that she gets strep throat alot and feels like she may have strep throat again States that work sent her home and said she had to have COVID test to return so she wanted to get strep test and COVID test today - Rela
[2021-04-10 15:46] VITALS: BP 127/72; PULSE 68; RESP 19; TEMP 37; O2SAT 100
== END 2021-04-10 15:47 | disposition home or self-care (01) ==
PROVIDERS: Emergency Provider Nurse Practitioner; PCP Internal Medicine Adolescent Medicine
DX: J02.0 Streptococcal pharyngitis (principal); F41.8 Other specified anxiety disorders; F17.210 Nicotine dependence, cigarettes, uncomplicated; J45.909 Unspecified asthma, uncomplicated
CPT/HCPCS: 87880; 99203; C9803; G0463; U0003; U0005

== ENCOUNTER → 2021-05-29 05:05 | Outpatient (CLI) | payer OTHER, SELFPAY ==
[2021-05-29 07:37] LABS: Influenza A, PCR Not Detected (NotDetected); Influenza B, PCR Not Detected (NotDetected)
[2021-05-29 08:02] LABS: Coronavirus 19, PCR Detected (NotDetected)
== END ==
PROVIDERS: PCP Internal Medicine Adolescent Medicine; Visit Provider Emergency Medicine
DX: U07.1 COVID-19 (principal)
CPT/HCPCS: C9803; U0003; U0005

== ENCOUNTER 2024-08-16 15:05 | Outpatient (CLI) | payer SELFPAY ==
[2024-08-16 21:00] LABS: Coronavirus 19, PCR Not Detected (NotDetected); Influenza A, PCR Not Detected (NotDetected); Influenza B, PCR Not Detected (NotDetected)
== END 2024-08-16 23:59 | disposition home or self-care (01) ==
LOC: LAB.DROPOF 08-18 12:57
PROVIDERS: PCP Student in an Organized Health Care Education/Training Program; Visit Provider Student in an Organized Health Care Education/Training Program
DX: J02.0 Streptococcal pharyngitis (principal); R68.89 Other general symptoms and signs
CPT/HCPCS: 87636

== ENCOUNTER 2025-01-23 10:08 | Emergency (ER) | payer OTHER, SELFPAY ==
--- OUTSIDE RECORDS SUMMARY | 2024-02-28 09:20 | XMS_ITS ---
Author Organization [facility] Address [address] [place] [address] Care Team Providers Care Draw In Hand Name Role Phone Ysabel Zamorano Primary Care Provider [phone] ARIEL RADHA Unavailable Unavailable REASON FOR VISIT follow up Encounters Encounter Location Date Provider Diagnosis [place] [facility] [address] [place] [address] 02/28/2024 Ysabel Zamorano Plan Of Treatment No Information Progress Notes * Gustavo GAODOB:[birth year] (25 yo F)Acc No.[id number]:02/28/2024 Progress Notes Patient: Gustavo KENT Provider: HILARIO Chandler :2000 A ge:24 Y S ex:Female Date:02/28/2024 [id number] Subjective: * Chief Complaints: * 1 . Follow up. * Medical History: Objective: * Vitals: Assessment: Plan: * Treatment: * Billing Information: * Visit Code: * Procedure Codes: Care Plan Details* * Electronic signature of Ysabel Zamorano PA-C on 01/23/2025 at 10:30 AM EDT Sign off status: Pending * Provider: HILARIO Chandler Date: 1 Generated for Printi ng/Faxing/eTransmitting on: 0 01/23/2025 10:30 AM EDT
--- OUTSIDE RECORDS SUMMARY | 2025-01-23 10:30 | XMS_ITS | Clinical Summary ---
Author Organization [facility] Address [address] [place] [address] Care Team Providers Care Booster Pump Oiler Name Role Phone Ysabel Zamorano PA-C Primary Care Provider Allergies Active Allergy Reactions Criticality Noted Date Comments Cephalexin Hives Low 08/09/2021 Medications clindamycin (CLINDAGEL) 1 % gel Every 12 (Twelve) Hours. 4 Active vitamin D (ERGOCALCIFEROL) 1.25 MG (13674 UT) capsule capsule Take 1 capsule by mouth 1 (One) Time Per Week. 4 Active ACCRUFeR 30 MG capsule Every 12 (Twelve) Hours. 4 Active minocycline (MINOCIN,DYNACIN) 50 MG capsule 1 cap(s) orally daily for Acne for 30 days 4 Active ondansetron ODT (ZOFRAN-ODT) 4 MG disintegrating tablet DISSOLVE 1 TABLET ON THE TONGUE EVERY 8 HOURS NEEDED FOR NAUSEA OR VOMITING 4 Active QUEtiapine (SEROquel) 25 MG tablet 1 tab(s) orally At Bedtime for 30 day(s) 3 Active tretinoin (Retin-A) 0.1 % cream 1 calin applied topically once a day (at bedtime) for 30 day(s) 4 Active ondansetron ODT (ZOFRAN-ODT) 4 MG disintegrating tabletIndications: Nausea and vomiting, unspecified vomiting type Place 1 tablet on the tongue Every 8 (Eight) Hours As Needed for Nausea or Vomiting. 10 tablet 4 Active azelastine (ASTELIN) 0.1 % nasal sprayIndications:N zeyad congestion 2 sprays into the nostril(s) as directed by provider 2 (Two) Times a Day. Use in each nostril as directed 30 mL 4 Active naproxen (NAPROSYN) 375 MG tablet Take 1 tablet by mouth Every 12 (Twelve) Hours. 4 Active Active Problems No known active problems Family History Medical History Relation Name Comments Bleeding Disorder Maternal Grandmother Relation Name Status Comments Maternal Grandmother Other breast Social History Tobacco Use Types Packs/Day Years Used Date Smoking Tobacco: Every Day Cigarettes 0.5 13 Smokeless Tobacco: Never Tobacco Cessation:Ready to Q uit: Not Asked; Counseling Given: Not Answered Alcohol Use Standard Drinks/Week Comments Not Currently 0 (1 standard drink = 0.6 oz pur e alcohol) Overall Financial Resource Strain (CARDIA) Answe r Date Recorded How hard is it for you to pa y for the very basics like food, housing, medical care, and heating? Somewhat hard 03/11/2020 [facility] Occup[facility] ional [facility] - Occupational Stress Questionnaire Answer Date Recorded Do you feel stress - tense, restless, nervous, or anxious, or unable to sleep at night because your mind is troubled all the time - these days? Only a little 03/11/2020 Exercise Vital Sign Answer Date Recorde d On average, how many days pe r week do you engage in moderate to strenuous exercise (like a brisk walk)? 0 days 03/11/2020 On average, how many minutes do you engage in exercise at this level? 0 min 03/11/2020 Hunger Vital Sign Answer Date Recorded Within the past 12 months, y ou worried that your food would run out before you got the money to buy more. Never true 03/11/20 20 Within the past 12 months, t he food you bought just didn't last and you didn't have money to get more. Never true 03/11/2020 PRAPARE - Transportation Answer Date Re corded In the past 12 months, has l ack of transportation kept you from medical appointments or from getting medications? Yes 02/25 In the past 12 months, has l ack of transportation kept you from meetings, work, or from getting things needed for daily living? No 03/11/2020 Abuse Screen Answer Date Recorded Feels Unsafe at Home or Work/School no 10/27/2023 Feels Threatened by Someone no 05/2023 Does Anyone Try to Keep You From Having Contact with Others or Doing Things Outside Your Home? no 10/27/2023 Physical Signs of Abuse Present no 10/27/2023 Comments No Sex and Gender Information Value Date Recorded Sex Assigned at Female 05/29/2023 12:30 AM EST Legal Sex Female 2:40 PM EDT Gender Identity Female 05/29/2023 12:30 AM EST Sexual Orientation Bisexual 05/29/2023 12 :30 AM EST Last Filed Vital Signs Vital Sign Reading Time Taken Comments Blood Pressure 112/59 05/07/2024 4:50 PM EST Pulse 100 05/07/2024 4:50 PM EST Temperature 37.4 C (99.3 F) 05/07/2024 4:50 PM EST Respiratory Rate 16 05/07/2024 4:50 PM EST Oxygen Saturation 100% 05/07/2024 4:50 PM EST Inhaled Oxygen Concentration - - Weight 59.6 kg (131 lb 8 oz) 05/07/2024 4:50 PM EST Height 165.1 cm (5' 5 ) 05/07/2024 4:50 PM EST Body Mass Index 21.88 05/07/2024 4:50 PM EST Plan of Treatment Health Maintenance Due Date Last Done Comments Annual Gynecologic Pelvic and Breast Exam 1999 HPV VACCINES (1 - 3-dose series) 2014 Pneumococcal Vaccine 0-49 (1 of 2 - PCV) 2018 TDAP/TD VACCINES (1 - Tdap) 2018 PAP SMEAR 01/02/2020 ANNUAL PHYSICAL 02/27/2020 HEPATITIS C SCREENING 02/27/2020 COVID-19 Vaccine ( - 2023- season) 2024 INFLUENZA VACCINE 02/25/2025 CHLAMYDIA SCREENING Discontinued 01/07/2023 Procedures Procedure Name Priority Date/Time Associated Diagnosis Comments NATALIA ALBICANS, GARDNERELLA VAGINALIS, TRICHOMONAS VAGINALIS,DNA STAT 01/07/2023 4:31 PM EDT from Last 3 Months or Most Recently Relevant to Health Maintenance Results * Gardnerella vaginalis, Trichomonas vaginalis, Natalia albicans, DNA - Swab, Vagina (01/07/2023 4:31PM EDT) GARDNERELLA VAGINALIS Negative Negative 01/07/2023 5:38 PM EDT [facility] TRICHOMONAS VAGINALIS Negative Negative 01/07/2023 5:38 PM EDT [facility] NATALIA SPECIES Negative Negative 5:38 PM EDT [facility] Swab Vaginal structure / Unknown Collection / Unknown 01/07/2023 4:31 PM EDT 01/07/2023 4:39 PM EDT Mk Wilson PA-C MICROBIOLOGY - GENERAL O RDERABLES Final Result [facility]
[address] [place] [address], [place] [phone] from Last 3 Months or Most Recently Relevant to Health Maintenance Insurance [facility] Care Teams Booster Pump Oiler Relationship Specialty Start Date End Date Ysabel Zamorano PA-C [address] [place] [id number] PCP - General Physician Slate Splitter 05/25/23
--- OUTSIDE RECORDS SUMMARY | 2025-01-23 10:30 | XMS_ITS | Patient Health Record ---
Author Organization [facility] Address [address] [address] Care Team Providers Care Director Of Community Services Name Role Phone Ysabel Zamorano Primary Care Provider KARI RADHA Unavailable Unavailable CruzKristi owens Unavailable [phone] [employer], Provider Unavailable Unavailable Allergies Allergen (clinical drug ingredient) Drug/Non Drug Allergy documented on EMR Reaction Allergy Type Onset Date Status cephalexin Cephalexin Unknown Drug Allergy Activ e Results Component Value Reference Range Notes Thyroid Antibodies Reviewed date:04/14/2024 09:08:14 AM Interpretation: Performing Lab[facility] [address], [place], Phone - [phone], Director - Ryne Notes/Report: Thyroid Peroxidase (TPO) Ab 176 0-34 IU/mL Thyroglobulin Antibody 1.3 0.0-0.9 IU/mL Thyroglobulin Antibody measured by Levi Naman Methodology . It should be noted that the presence of thyroglobulin antibodies may not be pathogenic nor diagnostic, especially at very low levels. The assay clinical documentation clerk has found that four percent of individuals without evidence of thyroid disease or autoimmunity will have positive TgAb levels up to 4 IU/mL. CBC Reviewed date:04/02/2024 09:00:42 PM Interpretation: Performing Lab: Notes/Report: WBC 7.90 4.50-11.00 10 RBC 4.7 4.1-5.1 10 HGB 13.6 11.1-15.9 g/dl HCT 39.0 34.0-46.6 % MCV 83.6 75.0-100.0 fl MCH 29.3 27.5-33.2 pg MCHC 35.0 31.0-38.0 g/dl PLT 264.0 150.0-450.0 10 RDW% 11.2 11.0-16.0 % Gran% 65.7 35.0-80.0 % Lymph% 26.9 15.0-50.0 % Mid% 7.4 2.0-15.0 % Gran# 5.2 1.2-8.0 10 Lymph# 2.1 0.5-5.0 10 Mid# 0.6 0.1-1.5 10 COMPREHENSIVE METABOLIC PANE L Reviewed date:04/03/2024 08:09:41 AM Interpretation: Performing Lab: Notes/Report: Glucose-V 85.0 74.0-106.0 mg/dL BUN-V 3.0 7.0-17.0 mg/dL Creatinine, Blood-V 0.6 0.5-1.0 mg/dL Estimated Glomerular Filtration Rate(calculated) 129.5 sodium-V 140.0 136.0-145.0 mEq/L Potassium-V 4.0 3.5-5.1 mEq/L Chloride-V 107.0 98.0-107.0 mEq/L CO2, Total-V 23.0 22.0-30.0 mEq/L Blood Osmolality Calc.-V 285.8 273.0-304.0 mOsm ol/kg Calcium-V 9.4 8.4-10.2 mg/dL Protein, Total-V 7.3 6.3-8.2 g/dL Albumin-V 4.8 3.5-5.0 g/dL Bilirubin, Total-V 1.0 0.0-1.1 mg/dL Alkaline Phosphatase (ALP)- V 54.0 20.0-349.0 IU/L AST (SGOT)-V 25.0 14.0-36.0 U/L BUN/Creatinine Ratio(calculated)-V 5.0 10.0-24.0 Anion Gap-V 14.0 8.0-23.0 mEq/L A/G Ratio-V 1.9 0.8-2.0 Alanine Amino (ALT) (SGPT)-V 19.0 9.0-52.0 IU/L IRON PROFILE Reviewed date:04/16/2024 04:41:38 PM Interpretation: Performing Lab: Notes/Report: Iron-V 39.0 37.0-170.0 ug/dL Transferrin-V 276.9 206.0-381.0 mg/dL TIBC-V 314.0 265.0-497.0 ug/dl Ferritin-V 22.8 50.0-200.0 ng/mL VITAMIN B12 PROFILE-V Reviewed date:04/02/2024 09:00:42 PM Interpretation: Performing Lab: Notes/Report: Vitamin B12-V 341.0 239.0-931.0 pg/mL Folic Acid-V 5.8 2.8-20.0 ng/mL VITAMIN D-V Reviewed date:04/02/2024 09:00:42 PM Interpretation: Performing Lab: Notes/Report: Vitamin D 25 Hydroxy-V 30.8 30.0-100.0 ng/mL THYROID PROFILE Reviewed date:04/02/2024 09:00:42 PM Interpretation: Performing Lab: Notes/Report: TSH-V 1.2700 0.4650-4.6800 ulU/mL FREE T4-V 1.0 0.8-2.2 ng/dl MAGNESIUM-V Reviewed date:04/02/2024 09:00:42 PM Interpretation: Performing Lab: Notes/Report: Magnesium-V 2.1 1.6-2.3 mg/dL PHOSPHOROUS-V Reviewed date:04/02/2024 09:00:42 PM Interpretation: Performing Lab: Notes/Report: Phosphorus-V 3.3 2.5-4.5 mg/dL US THYROID [id number] Reviewed date:04/02/2024 08:57:49 PM Interpretation:Negative Performing Lab: Notes/Report: PROCEDURE: US THYROID 86759 REASON FOR EXAM: E06.3. Abnormal thyroid laboratory values TECHNIQUE: High-resolution grayscale ultrasound imaging of the thyroid gland was performed along with limited color flow Doppler imaging. COMPARISON: None available THYROID SIZE: Right thyroid lobe: 4.9 x 1.2 x 2.0 cm Left thyroid lobe: 4.6 x 1.0 x 1.8 cm Thyroid isthmus thickness: 0.1 cm FINDINGS: The thyroid gland is relatively homogeneous in echotexture. There is a 4 mm benign-appearing nodule in the mid left lobe. IMPRESSION: Tiny benign-appearing nodule in the left lobe. Otherwise negative thyroid ultrasound Interpreting Physician:NAYAN Muñized: 04/02/2024 08:32 [facility]:Thank you for visiting our imaging center. PDF Report Reviewed date:04/25/2024 04:02:41 PM Interpretation: Performing Lab:[facility], [place], Phone - [phone], Director - Caridad Notes/Report: Clinical Information:[id number] No. of containers..01 ThinPrep Vial PDF Report1 [facility] Nuab Vaginitis Plus (VG+) Reviewed date:04/13/2024 03:08:05 PM Interpretation: Performing Lab:[facility] [place], [place], Phone - [phone], Director - Caridad Notes/Report: Clinical Information:SRC: Megasphaera 1 was developed and its performance characteristics determined by [employer]. It has not been cleared or approved by the Food and Drug Administration. Test(s) 427337-Fmkafwv albicans, NORBERTO; 220500-Cfxvuan glabrata, NORBERTO was developed and its performance characteristics determined by [employer]. It has not been cleared or approved by the Food and Drug Administration. Atopobium vaginae Low - 0 BVAB 2 Low - 0 Megasphaera 1 Low - 0 Calculate total score by adding the 3 individual bacterial vaginosis (BV) marker scores together. Total score is interpreted as follows: Total score 0-1: Indicates the absence of BV. Total score 2: Indeterminate for BV. Additional clinical data should be evaluated to establish a diagnosis. Total score 3-6: Indicates the presence of BV. Natalia albicans, NORBERTO Negative Negative Natalia glabrata, NORBERTO Negative Negative Trich vag by NORBERTO Negative Negative Chlamydia trachomatis, NORBERTO Negative Negative Neisseria gonorrhoeae, NORBERTO Negative Negative PAP TEST [id number] AGE 21 TO 29 YEARS Reviewed date:04/25/2024 04:02:41 PM Interpretation: Performing Lab:[facility] [place], Phone - [phone], Director - Caridad Notes/Report: Clinical Information:[id number] No. of containers..01 ThinPrep Vial Clinical Information:[id number] No. of containers..01 ThinPrep Vial DIAGNOSIS: EPITHELIAL CELL ABNORMALITY. ATYPICAL SQUAMOUS CELLS OF UNDETERMINED SIGNIFICANCE (ASC-US). Specimen adequacy: Satisfactory for evaluation. Endocervical and/or squamous metaplastic cells (endocervical component) are present. Clinician provided ICD10: N89.8 Z12.4 Performed by: Uzma mclcendon, Tube Wrapper ([facility]) Electronically signed by: Santos MD, Pathologist . . Pathologist provided ICD10: R87.610 Note: The Pap smear is a screening test designed to aid in the detection of premalignant and malignant conditions of the uterine cervix. It is not a diagnostic procedure and should not be used as the sole means of detecting cervical cancer. Both false-positive and false-negative reports do occur. . Test Methodology: This liquid based ThinPrep(R) pap test was screened with the use of an image guided system. . See below for HPV testing results. . Chlamydia, Nuc. Acid Amp Negative Negative Gonococcus, Nuc. Acid Amp Negative Negative Trich vag by NORBERTO Negative Negative HPV Aptima Negative Negative This nucleic acid amplification test detects fourteen high-risk HPV types (16,18,31,33,35,39,45,51,52, 56,58,59,66,68) without differentiation. Reason For Referral No Information Medications Medication SIG (Take, Route, Frequency, Duration) Notes Start Date End Date Status Minocycline HCl 50 MG 1 cap(s) orally daily for Acne for 30 days 06/04/2023 Active ACCRUFeR 30 MG 1 cap(s) orally 2 times a day for 30 days 06/04/2023 Active Vitamin D (Ergocalciferol) 1.25 MG (63939 UT) 1 cap(s) orally once a week for 28 day(s) 06/04/2023 Active Azithromycin 250 MG 2 tablets on the first day, then 1 tablet daily for 4 days orally daiky for 5 days 05/22/2023 Not-Taking CLINDAMYCIN, TOPICAL 1% 1 GRACE APPLIED TOPICALLY 2 TIMES A DAY for 30 DAY(S) *Please review for potential replacement for e-prescription and drug interaction check* 06/04/2023 Active Retin-A 0.1 % 1 grace applied topically once a day (at bedtime) for 30 day(s) 06/18/2023 Active methylPREDNISolone 4 MG as directed, steroid pack Orally daily for 6 days 04/09/2024 Active Naproxen 375 MG 1 tab(s) Orally 2 times a day for 30 days 04/01/2024 Active Ondansetron 4 MG 1 tab(s) orally 3 times a day prn for 30 days Active QUEtiapine Fumarate 25 MG 1 tab(s) orally At Bedtime for 30 day(s) 05/22/2023 Active Social History Tobacco Use: Social History Observation Description Date Details (start date - stop date) Current Smoker NA - NA Tobacco Use: Question Answer Notes Are you a: current smoker How often do you smoke cigarettes? DAILY How many cigarettes a day do you smoke? 5 or les s How soon after you wake up d o you smoke your first cigarette? after 60 min Are you interested in quitting? Thinking about q uitting Additional Findings: Tobacco User Light cigarett e smoker ((1-9 cigs/day) Alcohol Screen Question Answer Notes Did you have a drink containing alcohol in the p ast year? No Points 0 Interpretation Negative Section Notes: 06/04/23-Yolanda 07/03/23-Jayden 07/03/23-Jayden 07/03/23-Jayden Problems Problem Type SNOMED Code ICD Code Onset Dates Problem Status W/U Status Risk Notes Problem Iron deficiency anemia, unspecified (D50.9) Active confirmed Problem Autoimmune thyroiditis (62706541) Autoimmune thyroiditis (E06.3) Active confirmed Problem 18982718 Anxiety (F41.9) Active confirmed Problem 58562581 Vitamin D defici ency (E55.9) Active confirmed Problem 068331809 Moderate episode of recurrent major depressive disorder (F33.1) Active confirmed Problem 207977306 Mild intermitten t asthma without complication (J45.20) Active confirmed Problem 71728599 Iron deficiency anemia, unspecified iron deficiency anemia type (D50.9) Active confirmed Problem 678296989 Psychophysiologi clifford insomnia (F51.04) Active confirmed Problem 6838981 Thyromegaly (E01.0) Active confirmed Vital Signs Temperature 99.7 degrees Fahrenheit 04/09/2024 Respiratory Rate 16 /min 04/09/2024 Oximetry 99 % 04/09/2024 Blood pressure diastolic 68 mm Hg 04/09/2024 Height 65 in 04/09/2024 Blood pressure systolic 100 mm Hg 04/09/2024 Weight 129.0 lbs 04/09/2024 BMI 21.46 kg/m2 04/09/2024 Encounters Encounter Location Date Provider Diagnosis [facility] - Billing [address] [place] [address] 02/09/2024 Provider ZMcarlita Harding Rolando [facility] [address] [place] [address] 04/01/2024 Kristi Cruz Acne vulgaris L70.0 ; Psychophysiological insomnia F51.04 ; Autoimmune thyroiditis E06.3 ; Nausea R11.0 ; Pain in right leg M79.604 ; Pain in left leg M79.605 ; Medication monitoring encounter Z51.81 ; Iron deficiency anemia, unspecified iron deficiency anemia type D50.9 ; Vitamin D deficiency E55.9 ; Thyromegaly E01.0 and Anxiety F41.9 [facility] [address] [place] [address] 04/09/2024 Kristi Cruz Screening for cervic al cancer Z12.4 ; Vaginal discharge N89.8 ; Mastalgia N64.4 ; Unspecified lump in the right breast, unspecified quadrant N63.10 ; Unspecified lump in the left breast, unspecified quadrant N63.20 and TMJ (temporomandibular joint disorder) M26.609 [facility] [address] [place] [address] 04/03/[address] [facility] [address] [place] [address] 04/10/2024 Ysabel Zamorano Vaginal discharge N8 9.8 and Screening for cervical cancer Z12.4 [facility] [address] [place] [address] 04/15/2024 Ysabel Zamorano Unspecified lump in the right breast, unspecified quadrant N63.10 and Unspecified lump in the left breast, unspecified quadrant N63.20 [facility] [address] [place] [address] 04/25/2024 Ysabel Harding [address] [place] [id number] 12/31/2024 Ysabel Zamorano Assessments Encounter Date Diagnosis (ICD Code) Assessment Notes Treatment Notes Treatment Clinical Notes Section Notes 04/01/2024 Acne vulgaris (ICD-1 0 - L70.0) 04/09/2024 Vaginal discharge (ICD-10 - N89.8) 04/09/2024 Screening for cervic al cancer (ICD-10 - Z12.4) 04/10/2024 Vaginal discharge (ICD-10 - N89.8) 04/15/2024 Unspecified lump in the right breast, unspecified quadrant (ICD-10 - N63.10) 04/15/2024 Unspecified lump in the left breast, unspecified quadrant (ICD-10 - N63.20) 04/10/2024 Screening for cervic al cancer (ICD-10 - Z12.4) 04/09/2024 Mastalgia (ICD-10 - N64.4) 04/01/2024 Psychophysiological insomnia (ICD-10 - F51.04) 04/01/2024 Autoimmune thyroidit is (ICD-10 - E06.3) 04/09/2024 Unspecified lump in the right breast, unspecified quadrant (ICD-10 - N63.10) 04/09/2024 Unspecified lump in the left breast, unspecified quadrant (ICD-10 - N63.20) 04/01/2024 Pain in right leg (ICD-10 - M79.604) 04/01/2024 Nausea (ICD-10 - R11.0) 04/01/2024 Pain in left leg (ICD-10 - M79.605) 04/09/2024 TMJ (temporomandibul ar joint disorder) (ICD-10 - M26.609) 04/01/2024 Medication monitorin g encounter (ICD-10 - Z51.81) 04/01/2024 Iron deficiency anem ia, unspecified iron deficiency anemia type (ICD-10 - D50.9) 04/01/2024 Vitamin D deficiency (ICD-10 - E55.9) 04/01/2024 Thyromegaly (ICD-10 - E01.0) 04/01/2024 Anxiety (ICD-10 - F41.9) Plan Of Treatment Pending Test Test Name Order Date US BREAST BILATERAL 59002 LTD 04/09/2024 NuSwab Vaginitis Plus (VG+) 04/10/2024 Future Test Test Name Order Date bilateral diagnostic mammogr am with right breast ultrasound and left breast ultrasound if needed 04/15/2024 Insurance Providers Payer Name Payer Address Payer Phone Subscriber Number Group Number Insured Name Patient Relationship to Insured Coverage Start Date Coverage End Date [employer] [facility] [address] [place] [address] [id number] Gustavo Gao Self - patient is the insured 4 [place] [address] [place] [address] [id number] Gustavo Gao Self - patient is the insured Medical (General) History Medical History History ICD Code Headache Dizziness Leg pain Allergies Asthma anemia arthritis anxiety Surgical History Surgery Date(Month/Year) 11/13/2017 12/26/2018 08/09/2020 salpingectomy 08/09/2020
[2025-01-23 10:35] VITALS: BP 106/67; PULSE 79; RESP 15; TEMP 36.8; O2SAT 100
[2025-01-23 10:45] LABS: Hematocrit 40.8 % (37.0-47.0); Hemoglobin 13.5 g/dL (12.2-16.2); Immature Granulocytes % 0.2 %; Mean Corpuscular HGB Conc 33.1 g/dL (31.8-35.4); Mean Corpuscular Hemoglobin 28.5 pg (27.0-31.2); Mean Corpuscular Volume 86.3 fl (81-99); Nucleated Red Blood Cells % 0 %; Platelet Count 245 K/mm3 (142-424); Red Blood Count 4.73 M/mm3 (4.20-5.40); Red Cell Distribution Width-SD 41.2 fL; White Blood Count 5.5 K/mm3 (4.8-10.8)
[2025-01-23 10:46] LABS: Albumin Level 4.9 g/dl (3.5-5.0); Chloride 106 mmol/L (98-107); Potassium 3.9 mmoL/L (3.5-5.1); Sodium 140 mmol/L (136-145)
[2025-01-23 10:49] LABS: Alanine Aminotransferase 19 U/L (12-78); Albumin/Globulin Ratio 1.8 (1.1-1.8); Alkaline Phosphatase 51 U/L (38-126); Anion Gap 10.9 mEq/L (5-15); Aspartate Amino Transferase 38 U/L (14-36); Bilirubin,Total 0.7 mg/dl (0.2-1.3); Blood Urea Nitrogen 6 mg/dl (7-17); Carbon Dioxide 27 mmol/L (22.0-30.0); Creatinine Clearance Estimated 105 mL/min (50-200); Creatinine,Serum 0.70 mg/dl (0.52-1.04); Estimated Glomerular Filt Rate 101 ml/min (>60); GFR (African American) 122 ML/MIN (>60); Globulin 2.8 g/dL (1.3-3.2); Total Protein,Serum 7.7 g/dl (6.3-8.2)
[2025-01-23 10:50] LABS: Calcium 9.5 mg/dl (8.4-10.2); Glucose 94 mg/dl (74-100)
--- NOTE | 2025-01-23 10:51 | US_ITS ---
PROCEDURE INFORMATION: Exam: US Pelvis, Transvaginal, Non-Obstetric Exam date and time: 01/23/2025 10:59 AM Age: 25 years old Clinical indication: Pelvic pain; Additional info: Left adnexal pain, history of cysts TECHNIQUE: Imaging protocol: Real-time transvaginal pelvic (non-obstetric) ultrasound with image documentation. Transvaginal imaging was used for better evaluation of the endometrium, adnexa, and/or cervix. COMPARISON: US TRANSVAGINAL 11/18/2020 10:43 PM FINDINGS: Uterus: At the level of the cervix anteriorly there is an 8 x 11 x 5 mm cyst with adjacent scarring presumably related to prior section. The endometrial echo complex measures 6 mm. There is a small subendometrial calcification over the right-side of the uterus posteriorly. The uterus measures 9.2 x 5.2 x 4.0 cm. Right ovary/adnexa: The right ovary measures 4.1 x 2.6 x 2.8 cm and contains follicles measuring up to 18 mm. Left ovary/adnexa: The left ovary measures 3.6 by 2.5 x 2.1 cm and contains small follicles. Arterial and venous waveforms are demonstrated within the left ovary at the time of the study on spectral pulse-wave duplex interrogation. Urinary bladder: Urinary bladder is limited. Intraperitoneal space: There is no free pelvic fluid. IMPRESSION: Essentially unremarkable post ultrasound of the pelvis.
[2025-01-23 10:59] LABS: HCG Qualitative, Serum Negative (Negative)
[2025-01-23 11:00] VITALS: BP 103/59; PULSE 64; O2SAT 100
[2025-01-23 11:12] LABS: Microscopic, Urine URINE MICROSCOPIC (MICROSCOPIC)
[2025-01-23 11:18] LABS: Bilirubin,Urine Negative (Negative); Color,Urine YELLOW (Yellow); Glucose,Urine (UA) Negative (Negative); Ketones,Urine Negative (Negative); Leukocyte Esterase,Urine Negative (Negative); PH,Urine 6.5 (5.0-8.5); Protein,Urine Negative (Negative); Specific Gravity, Urine 1.010 (1.005-1.030); Urobilinogen,Urine 0.2 EU/dl (0.2)
[2025-01-23 11:25] LABS: Bacteria,Urine Trace /lpf; Squamous Epithelial Cell,Urine Occasional #/hpf (0-5); WBC,Urine Occasional #/hpf (0-3)
[2025-01-23 11:30] VITALS: BP 107/72; PULSE 63; O2SAT 100
[2025-01-23 11:48] LABS: Iron 82 ug/dL (37-170)
[2025-01-23 11:57] LABS: Total Iron Binding Capacity 351 ug/dL (265-497)
[2025-01-23 12:00] VITALS: BP 103/62; PULSE 59; O2SAT 100
[2025-01-23 12:08] LABS: 25-OH Vitamin D, Total 37.0 ng/mL (30-100)
[2025-01-23 12:31] VITALS: BP 124/62; PULSE 63; O2SAT 100
[2025-01-23 12:39] LABS: Hepatitis C Ab Qual. W/ RFX NEGATIVE (Negative)
--- NOTE | 2025-01-23 12:41 | HMH.EDGENADL ---
Discharge Plan Disposition Patient Disposition: Home, Self-Care Condition: Good Prescriptions Prescriptions: No Action ferrous sulfate [Feosol] 325 mg (65 mg iron) tablet 325 mg PO DAILY tretinoin [Retin-A] 0.025 % cream 1 applic topical HS ondansetron HCl 4 mg tablet 4 mg PO Q8H clindamycin phosphate 1 % gel 1 applic topical DAILY ciprofloxacin HCl 500 mg tablet 500 mg PO BID 14 Days Qty: 28 0RF doxycycline hyclate 100 mg tablet 100 mg PO BID 14 Days Qty: 28 0RF naproxen 500 MG tablet 500 mg PO BID Referrals Follow up/Referrals: Libia Ferraro APRN [Primary Care Provider, Medical] - See instructions Activity Restrictions/Add. Instructions Additional Instructions/Restrictions: Please present to the OBGYN clinic at 2:30 PM following discharge for evaluation by OBGYN. Clinical Impressions Clinical Impression: Vaginal discharge, Adnexal pain Print Language Print Language: Egyptian Discharge ED Provider: Enoch Butler Adult HPI General Chief complaint: Abdominal Pain Stated complaint: sharp pain in lower left abdominal pain, back pain Time Seen by Provider: 01/23/25 10:34 Mode of Arrival: Ambulatory Source of Information: Patient Description of Symptoms (Recalled from ER Triage Doc. by RN): patient states she is having LLQ pain that is sharp and constant that began yesterday she has also had lower mid back pain for 2 weeks. she has history of ovarian cyst. havingblack vaginal discharge burning with urination and frequent urination. 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 She states that pains been going on for the last couple of days and is described as sharp in nature. She states this pain feels similar to the last time she had a ruptured ovarian cyst. She also tells me that she is having black discharge from the vagina. She has not had any fevers or chills. She denies dysuria and hematuria. She also denies nausea, vomiting, and diarrhea. Related Data Home Medications ?Medication ?Instructions ?Recorded ?Confirmed naproxen 500 mg tablet 500 mg PO BID Pain 04/10/21 01/23/25 ferrous sulfate 325 mg (65 mg 325 mg PO DAILY 08/16/24 01/23/25 iron) tablet (Feosol) clindamycin phosphate 1 % topical 1 applic topical DAILY 01/23/25 01/23/25 gel ondansetron HCl 4 mg tablet 4 mg PO Q8H 01/23/25 01/23/25 tretinoin 0.025 % topical cream 1 applic topical HS 01/23/25 01/23/25 (Retin-A) Previous Rx's ?Medication ?Instructions ?Recorded ciprofloxacin HCl 500 mg tablet 500 mg PO BID 14 days #28 tabs 01/23/25 doxycycline hyclate 100 mg tablet 100 mg PO BID 14 days #28 tabs 01/23/25 Allergies Allergy/AdvReac Type Severity Reaction Status Date / Time cephalexin (From KEFLEX) Allergy Intermediate I-RASH Verified 01/23/25 14:39 [facility] Disclaimer: The information contained in this section may have been updated after the patient was seen, as this information can be updated by other users. Medical History (Updated 01/23/25 @ 15:41 by Renita Guerrero DO) High risk sexual behavior Abnormal uterine bleeding (AUB) Anemia Neuropathy Dental abscess Ovarian cyst STD (female) COVID-19 virus infection Surgical History No pertinent past surgical history Family History Family/Other No significant family history Social History Smoking Status: Current every day smoker tobacco type: cigarettes packs per day: 1 second hand exposure: Yes alcohol intake: current alcohol intake frequency: a few times a week substance use type: denies use current occupational status: employed Travel in the last 8 weeks?: None household members: family housing: house current occupational exposures/hazards: No caffeine: No Other Medical History Have you received the Flu Vaccine for this season: No Have you received the Pneumonia Vaccine: No ROS Obtained: Yes Systems reviewed as appropriate & no additional complaints except as documented Physical Exam General General appearance: other (See MDM) Respiratory Respiratory exam: Present other (See MDM) Cardiovascular Cardiovascular exam: Present other (See MDM) Neurological Exam Neurological exam: Present other (See MDM) Medical Decision Making Medical Records Medical records reviewed: Yes I reviewed the patient's medical records. Screening: Per USPSTF and CDC recommendations, given the prevalence of disease in our region, it is our hospital?s policy to screen for HIV and viral Hepatitis for all patients aged 18 and over and those with ongoing risk factors. Jairo Inquiry Pt receiving controlled substance: No Jairo was queried for this patient: No Vital Signs: 01/23/25 10:35 01/23/25 11:00 01/23/25 11:30 Temperature 98.3 F Temperature Source Oral Pulse Rate 64 63 Pulse Rate [Right Radial] 79 Respiratory Rate 15 Blood Pressure 103/59 L 107/72 L Blood Pressure [Right Arm] 106/67 L Blood Pressure Mean [Right Arm] 80 Blood Pressure Source Blood Pressure Source [Right Arm] Automatic Cuff Blood Pressure Position Blood Pressure Position [Right Arm] Sitting 02 Sat by Pulse Oximetry 100 100 100 Oxygen Delivery Method Room Air 01/23/25 12:00 01/23/25 12:31 01/23/25 13:30 Temperature 98.1 F Temperature Source Oral Pulse Rate 59 L 63 70 Pulse Rate [Right Radial] Respiratory Rate 16 Blood Pressure 103/62 L 124/62 110/84 Blood Pressure [Right Arm] Blood Pressure Mean [Right Arm] Blood Pressure Source Automatic Cuff Blood Pressure Source [Right Arm] Blood Pressure Position Supine Blood Pressure Position [Right Arm] 02 Sat by Pulse Oximetry 100 100 Oxygen Delivery Method Room Air Room Air Lab Data Lab Results 01/23/25 10:29: WBC 5.5, RBC 4.73, Hgb 13.5, Hct 40.8, MCV 86.3, MCH 28.5, MCHC 33.1, RDW 13.1, Plt Count 245, MPV 10.9 H, Neut % (Auto) 52.1, Lymph % (Auto) 38.2, Kay % (Auto) 6.8, Eos % (Auto) 2.2, Baso % (Auto) 0.5, Neut # (Auto) 2.9, Lymph # (Auto) 2.1, Kay # (Auto) 0.4, Eos # (Auto) 0.1, Baso # (Auto) 0.0, Sodium 140, Potassium 3.9, Chloride 106, Carbon Dioxide 27, Anion Gap 10.9, BUN 6 L, Creatinine 0.70, Estimated Creat Clear 105, Estimated GFR 101, Est GFR ( Amer) 122, Glucose 94, Calcium 9.5, Iron 82, TIBC 351, Iron Saturation 23.69252, Total Bilirubin 0.7, AST 38 H, ALT 19, Alkaline Phosphatase 51, Total Protein 7.7, Albumin 4.9, Globulin 2.8, Albumin/Globulin Ratio 1.8, 25-OH Vitamin D Total 37.0, Serum HCG, Qual Negative, HCV Ab BARBARA w/Rflx PCR Qn Negative, HIV Ag/Ab Combo Qual Negative 01/23/25 11:06: Urine Color Yellow, Urine Appearance Clear, Urine pH 6.5, Ur Specific Calvert 1.010, Urine Protein Negative, Urine Glucose (UA) Negative, Urine Ketones Negative, Urine Blood Negative, Urine Nitrate Negative, Urine Bilirubin Negative, Urine Urobilinogen 0.2, Ur Leukocyte Esterase Negative, Urine RBC None, Urine WBC Occasional, Ur Squamous Epith Cells Occasional, Urine Bacteria Trace 01/23/25 10:29 01/23/25 10:29 Orders (Tests/Meds): ORDERS Category Date Time Status US transvaginal Stat Exams 01/23/25 10:51 Completed 25-OH Vitamin D, Total Stat Lab 01/23/25 10:29 Completed CBC w/Auto Diff [Complete Blood Count Auto Diff] Stat Lab 01/23/25 10:29 Completed CMP [Comprehensive Metabolic Panel] Stat Lab 01/23/25 10:29 Completed HCG Qualitative, Serum Stat Lab 01/23/25 10:29 Completed HIV Combo Stat Lab 01/23/25 10:29 Completed Hepatitis C Ab Qual. W/ RFX Stat Lab 01/23/25 10:29 Completed Iron and TIBC Stat Lab 01/23/25 10:29 Completed Trichomonas Vaginalis, NORBERTO Stat Lab 01/23/25 12:40 Received UA [Urinalysis and Microscopic] Stat Lab 01/23/25 11:06 Completed GC Culture Only Stat Micro 01/23/25 12:40 Received Medical Decision Narrative: In summary, this is a 25-year-old female patient who is presenting to the emergency department today for evaluation of left adnexal tenderness in addition to black vaginal discharge. Patient has comorbidities that include a history of ovarian cyst in the left as well as high-grade squamous intraepithelial lesions on prior Pap smears for which she was lost to follow-up. On initial evaluation of the patient they were resting comfortably in no acute distress and nontoxic in appearance. They are hemodynamically stable, saturating well room air, and are neurologically intact. On physical examination she does have tenderness over the left adnexa with no rebound or guarding. The remainder of her abdominal exam is unremarkable. The patient's heart and lungs are clear to auscultation bilaterally. I did consent the patient verbally for a pelvic speculum exam. On examination there was copious amounts of charcoal/black-colored discharge in the vaginal vault. The vaginal vault was tender to palpation with the speculum. I was unable to completely view the cervix secondary to how copious this discharge was. Differential diagnoses included cervical cancer, cervicitis, pelvic inflammatory disease, tubo-ovarian abscess, ovarian cyst rupture, ovarian torsion, among others We proceeded with hematologic labs as well as a transvaginal ultrasound. The patient did request that we obtain iron studies and a vitamin D level for her to follow-up with her primary care physician. For the sake of patient's satisfaction I have obtained the studies but will not act on any of these results. Labs were personally interpreted by me and demonstrate no evidence of leukocytosis. No actionable anemia. No electrolyte derangement acute kidney injury. Urinalysis demonstrates no evidence of urinary tract infection. During the pelvic exam discussed above, I did perform gonorrhea, chlamydia, and trichomonas swabs. I discussed with the patient her sexual behaviors and she states that she is monogamous with 1 partner and she believes him to be monogamous with her as well so she does not believe that she could have a sexually transmitted disease at this time. I have offered to empirically treat her with 500 mg of IM Rocephin and oral antibiotics and she has declined at this time until results of her gonorrhea, chlamydia, and trichomonas testing result Given that I was unable to identify the cervix on pelvic exam and she had such unusual colored discharge with a history of HGSIL, I decided to discuss this case with THERMAL INTELLIGENCE ANALYST. I discussed this case with Dr. Guerrero who had a clinic appointment available this afternoon at 2:30 PM. Patient stated that she was able to give to the clinic at this time so we will ultimately discharge the patient to the OB clinic for further evaluation over her vaginal discharge and left adnexal pain. Critical Care Critical Care Time Critical Care Time: No
--- NOTE | 2025-01-23 12:43 | PC.NURSE ---
OB doctor correction lieutenant paged.
--- NOTE | 2025-01-23 13:21 | PC.NURSE ---
Dr. Butler speaking with SUPERVISOR [employer]
[2025-01-23 13:30] VITALS: BP 110/84; PULSE 70; RESP 16; TEMP 36.7; O2SAT 99
[2025-01-27 21:56] LABS: Trichomonas Vaginalis, NAA Negative (Negative)
== END 2025-01-23 13:31 | disposition home or self-care (01) ==
PROVIDERS: Emergency Provider Student in an Organized Health Care Education/Training Program; PCP Nurse Practitioner Family
DX: R10.2 Pelvic and perineal pain (principal); N89.8 Other specified noninflammatory disorders of vagina; F17.210 Nicotine dependence, cigarettes, uncomplicated
CPT/HCPCS: 76830; 80053; 81001; 82306; 83540; 83550; 84703; 85025; 86803; 87081; 87389; 87661; 99284; 99285

== ENCOUNTER 2025-01-23 10:17 | Outpatient (CLI) | payer OTHER, SELFPAY ==
--- OUTSIDE RECORDS SUMMARY | 2024-02-28 09:20 | XMS_ITS ---
Author Organization [facility] Address [address] [place] [address] Care Team Providers Care Tandem Operator Name Role Phone Ysabel Zamorano Primary Care Provider ARIEL RADHA Unavailable Unavailable REASON FOR VISIT follow up Encounters Encounter Location Date Provider Diagnosis [place] [facility] [address] [place] [address] 02/28/2024 Ysabel Zamorano Plan Of Treatment No Information Progress Notes * Gustavo GAODOB:[birth year] (25 yo F)Acc No.[id number]:02/28/2024 Progress Notes Patient: Gustavo KENT Provider: HILARIO Chandler :2000 A ge:24 Y S ex:Female Date:02/28/2024 [id number] Subjective: * Chief Complaints: * 1 . Follow up. * Medical History: Objective: * Vitals: Assessment: Plan: * Treatment: * Billing Information: * Visit Code: * Procedure Codes: Care Plan Details* * Electronic signature of Ysabel Zamorano PA-C on 01/26/2025 at 10:19 AM EDT Sign off status: Pending * Provider: HILARIO Chandler Date: 1 Generated for Printi ng/Faxing/eTransmitting on: 0 01/26/2025 10:19 AM EDT
--- OUTSIDE RECORDS SUMMARY | 2025-01-26 10:20 | XMS_ITS | Clinical Summary ---
Author Organization [facility] Address [address] [place] [address] Care Team Providers Care Park Aide Name Role Phone Ysabel Zamorano PA-C Primary Care Provider [phone] Allergies Active Allergy Reactions Criticality Noted Date Comments Cephalexin Hives Low 08/09/2021 Medications clindamycin (CLINDAGEL) 1 % gel Every 12 (Twelve) Hours. 4 Active vitamin D (ERGOCALCIFEROL) 1.25 MG (30236 UT) capsule capsule Take 1 capsule by [...] medical care, and heating? Somewhat hard 03/11/2020 [facility] [place] of Occupat ional Health - Occupational Stress [...] VAGINALIS Negative Negative 01/07/2023 5:38 PM EDT [facility] TRICHOMONAS VAGINALIS Negative Negative 01/07/2023 5:38 PM EDT [facility] NATALIA SPECIES Negative Negative 5:38 PM EDT [facility] Swab Vaginal structure / Unknown Collection / Unknown 01/07/2023 4:31 PM EDT 01/07/2023 4:39 PM EDT Mk Wilson PA-C MICROBIOLOGY - GENERAL O RDERABLES Final Result [facility]
[address] [place] [address], [place] [phone] from Last 3 Months or Most Recently Relevant to Health Maintenance Insurance [facility] Care Teams Park Aide Relationship Specialty Start Date End Date Ysabel Zamorano PA-C [address] [place] [id number] PCP - General Physician Client Development Consultant 05/25/23
--- OUTSIDE RECORDS SUMMARY | 2025-01-26 10:20 | XMS_ITS | Patient Health Record ---
Author Organization [facility] Address [address] [address] Care Team Providers Care Orthodontic Laboratory Technician Name Role Phone Ysabel Zamorano Primary Care Provider [phone] RAD[address] PIERCE Unavailable Unavailable CruzKristi owens Unavailable [phone] [employer], Provider Unavailable Unavailable Allergies Allergen (clinical drug ingredient) Drug/Non Drug Allergy documented on EMR Reaction Allergy Type Onset Date Status cephalexin Cephalexin Unknown Drug Allergy Activ e Results Component Value Reference Range Notes Thyroid Antibodies Reviewed date:04/14/2024 09:08:14 AM Interpretation: Performing Lab:[facility], [place], [address], [place], Phone - [phone], Director - Ryne Notes/Report: Thyroid Peroxidase (TPO) Ab 176 0-34 IU/mL Thyroglobulin Antibody 1.3 0.0-0.9 IU/mL Thyroglobulin Antibody measured by Levi Naman Methodology . It should be noted that the presence of thyroglobulin antibodies may not be pathogenic nor diagnostic, especially at very low levels. The assay outpatient coder has found that four percent of individuals [...] Notes/Report: Phosphorus-V 3.3 2.5-4.5 mg/dL US THYROID 77124 Reviewed date:04/02/2024 08:57:49 PM Interpretation:Negative Performing Lab: Notes/Report: PROCEDURE: US THYROID 57827 REASON FOR EXAM: E06.3. Abnormal thyroid laboratory [...] lobe. Otherwise negative thyroid ultrasound Interpreting Physician:NAYAN Brushgned: 04/02/2024 08:32 [facility]:Thank you for visiting our imaging center. PAP TEST [id number] AGE 21 TO 29 YEARS Reviewed date:04/25/2024 04:02:41 PM Interpretation: Performing Lab:[facility], [facility], Phone - [phone], Director - Caridad Notes/Report: Clinical Information:[id number] No. of containers..01 ThinPrep Vial Clinical Information:[id number] No. of containers..01 ThinPrep Vial DIAGNOSIS: EPITHELIAL CELL ABNORMALITY. ATYPICAL SQUAMOUS CELLS OF UNDETERMINED SIGNIFICANCE (ASC-US). Specimen adequacy: Satisfactory for evaluation. Endocervical and/or squamous metaplastic cells (endocervical component) are present. Clinician provided ICD10: N89.8 Z12.4 Performed by: Uzma mcclendon, Rv Mechanic (ASCP) Electronically signed by: Santos MD, Pathologist . [...] high-risk HPV types (16,18,31,33,35,39,45,51,52, 56,58,59,66,68) without differentiation. PDF Report Reviewed date:04/25/2024 04:02:41 PM Interpretation: Performing Lab:[facility], Phone - [phone], Director - Caridad Notes/Report: Clinical Information:[id number] No. of containers..01 ThinPrep Vial PDF Report1 [facility] NuSwab Vaginitis Plus (VG+) Reviewed date:04/13/2024 03:08:05 PM Interpretation: Performing Lab:[facility] [place], [address] [place], Phone - [phone], Director - Caridad Notes/Report: Clinical Information:SRC: Megasphaera 1 was developed and its performance characteristics determined by [facility]. It has not been cleared or approved by the Food and Drug Administration. Test(s) 608536-Bpbkfqf albicans, NORBERTO; 743344-Xnpipiw glabrata, NORBERTO was developed and its performance characteristics determined by [facility]. It has not been cleared or approved [...] Negative Negative Neisseria gonorrhoeae, NORBERTO Negative Negative Reason For Referral No Information Medications Medication SIG (Take, Route, Frequency, Duration) Notes Start Date End Date Status Minocycline HCl 50 MG 1 cap(s) orally daily for Acne for 30 days 06/04/2023 Active ACCRUFeR 30 MG 1 cap(s) orally 2 times a day for 30 days 06/04/2023 Active Vitamin D (Ergocalciferol) 1.25 MG (02502 UT) 1 cap(s) orally once a week [...] W/U Status Risk Notes Problem Iron deficiency anemia (20797567) Iron deficiency anemia, unspecified (D50.9) Active confirmed Problem Autoimmune thyroiditis (65936764) Autoimmune thyroiditis (E06.3) Active confirmed Problem 93884894 Anxiety (F41.9) Active confirmed Problem 58500440 Vitamin D defici ency (E55.9) Active confirmed Problem 295695949 Moderate episode of recurrent major depressive disorder (F33.1) Active confirmed Problem 681377678 Mild intermitten t asthma without complication (J45.20) Active confirmed Problem 65727969 Iron deficiency anemia, unspecified iron deficiency anemia type (D50.9) Active confirmed Problem 693474038 Psychophysiologi clifford insomnia (F51.04) Active confirmed Problem 3962692 Thyromegaly (E01.0) Active confirmed Vital Signs Temperature 99.7 degrees Fahrenheit 04/09/2024 Respiratory Rate 16 /min 04/09/2024 Oximetry 99 % 04/09/2024 Blood pressure diastolic 68 mm Hg 04/09/2024 Height 65 in 04/09/2024 Blood pressure systolic 100 mm Hg 04/09/2024 Weight 129.0 lbs 04/09/2024 BMI 21.46 kg/m2 04/09/2024 Encounters Encounter Location Date Provider Diagnosis [facility] - Billing [address] [place] [address] 02/09/2024 Provider Nacho Amossanjana Marshall [facility] [address] [place] [address] 04/01/2024 Kristi Cruz Acne vulgaris L70.0 ; Psychophysiological insomnia F51.04 ; Autoimmune thyroiditis E06.3 ; Nausea R11.0 ; Pain in right leg M79.604 ; Pain in left leg M79.605 ; Medication monitoring encounter Z51.81 ; Iron deficiency anemia, unspecified iron deficiency anemia type D50.9 ; Vitamin D deficiency E55.9 ; Thyromegaly E01.0 and Anxiety F41.[address] [facility] [address] [place] [address] 04/09/2024 Kristi Cruz Screening for cervic al cancer Z12.4 ; Vaginal discharge N89.8 ; Mastalgia N64.4 ; Unspecified lump in the right breast, unspecified quadrant N63.10 ; Unspecified lump in the left breast, unspecified quadrant N63.20 and TMJ (temporomandibular joint disorder) M26.609 [facility] [address] [place] [address] [address] [place] [address] 04/03/2024 Ysabel Harding Rolando [facility] [address] [place] [address] 04/10/2024 Ysabel Zamorano Vaginal discharge N8 9.8 and Screening for cervical cancer Z12.4 [facility] [address] [place] [address] 04/15/2024 Ysabel Zamorano Unspecified lump in the right breast, unspecified quadrant N63.10 and Unspecified lump in the left breast, unspecified quadrant N63.[address] [facility] [address] [place] [address] 04/25/2024 Ysabel Harding [address] [address] 12/31/2024 Ysabel Zamorano Assessments Encounter Date Diagnosis [...] Test Name Order Date US BREAST BILATERAL 39020 LTD 04/09/2024 NuSwab Vaginitis Plus (VG+) 04/10/2024 Future Test Test Name Order Date bilateral diagnostic mammogr am with right breast ultrasound and left breast ultrasound if needed 04/15/2024 Insurance Providers Payer Name Payer Address Payer Phone Subscriber Number Group Number Insured Name Patient Relationship to Insured Coverage Start Date Coverage End Date [employer] [facility] [address] [place] [phone] [id number] Gustavo Gao Self - patient is the insured 4 [place] [address] [place] [address] [id number] Gustavo Gao Self - patient is the insured Medical (General) History Medical History History ICD Code Headache Dizziness Leg pain Allergies Asthma anemia arthritis anxiety Surgical History Surgery Date(Month/Year) 11/13/2017 12/26/2018 08/09/2020 salpingectomy 08/09/2020
== END 2025-01-23 23:59 ==
LOC: LAB.DROPOF 01-26 10:17
PROVIDERS: PCP Obstetrics & Gynecology; Visit Provider Obstetrics & Gynecology
DX: N93.9 Abnormal uterine and vaginal bleeding, unspecified (principal); N89.8 Other specified noninflammatory disorders of vagina; Z72.51 High risk heterosexual behavior
CPT/HCPCS: 87491; 87529; 87591; 87661; 87798; 87801

== ENCOUNTER 2025-01-27 11:53 | Emergency (ER) | payer OTHER, SELFPAY ==
[2025-01-27 12:25] VITALS: BP 117/81; PULSE 96; RESP 17; TEMP 36.8; O2SAT 99
--- NOTE | 2025-01-27 12:30 | PC.NURSE ---
pt stated she doesnt want an IV or blood work at this time. she would like to consult with the provider first
--- OUTSIDE RECORDS SUMMARY | 2025-01-27 12:33 | XMS_ITS | Clinical Summary ---
Author Organization [facility] Address [address] [place] [address] Care Team Providers Care Criminal Defense Attorney Name Role Phone Ysabel Zamorano PA-C Primary Care Provider [phone] Allergies Active Allergy Reactions Criticality Noted Date Comments Cephalexin Hives Low 08/09/2021 Medications clindamycin (CLINDAGEL) 1 % gel Every 12 (Twelve) Hours. 4 Active vitamin D (ERGOCALCIFEROL) 1.25 MG (98637 UT) capsule capsule Take 1 capsule by [...] medical care, and heating? Somewhat hard 03/11/2020 [facility] [place] of Occupat ional Health - Occupational Stress [...] VAGINALIS Negative Negative 01/07/2023 5:38 PM EDT [facility] TRICHOMONAS VAGINALIS Negative Negative 01/07/2023 5:38 PM EDT [facility] NATALIA SPECIES Negative Negative 5:38 PM EDT [facility] Swab Vaginal structure / Unknown Collection / Unknown 01/07/2023 4:31 PM EDT 01/07/2023 4:39 PM EDT Mk Wilson PA-C MICROBIOLOGY - GENERAL O RDERABLES Final Result [facility]
[address] [place] [address], [place] [phone] from Last 3 Months or Most Recently Relevant to Health Maintenance Insurance [facility] Care Teams Criminal Defense Attorney Relationship Specialty Start Date End Date Ysabel Zamorano PA-C [address] [place] [id number] PCP - General Physician Gas Reverser 05/25/23
--- NOTE | 2025-01-27 12:43 | ED_ITS ---
<Statement entered by Fabiana Rey MD - 01/27/25 15:16> I was consulted by the GRACE, and we discussed the complexity of the problems being addressed. I approved the treatment and management plan for this patient's care in the emergency department, thus performing a substantive portion of the medical decision making. Fabiana Rey MD, DEANDRE, FACEP Discharge Plan Disposition Patient Disposition: Home, Self-Care Condition: Good Prescriptions Prescriptions: No Action ferrous sulfate [Feosol] 325 mg (65 mg iron) tablet 325 mg PO DAILY tretinoin [Retin-A] 0.025 % cream 1 applic topical HS ondansetron HCl 4 mg tablet 4 mg PO Q8H clindamycin phosphate 1 % gel 1 applic topical DAILY ciprofloxacin HCl 500 mg tablet 500 mg PO BID 14 Days Qty: 28 0RF doxycycline hyclate 100 mg tablet 100 mg PO BID 14 Days Qty: 28 0RF naproxen 500 MG tablet 500 mg PO BID Referrals Follow up/Referrals: Libia Ferraro APRN [Primary Care Provider, Medical] - See instructions Activity Restrictions/Add. Instructions Additional Instructions/Restrictions: Please return to the emergency department with any worsening signs or symptoms, continue take all your medication as prescribed. Please follow-up with your PCP and [facility] in the upcoming days. Clinical Impressions Clinical Impression: Bloody emesis Instructions Patient Instructions: DI for Nausea -- Adult Print Language Print Language: [place] Discharge ED Provider: Fabiana Rey General Adult HPI General Chief complaint: Nausea/Vomiting/Diarrhea Stated complaint: Vomiting Blood Time Seen by Provider: 01/27/25 12:40 Mode of Arrival: Ambulatory Source of Information: Patient Description of Symptoms (Recalled from ER Triage Doc. by RN): pt to the ED from home with complaints of nausea, vomiting and stomach cramping. pt reports she was seen and treated for PID by Dr. Guerrero. pt stated she has been taking the medication they prescribed her but after she took it today she had 3 episodes of vomiting, two of which she thought had blood in it. History of Present Illness HPI narrative: 25-year-old female presents the emergency department with a 3 to 4-day history of nonbloody diarrhea, several episodes of vomiting, with 1-2 episodes vomiting today that were blood-tinged , patient [place] any fever chills chest pain shortness of breath, some nausea at times which she has been taking antiemetics for, admits to some abdominal cramping, denies any vaginal discharge or vaginal bleeding, denies any acute urinary symptomatology, no melena no hematochezia no hemoptysis. Patient has other past medical history consistent with HGSIL, patient is a current everyday smoker (vapes) denies any alcohol or drug use. Initial triage vitals unremarkable. Please note that above description of symptoms, in this electronic medical record under categorization of recalled from ER triage doctor by RN are reflective of an initial nursing assessment, however, is not reflective of my full history and physical exam that was personally taken and clarified. Consequentially, this preceding description of symptoms, which may include the patient's categorized chief complaint in the EMR, do not reflect my personal clinical impression, and the ultimate description of history of present illness and patient stated complaints should be deferred to this section of the note. Unless stated otherwise or congruent with this section of the note, additional signs, symptoms, or incongruence should be interpreted as inaccurate with my clinical impression. Onset (ago): day(s) Related Data Home Medications ?Medication ?Instructions ?Recorded ?Confirmed naproxen 500 mg tablet 500 mg PO BID Pain 04/10/21 01/23/25 ferrous sulfate 325 mg (65 mg 325 mg PO DAILY 08/16/24 01/23/25 iron) tablet (Feosol) clindamycin phosphate 1 % topical 1 applic topical NATI LY 01/23/25 01/23/25 gel ondansetron HCl 4 mg tablet 4 mg PO Q8H 01/23/2501/23 tretinoin 0.025 % topical cream 1 applic topical HS 01/23/25 (Retin-A) Previous Rx's ?Medication ?Instructions ?Recorded ciprofloxacin HCl 500 mg tablet 500 mg PO BID 14 days #28 tabs 01/23/25 doxycycline hyclate 100 mg tablet 100 mg PO BID 14 day s #28 tabs 01/23/25 Allergies Allergy/AdvReac Type Severity Reaction Status Date / Time cephalexin (From KEFLEX) Allergy Intermediate I-RASH Verified 01/23/25 14:39 [facility] Disclaimer: The information contained in this section may have been updated after the patient was seen, as this information can be updated by other users. Medical History (Updated 01/27/25 @ 13:32 by HILARIO Hernandez) High risk sexual behavior Abnormal uterine bleeding (AUB) Anemia Neuropathy Dental abscess Ovarian cyst STD (female) COVID-19 virus infection Surgical History No pertinent past surgical history Family History Family/Other No significant family history Social History Smoking Status: Current every day smoker tobacco type: cigarettes packs per day: 1 second hand exposure: Yes alcohol intake: current alcohol intake frequency: a few times a week substance use type: denies use current occupational status: employed Travel in the last 8 weeks?: None household members: family housing: house current occupational exposures/hazards: No caffeine: No Have you lived/traveled outside [place] in past 30 days?: No Contact w/someone who lives/traveled outside [place] past 30 days?: No Exposure to someone with infectious disease in past 14 days?: No Do you have a fever (greater than 100.4 F or 38 C)?: No Have you tested positive for COVID-19?: No Exposed to someone with COVID-19 in past 14 days?: No Do you have a sore throat?: No Do you have a cough?: No Do you have any weakness?: No Do you have any diarrhea?: No Are you experiencing any unusual bleeding?: No Do you have any muscle aches/pain?: No Do you have any abdominal pain?: No Are you experiencing loss of taste or smell?: No Other Medical History Have you received the Flu Vaccine for this season: No Have you received the Pneumonia Vaccine: No ROS Obtained: Yes All systems reviewed & no additional complaints except as documented Physical Exam General General appearance: alert and in no apparent distress Head Head exam: atraumatic and normocephalic Eye Eye exam: Present PERRL and EOMI ENT ENT exam: Present mucous membranes moist Neck Neck exam: Present normal inspection Chest Chest inspection: Present normal inspection and symmetric chest wall rise Respiratory Respiratory exam: Present normal lung sounds bilaterally; Absent respiratory distress Cardiovascular Cardiovascular exam: Present regular rate and normal rhythm Abdominal Exam Abdominal exam: Present soft; Absent tenderness, guarding or rebound Extremities Exam Extremities exam: Present normal inspection Neurological Exam Neurological exam: Present alert and oriented X3 Psychiatric Psychiatric exam: Present normal affect Skin Skin exam: Present warm and dry Medical Decision Making Medical Records Medical records reviewed: Yes I reviewed the patient's medical records. Screening: Per USPSTF and CDC recommendations, given the prevalence of disease in our region, it is our hospital?s policy to screen for HIV and viral Hepatitis for all patients aged 18 and over and those with ongoing risk factors. Jairo Inquiry Pt receiving controlled substance: No Jairo was queried for this patient: No Vital Signs: 01/27/25 12:25 Temperature 98.2 F Temperature Source Oral Pulse Rate [Left Radial] 96 H Respiratory Rate 17 Blood Pressure [Right Arm] 117/81 Blood Pressure Mean [Right Arm] 93 Blood Pressure Source [Right Arm] Automatic Cuff Blood Pressure Position [Right Arm] Sitting 02 Sat by Pulse Oximetry 99 Oxygen Delivery Method Room Air Medical Decision Narrative: 25-year-old female presents the emergency department with 1 episode of hematemesis, differential diagnose include but not limited to gastroenteritis, medication side effect, Cassy-Berumen tear among others. I discussed this patient's case with the attending physician Dr. Rey I had a long discussion with the patient the bedside at this time patient would like to avoid any IV or blood work, she is already currently taking her antibiotics for pelvic inflammatory disease for which she was tested for treated for and seen by [facility] she has upcoming follow-up with them, though symptoms have improved. Diarrhea started when she began taking her p.o. antibiotics, she has had no further episodes of hematemesis, and not complete hematemesis as blood-tinged vomit, with likely Cassy-Berumen tear, no recent nausea vomiting, patient was given strict ED return precautions, patient will be directed to follow-up with PCP and [facility] in the upcoming days. And return to the emerged part with any worsening signs or symptoms. She has remained hemodynamically stable without her time in the emergency department. Shared decision-making was utilized. Of note, patient has plenty of antiemetics left, advised her to take as needed. Patient tolerated p.o. intake here in the emergency department. Critical Care Critical Care Time Critical Care Time: No
[2025-01-27 13:43] VITALS: BP 100/68; PULSE 71; RESP 15; TEMP 36.6; O2SAT 99
== END 2025-01-27 13:44 | disposition home or self-care (01) ==
PROVIDERS: Emergency Provider Student in an Organized Health Care Education/Training Program; PCP Nurse Practitioner Family
DX: K92.0 Hematemesis (principal)
CPT/HCPCS: 99283